=== PATIENT | male | born 1955 | race Caucasian/White ===

== ENCOUNTER → 2019-09-04 13:52 | Outpatient (BNVA) | payer MEDICAID, SELFPAY | PROVIDERS: Family Provider Family Medicine; PCP Family Medicine; Visit Provider Nurse Practitioner Family | DX: R52 Pain, unspecified (principal); N39.0 Urinary tract infection, site not specified | CPT/HCPCS: 81003; 87077; 87086; 87186 ==

== ENCOUNTER 2019-10-09 11:40 | Emergency (ER) | payer MEDICAID, SELFPAY ==
[2019-10-09 11:43] VITALS: BP 119/56; PULSE 67; RESP 16; TEMP 36.8; O2SAT 99; BMI 31.3
--- NOTE | 2019-10-09 11:58 | ED_ITS ---
Entered by Allison Brand, acting as scribe for Marcos Ruby DO HPI - General Adult General: Chief complaint: General Medical Stated complaint: Bleeding from rectum Time Seen by Provider: 10/09/19 11:57 Source: patient and RN notes reviewed Mode of arrival: ambulatory Limitations: no limitations History of Present Illness: HPI narrative: 64 yo male presents to ED with complaints of bleeding from his rectum and lower abdominal pain. He said this began last night. He said it was a small amount of blood. MD complaint: bleeding from rectum Onset (ago): day(s) (last night) Location: abdomen (lower) and buttocks (rectum) Radiation: non-radiation Severity: moderate Quality: aching Pain Consistency: intermittent Relieving factors: none Exacerbating factors: none Associated symptoms: Reports nausea and other (lower abdominal pain); Deny chest pain, dyspnea, malaise, rash or vomiting Treatments prior to arrival: none Review of Systems Const: Denies: fever, chills, body aches, change in appetite, fatigue or malaise ENMT: Denies: throat pain, ear pain, nasal discharge or nasal congestion Card: Denies: chest pain, edema, shortness of breath on exertion or shortness of breath when lying down Resp: Denies: shortness of breath, productive cough or non-productive cough GI: Reports: nausea, bloating and blood in stool; Denies: vomiting, vomiting blood, coffee grounds in vomit, diarrhea, constipation or black tarry stool : Denies: flank pain, painful urination, urinary frequency or urinary urgency Skin/Breast: Denies: rash or itching PFSH ED PFSH: Statuses (acute, chronic, etc) shown below reflect problem list status as previously entered and may not be historically accurate Social History (Updated 09/04/19 @ 14:26 by Veronica Mcneill LPN) Smoking and tobacco status: current every day smoker cigars and smokeless tobacco Alcohol intake: never Physical Exam Const: COMMON NORMALS: no apparent distress GENERAL APPEARANCE: cooperative and comfortable ORIENTATION/CONSCIOUSNESS: Yes awake, Yes oriented to person, Yes oriented to place and Yes oriented to time HENMT: COMMON NORMALS: normocephalic, head/scalp atraumatic, hearing grossly normal bilaterally, external ears normal, EAC's normal, TM's normal bilaterally, nasal mucous membranes and turbinates normal, moist oral mucous membranes and oropharynx normal HEAD & SCALP: normocephalic and atraumatic NOSE: nasal mucous membranes and turbinates normal EXTERNAL EAR: Yes external ears normal EXTERNAL AUDITORY CANAL: EAC's normal TYMPANIC MEMBRANE: TM's normal bilaterally Eye: COMMON NORMALS: PERRL, EOMs intact bilaterally, conjunctivae normal and n o scleral icterus CONJUNCTIVA: Yes conjunctivae normal PUPIL: Yes PERRL Neck/C-Spine: COMMON NORMALS: full ROM, no lymphadenopathy, supple and no JVD Lymph: LYMPHATIC: no lymphadenopathy noted and no lymphedema noted Resp: COMMON NORMALS: normal respiratory effort, no retractions, no use of accessory muscles and clear to auscultation bilaterally AUSCULTATION: clear to auscultation bilaterally Cardio: COMMON NORMALS: no JVD, regular rate, regular rhythm and no murmurs RATE: regular rate RHYTHM: regular rhythm GI: COMMON NORMALS: no hepatosplenomegaly AUSCULTATION: Yes normoactive bowel sounds PALPATION: Yes tender Details: LLQ, No guarding and Yes no hepatosplenomegaly RECTAL EXAM: Yes normal sphincter tone, Yes prostate normal and Yes heme positive stool Extremity: COMMON NORMALS: normal to inspection, normal capillary refill, no clubbing, cyanosis or edema, no calf tenderness and no pedal edema Neuro: SENSORIUM/ORIENTATION: Yes oriented to person, Yes oriented to place and Yes oriented to time Skin: COMMON NORMALS: no rashes or lesions noted GENERAL SKIN EXAM: no rashes or lesions noted Course Vital Signs: Vital signs: Vital Signs Temperature 98.3 F 10/09/19 11:43 Pulse Rate 81 10/09/19 13:12 Respiratory Rate 18 10/09/19 13:12 Blood Pressure 133/65 10/09/19 13:12 Pulse Oximetry 99 10/09/19 13:12 [facility] - General Adult Lab Data: Labs: Lab Results 10/09/19 10/09/19 10/09/19 Range/Units 12:16 12:16 12:16 WBC 9.1 (4.0-10.0) 10^3/ uL RBC 4.39 (4.1-5.3) 10^6/u L Hgb 13.0 (11.7-16.6) g/dL Hct 41.2 L (42.0-52.0) % MCV 93.8 (80-94) fL MCH 29.6 (28.0-34.0) pg MCHC 31.6 (30.0-36.0) g/dL RDW 13.6 (12.1-15.1) % Plt Count 190 (130-400) 10^3/c mm MPV 10.4 (7.4-10.4) fL Neut % (Auto) 64.7 % Lymph % (Auto) 26.7 % Vance % (Auto) 7.0 % Eos % (Auto) 1.0 % Baso % (Auto) 0.2 % Neut # (Auto) 5.9 (1.8-7.7) 10^3/u L Lymph # (Auto) 2.4 (0.8-4.8) 10^3/u L Vance # (Auto) 0.6 (0.2-0.9) 10^3/u L Eos # (Auto) 0.1 (0.0-0.8) 10^3/u L Baso # (Auto) 0.0 (0.0-0.1) 10^3/u L Nucleated RBC % (a uto) 0 % Nucleated RBCs # 0.0 /100WBC PT 14.70 H (10.5-13.3) SECO NDS INR 1.11 (0.8-1.2) APTT 30.1 (23.9-36.7) SECO NDS Sodium 136 (136-145) mmol/L Potassium 4.8 (3.5-5.1) mmol/L Chloride 103 (98-107) mmol/L Carbon Dioxide 22 (22-29) mmol/L Anion Gap 15.8 (5-19) BUN 25 H (8-23) mg/dL Creatinine 1.6 H (0.7-1.2) mg/dL GFR Calculation 43.9 L (90-130) mL/min Glucose 101 (65-115) mg/dL Calcium 9.5 (8.5-10.5) mg/dL Total Bilirubin 0.3 (0.15-1.2) mg/dL AST 18 (0-40) U/L ALT 17 (0-41) U/L Alkaline Phosphata se 94 (40-130) IU/L Total Protein 6.8 (6.6-8.7) g/dL Albumin 4.1 (3.5-5.2) g/dL Globulin 2.7 (1.3-4.6) g/dL Discharge Plan Discharge Patient Disposition: Home, Self-Care Clinical Impression: Diverticula, colon Condition: Stable Prescriptions: New Cipro 500 mg tablet 500 mg PO BID 7 Days Qty: 14 RF: 0 Flagyl 500 mg tablet 500 mg PO Q8H 7 Days Qty: 21 RF: 0 No Action amlodipine 5 mg tablet 5 mg PO ONCE RF: 0 clonidine HCl 0.1 mg tablet 0.1 mg PO .PRN RF: 0 aspirin [Aspir-Low] 81 mg tablet,delayed release (DR/EC) 81 mg PO ONCE RF: 0 ascorbic acid (vitamin C) [Vitamin C] 1,000 mg tablet 500 mg PO ONCE RF: 0 pantoprazole 40 mg tablet,delayed release (DR/EC) 40 mg PO BID RF: 0 docusate sodium [Stool Softener] 100 mg capsule 100 mg PO TID RF: 0 hydrocodone-acetaminophen 7.5-325 mg tablet 1 tab PO TID RF: 0 methenamine hippurate 1 gram tablet 1 gm PO BID RF: 0 rosuvastatin 5 mg tablet 5 mg PO ONCE Qty: 30 RF: 0 potassium citrate 10 mEq (1,080 mg) tablet extended release 10 meq PO ONCE Qty: 30 RF: 0 Discharge Orders: Discharge Order (Routine); Ordered 10/09/19 Ordered By: Marcos Ruby Referrals: Valencia Laureano DO [Primary Care Provider] - Discharge Diet: Full LIquid Discharge Activity: Increase activity as tolerated Activity Restrictions/Additional Instructions: Case management will call to arrange for referral for endoscopy Interventions: ED Discharge Assessment Last Done: 10/09/19 13:12 Coding Level of Care Code ED Resident Care Director for Chg Fwd Exam Problem Focused The documentation recorded by the Sunday perez Valerie R, accurately reflects the service I personally performed and the decisions made by Tung barry Curtis L, DO
[2019-10-09 12:15] VITALS: O2SAT 99
[2019-10-09 12:25] LABS: Basophils % 0.2 %; Eosinophils # 0.1 10^3/uL (0.0-0.8); Hematocrit 41.2 % (42.0-52.0); Lymphocytes # 2.4 10^3/uL (0.8-4.8); Lymphocytes % 26.7 %; Mean Corpuscular HGB Conc 31.6 g/dL (30.0-36.0); Mean Corpuscular Hemoglobin 29.6 pg (28.0-34.0); Mean Corpuscular Volume 93.8 fL (80-94); Mean Platelet Volume 10.4 fL (7.4-10.4); Monocytes # 0.6 10^3/uL (0.2-0.9); Neutrophils # 5.9 10^3/uL (1.8-7.7); Neutrophils % 64.7 %; Nucleated Red Blood Cells % 0 %; Platelet Count 190 10^3/cmm (130-400); Red Blood Count 4.39 10^6/uL (4.1-5.3); Red Cell Distribution Width 13.6 % (12.1-15.1); White Blood Count 9.1 10^3/uL (4.0-10.0)
[2019-10-09 12:41] LABS: Alanine Aminotransferase 17 U/L (0-41); Albumin Level 4.1 g/dL (3.5-5.2); Alkaline Phosphatase 94 IU/L (40-130); Anion Gap 15.8 (5-19); Aspartate Amino Transferase 18 U/L (0-40); Blood Urea Nitrogen 25 mg/dL (8-23); Calcium 9.5 mg/dL (8.5-10.5); Carbon Dioxide 22 mmol/L (22-29); Chloride 103 mmol/L (98-107); Globulin 2.7 g/dL (1.3-4.6); Glomerular Filtration Rate 43.9 mL/min (90-130); Glucose 101 mg/dL (65-115); Potassium 4.8 mmol/L (3.5-5.1); Sodium 136 mmol/L (136-145); Total Bilirubin 0.3 mg/dL (0.15-1.2); Total Protein 6.8 g/dL (6.6-8.7)
[2019-10-09 13:12] VITALS: BP 133/65; PULSE 81; RESP 18; O2SAT 99
[2019-10-09 13:19] LABS: INR 1.11 (0.8-1.2)
[2019-10-09 13:20] LABS: Partial Thromboplastin Time 30.1 SECONDS (23.9-36.7)
== END 2019-10-09 13:12 | disposition home or self-care (01) ==
LOC: ER 10-17 08:34
PROVIDERS: Emergency Medicine; Emergency Provider Family Medicine; Family Provider Family Medicine; PCP Family Medicine
DX: K57.30 Diverticulosis of large intestine without perforation or abscess without bleeding (principal); F17.290 Nicotine dependence, other tobacco product, uncomplicated
CPT/HCPCS: 36415; 80053; 85025; 85610; 85730; 99282

== ENCOUNTER → 2019-10-24 14:00 | Outpatient (BNVA) | payer MEDICAID, SELFPAY | PROVIDERS: Family Provider Family Medicine; PCP Family Medicine; Visit Provider Anesthesiology | DX: M51.36 Other intervertebral disc degeneration, lumbar region (principal); F17.219 Nicotine dependence, cigarettes, with unspecified nicotine-induced disorders; F17.220 Nicotine dependence, chewing tobacco, uncomplicated; Z79.891 Long term (current) use of opiate analgesic; Z71.6 Tobacco abuse counseling | CPT/HCPCS: 99214 ==

== ENCOUNTER → 2019-11-06 10:50 | Outpatient (BNVA) | payer MEDICAID, SELFPAY | PROVIDERS: Family Provider Family Medicine; PCP Family Medicine; Visit Provider Family Medicine | DX: E78.5 Hyperlipidemia, unspecified (principal); F17.219 Nicotine dependence, cigarettes, with unspecified nicotine-induced disorders | CPT/HCPCS: 80053; 80061; 85025 ==

== ENCOUNTER 2020-03-08 21:27 | Inpatient (IN) | payer MEDICAID, SELFPAY ==
[2020-03-08 21:28] VITALS: BP 133/83; PULSE 76; RESP 18; TEMP 36.8; O2SAT 98; BMI 31.3
--- NOTE | 2020-03-08 21:34 | CTR_ITS ---
PROCEDURE INFORMATION: Exam: CT Head Without Contrast Exam date and time: 03/08/2020 10:25 PM Age: 64 years old Clinical indication: Other: Gen weakness; Patient HX: C/O worsening weakness x 6 months TECHNIQUE: Imaging protocol: Computed tomography of the head without contrast. Radiation optimization: All CT scans at this facility use at least one of these dose optimization techniques: automated exposure control; mA and/or kV adjustment per patient size (includes targeted exams where dose is matched to clinical indication); or iterative reconstruction. COMPARISON: CT head wo con* [id number] 05/17/2018 6:08 AM FINDINGS: Examination is limited by artifacts from patient motion. There are prominent intracranial arterial calcifications. Evaluation of the brain demonstrates no other convincing areas of abnormal density when allowing for artifacts from patient motion. There is mild cerebral cortical atrophy. Ventricles do not appear significantly dilated. No definite depressed calvarial fracture is demonstrated. Visualized paranasal sinuses and mastoid air cells demonstrate no significant opacification. CT/CT head wo con* [id number] IMPRESSION: No definite acute intracranial process is demonstrated when allowing for artifacts from patient motion. Total DLP (mGy-cm): 790.79 Radiation Dose CTDIVOL = (mGy): DLP = 790.79 (mGy-cm)
--- NOTE | 2020-03-08 21:34 | XRR_ITS ---
PROCEDURE INFORMATION: Exam: XR Chest, 1 View Exam date and time: 03/08/2020 10:30 PM Age: 64 years old Clinical indication: Other: Weakness; Prior surgery; Surgery type: Heart TECHNIQUE: Imaging protocol: XR of the chest Views: 1 view. COMPARISON: CR Chest 1 [place] [id number] 05/21/2018 12:25 PM FINDINGS: Lungs: Pleural thickening left hemithorax laterally. Adjacent parenchymal scarring. No focal infiltrate. Findings are stable. Pleural space: Unremarkable. No pleural effusion. No pneumothorax. Heart/Mediastinum: Unremarkable. No cardiomegaly. Bones/joints: Prior sternotomy XR/XR chest 1V portable [id number] IMPRESSION: Pleural thickening left hemithorax laterally. Adjacent parenchymal scarring. No focal infiltrate. Findings are stable. Lungs are otherwise well aerated.
--- NOTE | 2020-03-08 21:37 | W.ED.WEAKNES ---
Documented by User: Ashly Henning MD 03/09/20 10:52 HPI - Weakness General: Chief complaint: Weakness Stated complaint: WEAKNESS Time Seen by Provider: 03/08/20 21:29 Source: patient and EMS Mode of arrival: EMS Limitations: no limitations History of Present Illness: HPI Narrative: 64-year-old male who states he has been feeling weak since September. He states that the weakness got worse today and he is having difficulty ambulating. He states he is able to stand and only walk a few steps before he is too weak to walk anymore. He denies any pain anywhere. He denies any worsening or improving factors. He denies any fevers. MD Complaint: generalized weakness Associated symptoms: Denies chest pain, chills, dysuria, easy bruising, fever(s), headache(s), nausea or vomiting Review of Systems Const: Denies: fever(s), chills, body aches or change in appetite Eyes: Denies: blurry vision or eye discomfort ENMT: Denies: throat pain or dental pain Card: Denies: chest pain Resp: Denies: dyspnea GI: Denies: abdominal pain, nausea, vomiting or diarrhea : Denies: dysuria Musc: Reports: muscle weakness Skin/Breast: Denies: rash Neuro: Denies: headache(s) Psych: Denies: depression Henry/Lymph: Denies: easy bruising All/Imm: Denies: urticaria PFSH ED PFSH: Medical History (Updated 03/09/20 @ 02:56 by Candace Michael MD) Aortic embolism or thrombosis Atherosclerosis of coronary artery of [place] heart with stable angina pectoris Chronic idiopathic constipation CKD (chronic kidney disease), stage III DDD (degenerative disc disease), lumbar Follows with neurosurgery Diastolic CHF Dyslipidemia GERD (gastroesophageal reflux disease) Hypertension Nocturnal enuresis Perforated gastric ulcer PVC (premature ventricular contraction) 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, on chronic amiodorone therapy Recurrent UTI Urinary retention Surgical History (Updated 03/09/20 @ 02:56 by Candace Michael MD) H/O esophagogastroduodenoscopy H/O exploratory laparotomy History of colonoscopy with polypectomy History of coronary artery stent placement X1 around 2018 in [place] History of heart bypass surgery 2 vessels at [facility] in [place] History of incisional hernia repair History of open heart surgery History of tonsillectomy S/P tonsillectomy and adenoidectomy Status post colonoscopy 2019 Family History Other CAD (coronary artery disease) Cancer Hypertension Social History Smoking and tobacco status: current every day smoker cigars Cigar details: 1 CIGAR EVERY 3 DAYS and smokeless tobacco Smokeless tobacco user: chewing tobacco Smokeless tobacco details: 1 CAN EVERY 2-3 DAYS Alcohol intake: never Caregiver/support person: No Lives independently: No Household members: family Marital status: Single Current occupational status: disabled History of recent travel: No Current gender identity: Male Physical Exam Const: COMMON NORMALS: no acute distress, patient oriented x3 and healthy appearing HENMT: COMMON NORMALS: normocephalic and atraumatic HEAD & SCALP: normocephalic and atraumatic Eye: COMMON NORMALS: Equal, round and reactive pupils present and EOMs intact bilaterally PUPIL: Yes Equal, round and reactive pupils present Neck/C-Spine: COMMON NORMALS: full ROM and supple Chest: COMMONS NORMALS: normal inspection of the chest and normal palpation of entire chest wall Resp: COMMON NORMALS: normal respiratory effort, No retractions, No use of accessory muscles and clear to auscultation bilaterally AUSCULTATION: clear to auscultation bilaterally Cardio: COMMON NORMALS: regular rate, regular rhythm and No murmurs present (Cardio) RATE: regular rate RHYTHM: regular rhythm GI: COMMON NORMALS: Normal to inspection, nondistended, normoactive bowel sounds present, Soft to palpation, non-tender and no masses PALPATION: Yes Soft to palpation Extremity: COMMON NORMALS: normal to inspection and full ROM Neuro: COMMON NORMALS: patient oriented x3, moves all extremities and no focal motor deficits Psych: COMMON NORMALS: mental status grossly normal, Normal thought process present and cooperative THOUGHT PROCESS: Normal thought process present Skin: COMMON NORMALS: no rashes or lesions noted and no wounds GENERAL SKIN EXAM: no rashes or lesions noted Course Vital Signs: Vital signs: Vital Signs Temperature 99.3 F 03/09/20 08:00 Pulse Rate 84 03/09/20 08:00 Respiratory Rate 20 H 03/09/20 08:00 Blood Pressure 162/98 03/09/20 08:00 Pulse Oximetry 100 03/09/20 08:00 MDM - Weakness MDM Narrative: Medical decision making narrative: 64-year-old the presents here with weakness does have a leukocytosis. Patient likely has urinary tract infection. Patient's care turned over to Dr. Otero to follow urinalysis. Lab Data: Labs: Lab Results 03/08/20 03/08/20 03/08/20 Range/Units 21:42 21:42 21:42 WBC 17.8 H (4.0-10.0) 10^3/ uL RBC 4.66 (4.1-5.3) 10^6/u L Hgb 14.3 (11.7-16.6) g/dL Hct 46.7 (42.0-52.0) % MCV 100.2 H (80-94) fL MCH 30.7 (28.0-34.0) pg MCHC 30.6 (30.0-36.0) g/dL RDW 13.3 (12.1-15.1) % Plt Count 174 (130-400) 10^3/c mm MPV 10.2 (7.4-10.4) fL Neut % (Auto) 81.4 % Lymph % (Auto) 11.5 % [place] % (Auto) 6.3 % Eos % (Auto) 0.1 % Baso % (Auto) 0.2 % Neut # (Auto) 14.5 H (1.8-7.7) 10^3/u L Lymph # (Auto) 2.1 (0.8-4.8) 10^3/u L [place] # (Auto) 1.1 H (0.2-0.9) 10^3/u L Eos # (Auto) 0.0 (0.0-0.8) 10^3/u L Baso # (Auto) 0.0 (0.0-0.1) 10^3/u L Nucleated RBC % (a uto) 0 % Nucleated RBCs # 0.0 /100WBC PT (10.5-13.3) SECO NDS INR (0.8-1.2) Sodium 132 L (136-145) mmol/L Potassium 4.2 (3.5-5.1) mmol/L Chloride 97 L (98-107) mmol/L Carbon Dioxide 20 L (22-29) mmol/L Anion Gap 19.2 H (5-19) BUN 18 (8-23) mg/dL Creatinine 1.6 H (0.7-1.2) mg/dL GFR Calculation 43.9 L (90-130) mL/min Glucose 123 H (65-115) mg/dL POC Glucose (70-110) mg/dL Calculated Osmolal ity 272 L (285-295) mOsm/k g Calcium 9.2 (8.5-10.5) mg/dL Magnesium 2.1 (1.7-2.3) mg/dL Total Bilirubin 0.7 (0.15-1.2) mg/dL AST 20 (0-40) U/L ALT 18 (0-41) U/L Alkaline Phosphata se 74 (40-130) IU/L Troponin T Baselin e 37 H (0-15) ng/L Troponin T 120 Min [place] (0-15) ng/L Delta Troponin T (0-10) ABS# Total Protein 6.7 (6.6-8.7) g/dL Albumin 4.2 (3.5-5.2) g/dL Globulin 2.5 (1.3-4.6) g/dL Lipase 15 (13-60) U/L TSH 0.53 (0.27-4.20) uIU/ mL Urine Color (Yellow) Urine Appearance (CLEAR) Urine pH (5-7) Ur Specific Gravit y (1.005-1.030) Urine Protein (Negative) Urine Glucose (UA) (Normal) Urine Ketones (Negative) Urine Blood (Negative) Urine Nitrate (Negative) Urine Bilirubin (NEGATIVE) Urine Urobilinogen (Negative) mg/dL Ur Leukocyte Lois ase (Negative) Urine RBC (0-2) /hpf Urine WBC (0-5) /hpf Ur Squamous Epith Cells (0-5) Amorphous Sediment Urine Bacteria (NONE) Ethyl Alcohol < 10 (0-10) mg/dL 03/08/20 03/08/20 03/08/20 Range/Units 22:17 22:20 22:55 WBC (4.0-10.0) 10^3/ uL RBC (4.1-5.3) 10^6/u L Hgb (11.7-16.6) g/dL Hct (42.0-52.0) % MCV (80-94) fL MCH (28.0-34.0) pg MCHC (30.0-36.0) g/dL RDW (12.1-15.1) % Plt Count (130-400) 10^3/c mm MPV (7.4-10.4) fL Neut % (Auto) % Lymph % (Auto) % [place] % (Auto) % Eos % (Auto) % Baso % (Auto) % Neut # (Auto) (1.8-7.7) 10^3/u L Lymph # (Auto) (0.8-4.8) 10^3/u L [place] # (Auto) (0.2-0.9) 10^3/u L Eos # (Auto) (0.0-0.8) 10^3/u L Baso # (Auto) (0.0-0.1) 10^3/u L Nucleated RBC % (a uto) % Nucleated RBCs # /100WBC PT 14.50 H (10.5-13.3) SECO NDS INR 1.09 (0.8-1.2) Sodium (136-145) mmol/L Potassium (3.5-5.1) mmol/L Chloride (98-107) mmol/L Carbon Dioxide (22-29) mmol/L Anion Gap (5-19) BUN (8-23) mg/dL Creatinine (0.7-1.2) mg/dL GFR Calculation (90-130) mL/min Glucose (65-115) mg/dL POC Glucose 123 (70-110) mg/dL Calculated Osmolal ity (285-295) mOsm/k g Calcium (8.5-10.5) mg/dL Magnesium (1.7-2.3) mg/dL Total Bilirubin (0.15-1.2) mg/dL AST (0-40) U/L ALT (0-41) U/L Alkaline Phosphata se (40-130) IU/L Troponin T Baselin e (0-15) ng/L Troponin T 120 Min [place] (0-15) ng/L Delta Troponin T (0-10) ABS# Total Protein (6.6-8.7) g/dL Albumin (3.5-5.2) g/dL Globulin (1.3-4.6) g/dL Lipase (13-60) U/L TSH (0.27-4.20) uIU/ mL Urine Color Yellow (Yellow) Urine Appearance Cloudy (CLEAR) Urine pH 6 (5-7) Ur Specific Gravit y 1.015 (1.005-1.030) Urine Protein Neg (Negative) Urine Glucose (UA) Norm (Normal) Urine Ketones Negative (Negative) Urine Blood 3+ H (Negative) Urine Nitrate Negative (Negative) Urine Bilirubin Neg (NEGATIVE) Urine Urobilinogen Norm (Negative) mg/dL Ur Leukocyte Lois ase 2+ H (Negative) Urine RBC 5-10 H (0-2) /hpf Urine WBC Too numerous to c nt H (0-5) /hpf Ur Squamous Epith Cells 0-4 H (0-5) Amorphous Sediment Not Reportable Urine Bacteria 4+ H (NONE) Ethyl Alcohol (0-10) mg/dL 03/09/20 Range/Units 00:13 WBC (4.0-10.0) 10^3/ uL RBC (4.1-5.3) 10^6/u L Hgb (11.7-16.6) g/dL Hct (42.0-52.0) % MCV (80-94) fL MCH (28.0-34.0) pg MCHC (30.0-36.0) g/dL RDW (12.1-15.1) % Plt Count (130-400) 10^3/c mm MPV (7.4-10.4) fL Neut % (Auto) % Lymph % (Auto) % [place] % (Auto) % Eos % (Auto) % Baso % (Auto) % Neut # (Auto) (1.8-7.7) 10^3/u L Lymph # (Auto) (0.8-4.8) 10^3/u L [place] # (Auto) (0.2-0.9) 10^3/u L Eos # (Auto) (0.0-0.8) 10^3/u L Baso # (Auto) (0.0-0.1) 10^3/u L Nucleated RBC % (a uto) % Nucleated RBCs # /100WBC PT (10.5-13.3) SECO NDS INR (0.8-1.2) Sodium (136-145) mmol/L Potassium (3.5-5.1) mmol/L Chloride (98-107) mmol/L Carbon Dioxide (22-29) mmol/L Anion Gap (5-19) BUN (8-23) mg/dL Creatinine (0.7-1.2) mg/dL GFR Calculation (90-130) mL/min Glucose (65-115) mg/dL POC Glucose (70-110) mg/dL Calculated Osmolal ity (285-295) mOsm/k g Calcium (8.5-10.5) mg/dL Magnesium (1.7-2.3) mg/dL Total Bilirubin (0.15-1.2) mg/dL AST (0-40) U/L ALT (0-41) U/L Alkaline Phosphata se (40-130) IU/L Troponin T Baselin e (0-15) ng/L Troponin T 120 Min [place] 25.66 H (0-15) ng/L Delta Troponin T -11.34 L (0-10) ABS# Total Protein (6.6-8.7) g/dL Albumin (3.5-5.2) g/dL Globulin (1.3-4.6) g/dL Lipase (13-60) U/L TSH (0.27-4.20) uIU/ mL Urine Color (Yellow) Urine Appearance (CLEAR) Urine pH (5-7) Ur Specific Gravit y (1.005-1.030) Urine Protein (Negative) Urine Glucose (UA) (Normal) Urine Ketones (Negative) Urine Blood (Negative) Urine Nitrate (Negative) Urine Bilirubin (NEGATIVE) Urine Urobilinogen (Negative) mg/dL Ur Leukocyte Lois ase (Negative) Urine RBC (0-2) /hpf Urine WBC (0-5) /hpf Ur Squamous Epith Cells (0-5) Amorphous Sediment Urine Bacteria (NONE) Ethyl Alcohol (0-10) mg/dL Imaging Data^: CXR: Attestation: I personally reviewed and interpreted this imaging study as follows: My impression: no acute abnormality Discharge Plan Discharge Patient Disposition: Admitted As Inpatient Admit Provider: Candace Michael Clinical Impression: Recurrent UTI Sepsis Qualifiers: Sepsis type: sepsis due to unspecified organism Sepsis acute organ dysfunction status: without acute organ dysfunction Qualified Code(s): A41.9 - Sepsis, unspecified organism Condition: Stable Referrals: Valencia Laureano DO [Primary Care Provider] - Discharge Date/Time: 03/09/20 02:41 Coding Level of Care Code ED Solidworks Drafter for Chg Fwd Exam Comprehensive Documented by User: Lester Otero DO 03/09/20 02:01 HPI - Weakness General: Chief complaint: Weakness Stated complaint: WEAKNESS Time Seen by Provider: 03/08/20 21:29 PFSH ED PFSH: Medical History (Updated 03/09/20 @ 02:56 by Candace Michael MD) Aortic embolism or thrombosis Atherosclerosis of coronary artery of [place] heart with stable angina pectoris Chronic idiopathic constipation CKD (chronic kidney disease), stage III DDD (degenerative disc disease), lumbar Follows with neurosurgery Diastolic CHF Dyslipidemia GERD (gastroesophageal reflux disease) Hypertension Nocturnal enuresis Perforated gastric ulcer PVC (premature ventricular contraction) 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, on chronic amiodorone therapy Recurrent UTI Urinary retention Surgical History (Updated 03/09/20 @ 02:56 by Candace Michael MD) H/O esophagogastroduodenoscopy H/O exploratory laparotomy History of colonoscopy with polypectomy History of coronary artery stent placement X1 around 2018 in [place] History of heart bypass surgery 2 vessels at [facility] in [place] History of incisional hernia repair History of open heart surgery History of tonsillectomy S/P tonsillectomy and adenoidectomy Status post colonoscopy 2019 Family History Other CAD (coronary artery disease) Cancer Hypertension Social History Smoking and tobacco status: current every day smoker cigars Cigar details: 1 CIGAR EVERY 3 DAYS and smokeless tobacco Smokeless tobacco user: chewing tobacco Smokeless tobacco details: 1 CAN EVERY 2-3 DAYS Alcohol intake: never Caregiver/support person: No Lives independently: No Household members: family Marital status: Single Current occupational status: disabled History of recent travel: No Current gender identity: Male Course Vital Signs: Vital signs: Vital Signs Temperature 99.3 F 03/09/20 08:00 Pulse Rate 84 03/09/20 08:00 Respiratory Rate 20 H 03/09/20 08:00 Blood Pressure 162/98 03/09/20 08:00 Pulse Oximetry 100 03/09/20 08:00 MDM - Weakness MDM Narrative: Medical decision making narrative: 64-year-old male checked out to me at shift change by Dr. Henning. This patient is experienced increasing generalized weakness over the past few days. He self caths for urine. He has a white blood cell count of 17.8, with a significant urinary tract infection, and a bicarbonate level of 20. Blood cultures were drawn. During his stay in the ER, he popped a fever of 103. He was given Tylenol. Started on Rocephin. He will be admitted. Lab Data: Labs: Lab Results 03/08/20 03/08/20 03/08/20 Range/Units 21:42 21:42 21:42 WBC 17.8 H (4.0-10.0) 10^3/ uL RBC 4.66 (4.1-5.3) 10^6/u L Hgb 14.3 (11.7-16.6) g/dL Hct 46.7 (42.0-52.0) % MCV 100.2 H (80-94) fL MCH 30.7 (28.0-34.0) pg MCHC 30.6 (30.0-36.0) g/dL RDW 13.3 (12.1-15.1) % Plt Count 174 (130-400) 10^3/c mm MPV 10.2 (7.4-10.4) fL Neut % (Auto) 81.4 % Lymph % (Auto) 11.5 % [place] % (Auto) 6.3 % Eos % (Auto) 0.1 % Baso % (Auto) 0.2 % Neut # (Auto) 14.5 H (1.8-7.7) 10^3/u L Lymph # (Auto) 2.1 (0.8-4.8) 10^3/u L [place] # (Auto) 1.1 H (0.2-0.9) 10^3/u L Eos # (Auto) 0.0 (0.0-0.8) 10^3/u L Baso # (Auto) 0.0 (0.0-0.1) 10^3/u L Nucleated RBC % (a uto) 0 % Nucleated RBCs # 0.0 /100WBC PT (10.5-13.3) SECO NDS INR (0.8-1.2) Sodium 132 L (136-145) mmol/L Potassium 4.2 (3.5-5.1) mmol/L Chloride 97 L (98-107) mmol/L Carbon Dioxide 20 L (22-29) mmol/L Anion Gap 19.2 H (5-19) BUN 18 (8-23) mg/dL Creatinine 1.6 H (0.7-1.2) mg/dL GFR Calculation 43.9 L (90-130) mL/min Glucose 123 H (65-115) mg/dL POC Glucose (70-110) mg/dL Calculated Osmolal ity 272 L (285-295) mOsm/k g Calcium 9.2 (8.5-10.5) mg/dL Magnesium 2.1 (1.7-2.3) mg/dL Total Bilirubin 0.7 (0.15-1.2) mg/dL AST 20 (0-40) U/L ALT 18 (0-41) U/L Alkaline Phosphata se 74 (40-130) IU/L Troponin T Baselin e 37 H (0-15) ng/L Troponin T 120 Min [place] (0-15) ng/L Delta Troponin T (0-10) ABS# Total Protein 6.7 (6.6-8.7) g/dL Albumin 4.2 (3.5-5.2) g/dL Globulin 2.5 (1.3-4.6) g/dL Lipase 15 (13-60) U/L TSH 0.53 (0.27-4.20) uIU/ mL Urine Color (Yellow) Urine Appearance (CLEAR) Urine pH (5-7) Ur Specific Gravit y (1.005-1.030) Urine Protein (Negative) Urine Glucose (UA) (Normal) Urine Ketones (Negative) Urine Blood (Negative) Urine Nitrate (Negative) Urine Bilirubin (NEGATIVE) Urine Urobilinogen (Negative) mg/dL Ur Leukocyte Lois ase (Negative) Urine RBC (0-2) /hpf Urine WBC (0-5) /hpf Ur Squamous Epith Cells (0-5) Amorphous Sediment Urine Bacteria (NONE) Ethyl Alcohol < 10 (0-10) mg/dL 03/08/20 03/08/20 03/08/20 Range/Units 22:17 22:20 22:55 WBC (4.0-10.0) 10^3/ uL RBC (4.1-5.3) 10^6/u L Hgb (11.7-16.6) g/dL Hct (42.0-52.0) % MCV (80-94) fL MCH (28.0-34.0) pg MCHC (30.0-36.0) g/dL RDW (12.1-15.1) % Plt Count (130-400) 10^3/c mm MPV (7.4-10.4) fL Neut % (Auto) % Lymph % (Auto) % [place] % (Auto) % Eos % (Auto) % Baso % (Auto) % Neut # (Auto) (1.8-7.7) 10^3/u L Lymph # (Auto) (0.8-4.8) 10^3/u L [place] # (Auto) (0.2-0.9) 10^3/u L Eos # (Auto) (0.0-0.8) 10^3/u L Baso # (Auto) (0.0-0.1) 10^3/u L Nucleated RBC % (a uto) % Nucleated RBCs # /100WBC PT 14.50 H (10.5-13.3) SECO NDS INR 1.09 (0.8-1.2) Sodium (136-145) mmol/L Potassium (3.5-5.1) mmol/L Chloride (98-107) mmol/L Carbon Dioxide (22-29) mmol/L Anion Gap (5-19) BUN (8-23) mg/dL Creatinine (0.7-1.2) mg/dL GFR Calculation (90-130) mL/min Glucose (65-115) mg/dL POC Glucose 123 (70-110) mg/dL Calculated Osmolal ity (285-295) mOsm/k g Calcium (8.5-10.5) mg/dL Magnesium (1.7-2.3) mg/dL Total Bilirubin (0.15-1.2) mg/dL AST (0-40) U/L ALT (0-41) U/L Alkaline Phosphata se (40-130) IU/L Troponin T Baselin e (0-15) ng/L Troponin T 120 Min [place] (0-15) ng/L Delta Troponin T (0-10) ABS# Total Protein (6.6-8.7) g/dL Albumin (3.5-5.2) g/dL Globulin (1.3-4.6) g/dL Lipase (13-60) U/L TSH (0.27-4.20) uIU/ mL Urine Color Yellow (Yellow) Urine Appearance Cloudy (CLEAR) Urine pH 6 (5-7) Ur Specific Gravit y 1.015 (1.005-1.030) Urine Protein Neg (Negative) Urine Glucose (UA) Norm (Normal) Urine Ketones Negative (Negative) Urine Blood 3+ H (Negative) Urine Nitrate Negative (Negative) Urine Bilirubin Neg (NEGATIVE) Urine Urobilinogen Norm (Negative) mg/dL Ur Leukocyte Lois ase 2+ H (Negative) Urine RBC 5-10 H (0-2) /hpf Urine WBC Too numerous to c nt H (0-5) /hpf Ur Squamous Epith Cells 0-4 H (0-5) Amorphous Sediment Not Reportable Urine Bacteria 4+ H (NONE) Ethyl Alcohol (0-10) mg/dL 03/09/20 Range/Units 00:13 WBC (4.0-10.0) 10^3/ uL RBC (4.1-5.3) 10^6/u L Hgb (11.7-16.6) g/dL Hct (42.0-52.0) % MCV (80-94) fL MCH (28.0-34.0) pg MCHC (30.0-36.0) g/dL RDW (12.1-15.1) % Plt Count (130-400) 10^3/c mm MPV (7.4-10.4) fL Neut % (Auto) % Lymph % (Auto) % [place] % (Auto) % Eos % (Auto) % Baso % (Auto) % Neut # (Auto) (1.8-7.7) 10^3/u L Lymph # (Auto) (0.8-4.8) 10^3/u L [place] # (Auto) (0.2-0.9) 10^3/u L Eos # (Auto) (0.0-0.8) 10^3/u L Baso # (Auto) (0.0-0.1) 10^3/u L Nucleated RBC % (a uto) % Nucleated RBCs # /100WBC PT (10.5-13.3) SECO NDS INR (0.8-1.2) Sodium (136-145) mmol/L Potassium (3.5-5.1) mmol/L Chloride (98-107) mmol/L Carbon Dioxide (22-29) mmol/L Anion Gap (5-19) BUN (8-23) mg/dL Creatinine (0.7-1.2) mg/dL GFR Calculation (90-130) mL/min Glucose (65-115) mg/dL POC Glucose (70-110) mg/dL Calculated Osmolal ity (285-295) mOsm/k g Calcium (8.5-10.5) mg/dL Magnesium (1.7-2.3) mg/dL Total Bilirubin (0.15-1.2) mg/dL AST (0-40) U/L ALT (0-41) U/L Alkaline Phosphata se (40-130) IU/L Troponin T Baselin e (0-15) ng/L Troponin T 120 Min [place] 25.66 H (0-15) ng/L Delta Troponin T -11.34 L (0-10) ABS# Total Protein (6.6-8.7) g/dL Albumin (3.5-5.2) g/dL Globulin (1.3-4.6) g/dL Lipase (13-60) U/L TSH (0.27-4.20) uIU/ mL Urine Color (Yellow) Urine Appearance (CLEAR) Urine pH (5-7) Ur Specific Gravit y (1.005-1.030) Urine Protein (Negative) Urine Glucose (UA) (Normal) Urine Ketones (Negative) Urine Blood (Negative) Urine Nitrate (Negative) Urine Bilirubin (NEGATIVE) Urine Urobilinogen (Negative) mg/dL Ur Leukocyte Lois ase (Negative) Urine RBC (0-2) /hpf Urine WBC (0-5) /hpf Ur Squamous Epith Cells (0-5) Amorphous Sediment Urine Bacteria (NONE) Ethyl Alcohol (0-10) mg/dL Discharge Plan Discharge Patient Disposition: Admitted As Inpatient Admit Provider: Candace Michael Clinical Impression: Recurrent UTI Sepsis Qualifiers: Sepsis type: sepsis due to unspecified organism Sepsis acute organ dysfunction status: without acute organ dysfunction Qualified Code(s): A41.9 - Sepsis, unspecified organism Condition: Stable Referrals: Valencia Laureano DO [Primary Care Provider] - Discharge Date/Time: 03/09/20 02:41 Coding Level of Care Code ED Solidworks Drafter for Chg Fwd Exam Comprehensive
--- NOTE | 2020-03-08 21:49 | ECG_ITS ---
[facility] Test Date: 2020-03-08 Pat Name: Cali Turner Department: Room: Gender: Male Child Nutrition Assistant: : 1955 Requested By: Ashly Henning Order Number: [id number] Lam MD: Raphael Harper M.D. Measurements Intervals [place] Rate: 76 P: 26 MT: 187 QRS: 33 QRSD: 102 T: 31 QT: 399 QTc: 451 Interpretive Statements SINUS RHYTHM POSSIBLE LEFT ATRIAL ENLARGEMENT [-0.1mV P WAVE IN V1/V2] SEPTAL MYOCARDIAL INFARCTION , OF INDETERMINATE AGE [40+ ms Q WAVE IN V1/V2] MODERATE T-WAVE ABNORMALITY, CONSIDER LATERAL ISCHEMIA [-0.1+ mV T WAVE IN I/aVL/V5/V6] Compared to ECG 06/25/2019 18:39:59 Possible ischemia now present Incomplete right bundle-branch block no longer present Myocardial infarct finding still present T-wave abnormality still present Electronically Signed On 03-09-2020 16:53:57 CDT by Raphael Harper M.D. [id number] [email or web address]
[2020-03-08 21:54] LABS: Basophils % 0.2 %; Eosinophils % 0.1 %; Hematocrit 46.7 % (42.0-52.0); Hemoglobin 14.3 g/dL (11.7-16.6); Lymphocytes # 2.1 10^3/uL (0.8-4.8); Lymphocytes % 11.5 %; Mean Corpuscular HGB Conc 30.6 g/dL (30.0-36.0); Mean Corpuscular Hemoglobin 30.7 pg (28.0-34.0); Mean Corpuscular Volume 100.2 fL (80-94); Mean Platelet Volume 10.2 fL (7.4-10.4); Monocytes # 1.1 10^3/uL (0.2-0.9); Monocytes % 6.3 %; Neutrophils # 14.5 10^3/uL (1.8-7.7); Neutrophils % 81.4 %; Nucleated Red Blood Cells % 0 %; Platelet Count 174 10^3/cmm (130-400); Red Blood Count 4.66 10^6/uL (4.1-5.3); Red Cell Distribution Width 13.3 % (12.1-15.1); White Blood Count 17.8 10^3/uL (4.0-10.0)
[2020-03-08 22:00] VITALS: BP 101/65; PULSE 77; RESP 33; O2SAT 97
[2020-03-08] MEDS: sodium chloride 0.9% 1,000 ML 999 ML IV (22:19)
[2020-03-08 22:21] LABS: Troponin(5th) Baseline 37 ng/L (0-15)
[2020-03-08 22:21] LABS: Glucose Point of Care 123 mg/dL (70-110)
[2020-03-08 22:30] LABS: Alanine Aminotransferase 18 U/L (0-41); Albumin Level 4.2 g/dL (3.5-5.2); Alkaline Phosphatase 74 IU/L (40-130); Anion Gap 19.2 (5-19); Blood Urea Nitrogen 18 mg/dL (8-23); Calcium 9.2 mg/dL (8.5-10.5); Carbon Dioxide 20 mmol/L (22-29); Chloride 97 mmol/L (98-107); Globulin 2.5 g/dL (1.3-4.6); Glomerular Filtration Rate 43.9 mL/min (90-130); Glucose 123 mg/dL (65-115); Lipase 15 U/L (13-60); Magnesium 2.1 mg/dL (1.7-2.3); Osmolality Calculated 272 mOsm/kg (285-295); Potassium 4.2 mmol/L (3.5-5.1); Sodium 132 mmol/L (136-145); Thyroid Stimulating Hormone 0.53 uIU/mL (0.27-4.20); Total Bilirubin 0.7 mg/dL (0.15-1.2); Total Protein 6.7 g/dL (6.6-8.7)
[2020-03-08 22:35] LABS: Alcohol Level < 10 mg/dL (0-10)
[2020-03-08 22:36] LABS: Aspartate Amino Transferase 20 U/L (0-40)
[2020-03-08 23:13] VITALS: PULSE 82; RESP 14; O2SAT 98
[2020-03-08] MEDS: ipratropium-albuterol 3 mL Neb INHALATION (23:13)
[2020-03-08 23:16] VITALS: PULSE 83; RESP 16; O2SAT 99
[2020-03-08 23:21] LABS: Add Urine Microscopic? YES; Bilirubin Urine Neg (NEGATIVE); Blood Urine 3+ (Negative); Glucose Urine UA Norm (Normal); Ketones Urine Negative (Negative); Leukocyte Esterase Urine 2+ (Negative); Nitrate Urine Negative (Negative); Protein Urine Neg (Negative); Specific Gravity, Urine 1.015 (1.005-1.030); Urine Appearance Cloudy (CLEAR); Urine Color Yellow (Yellow); Urobilinogen Urine Norm (Negative); pH Urine 6 (5-7)
[2020-03-08 23:22] LABS: Add Urine Culture? Yes; Bacteria Urine 4+; Squamous Epithelial Cell Urine 0-4 (0-5); WBC Urine TOO NUMEROUS TO CNT /hpf (0-5)
[2020-03-08 23:24] LABS: INR 1.09 (0.8-1.2)
[2020-03-09] VITALS (10 sets, daily range): BP systolic 98–196; BP diastolic 62–98; PULSE 53–99; RESP 16–31; TEMP 36.3–37.4; O2SAT 93–100
[2020-03-09] MEDS: acetaminophen 500 mg Tablet 1000 MG PO (00:09)
[2020-03-09] MEDS: cefTRIAXone 1,000 MG in sodium chloride 0.9% (plus) 50 ML 100 MG IV ×2 (00:10→19:34)
[2020-03-09 00:40] LABS: Troponin 5 2HR 25.66 ng/L (0-15)
[2020-03-09 00:42] LABS: Troponin 5 2HR Delta -11.34 ABS# (0-10)
--- NOTE | 2020-03-09 01:38 | PM.HP ---
Providers/Chief Complaint Primary Care Provider: Valencia Laureano DO Chief Complaint: WEAKNESS History of Present Illness Cali Turner is a 64 year old male who presented to the emergency room with a complaint of not been able to get up off the floor. In talking with him, he has not felt well for about a month. Complains of being weak and tired a lot. Some days are better than others. Nothing really specific otherwise. He fell down today because his legs seem to give out from him being weak and he was not able to get up prompting the visit to the emergency room. He denied any history of any known fevers. No nausea or vomiting. He has chronic constipation but denies any diarrhea. He does regular self catheterizations. On arrival here he was afebrile and vital signs were otherwise stable. Later on he was feeling quite cold and temperature was rechecked and he was noted to be febrile. Urinalysis ended up revealing evidence of probable infection. Laboratory abnormalities revealed an elevated white count but he has not been hypotensive or particularly tachycardic. He does have some increase in BUN and creatinine from previous values. Cardiac enzymes are normal. He is being admitted for further evaluation and treatment. He has a history of pansensitive E. coli in his urine and September of this year. No known sick contacts. Review of Systems Const: Reports: fever(s), chills, fatigue and malaise; Denies: change in appetite Eyes: Denies: change in vision ENMT: Denies: throat pain, dry mouth or nasal congestion Card: Denies: chest pain, palpitations or edema Resp: Denies: dyspnea, productive cough or non-productive cough GI: Reports: constipation; Denies: abdominal pain, nausea, vomiting or diarrhea : Reports: other (Chronic self-catheterization) Musc: Reports: back pain; Denies: joint redness Skin/Breast: Denies: rash or pruritus Neuro: Reports: weakness in extremities; Denies: headache(s), numbness in extremities or dizziness Psych: Denies: anxiety or depression Henry/Lymph: Denies: easy bruising or easy bleeding Medications/Allergies Home Medications Medication Instructions Recorded Confirmed Last Taken Type aspirin 81 mg tablet,delayed 81 mg PO ONCE 09/04/19 12/24/19 Unknown History release clonidine HCl 0.1 mg tablet 0.1 mg PO BID PRN tab 10/24/19 12/24/19 Unknown History amlodipine 5 mg tablet 5 mg PO ONCE PRN tab 11/06/19 12/24/19 Unknown History fludrocortisone 0.1 mg tablet 0.1 mg PO DAILY PRN 11/06/19 12/24/19 Unknown History amiodarone 200 mg tablet 200 mg PO DAILY #90 tab 11/28/19 12/24/19 Unknown Rx tizanidine 2 mg tablet 2 mg PO TID PRN #90 tab 12/10/19 12/24/19 Unknown Rx docusate sodium 100 mg capsule 100 mg PO TID #90 cap 01/07/20 Unknown Rx potassium citrate 10 mEq (1,080 10 meq PO DAILY #30 tab 01/07/20 Unknown Rx mg) tablet,extended release pantoprazole 40 mg tablet,delayed 40 mg PO BID #60 tab 01/27/20 Unknown Rx release ascorbic acid (vitamin C) 1,000 mg 1 gm PO BID #60 tab 02/09/20 Unknown Rx tablet methenamine hippurate 1 gram tablet 1 gm PO BID #60 tab 02/09/20 Unknown Rx hydrocodone 7.5 mg-acetaminophen 1 tab PO TID PRN 7 Days #21 tab 02/24/20 Unknown Rx 325 mg tablet rosuvastatin 10 mg tablet 10 mg PO DAILY #6 tab 02/24/20 Unknown Rx Allergies Allergy/AdvReac Type Severity Reaction Status Date / Time No Known Allergies Allergy Verified 12/10/19 13:13 PFSH Acute PFSH: Medical History (Updated 03/09/20 @ 02:56 by Candace Michael MD) Aortic embolism or thrombosis Atherosclerosis of coronary artery of [place] heart with stable angina pectoris Chronic idiopathic constipation CKD (chronic kidney disease), stage III DDD (degenerative disc disease), lumbar Follows with neurosurgery Diastolic CHF Dyslipidemia GERD (gastroesophageal reflux disease) Hypertension Nocturnal enuresis Perforated gastric ulcer PVC (premature ventricular contraction) 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, on chronic amiodorone therapy Recurrent UTI Urinary retention Surgical History (Updated 03/09/20 @ 02:56 by Candace Michael MD) H/O esophagogastroduodenoscopy H/O exploratory laparotomy History of colonoscopy with polypectomy History of coronary artery stent placement X1 around 2018 in [place] History of heart bypass surgery 2 vessels at [facility] in [place] History of incisional hernia repair History of open heart surgery History of tonsillectomy S/P tonsillectomy and adenoidectomy Status post colonoscopy 2019 Family History Other CAD (coronary artery disease) Cancer Hypertension Social History Smoking and tobacco status: current every day smoker cigars Cigar details: 1 CIGAR EVERY 3 DAYS and smokeless tobacco Smokeless tobacco user: chewing tobacco Smokeless tobacco details: 1 CAN EVERY 2-3 DAYS Alcohol intake: never Caregiver/support person: No Lives independently: No Household members: family Marital status: Single Current occupational status: disabled History of recent travel: No Current gender identity: Male Vitals/I&O/Wt Last Vital Signs Temp 98.3 F 03/08/20 21:28 Pulse 99 03/09/20 00:00 Resp 31 H 03/09/20 00:00 BP 179/98 03/09/20 00:00 Pulse Ox 98 03/09/20 00:00 03/08/20 03/08/20 03/09/20 14:59 22:59 06:59 Intake Total 1000 / 1000 Balance 1000 / 1000 Weight last 48 hrs Weight 90.718 kg Physical Exam Const: OTHER: Alert, oriented x3, cooperative HENMT: OTHER: Normocephalic atraumatic, moist mucus membranes, no oral pharyngeal erythema noted Eye: OTHER: Pupils equally round and reactive to light Neck/C-Spine: OTHER: Supple Resp: OTHER: Clear to auscultation bilaterally, no rales, rhonchi or wheezes noted, no accessory muscle use noted Cardio: OTHER: Regular rate and rhythm GI: OTHER: Abdomen soft, nontender, ventral hernia noted predominantly on the left of old midline scar, positive bowel sounds : OTHER: Dey catheter in place Extremity: NARRATIVE EXTREMITY EXAM: Trace edema in the lower extremities Neuro: OTHER: Face symmetric, speech clear, moves all extremities Psych: OTHER: Normal affect Skin: OTHER: Skin dry, no acute rashes noted Urinary Catheter Management^: Dey: Cath Placed During This Visit: yes Reason for Continuing Indwelling Catheter: Acute Urinary Retention or Obstruction Urinary Catheter Date of Insertion: 03/08/20 Urinary Catheter Time of Insertion: 23:04 Data : 03/08/20 21:42 03/08/20 21:42 Other Labs: Laboratory Tests 03/08/20 21:42 Magnesium 2.1 Lipase 15 TSH 0.53 Liver Function 03/08/20 Range/Units 21:42 Total Bilirubin 0.7 (0.15-1.2) mg/dL AST 20 (0-40) U/L ALT 18 (0-41) U/L Alkaline Phosphatase 74 (40-130) IU/L Albumin 4.2 (3.5-5.2) g/dL Urine 03/08/20 Range/Units 22:55 Urine Color Yellow (Yellow) Urine Appearance Cloudy (CLEAR) Urine pH 6 (5-7) Ur Specific [place] 1.015 (1.005-1.030) Urine Protein Neg (Negative) Urine Glucose (UA) Norm (Normal) Micro: Microbiology 03/08/20 00:14 Blood Culture - Preliminary Blood SPECIMEN COLLECTED 03/08/20 00:13 Blood Culture - Preliminary Blood SPECIMEN COLLECTED A&P Assessment and plan (1) Sepsis: As evidenced by fever, leukocytosis, generalized weakness and acute kidney injury in the setting of urine infection Status: Acute Qualifiers: Sepsis type: sepsis due to unspecified organism Sepsis acute organ dysfunction status: without acute organ dysfunction Qualified Code(s): A41.9 - Sepsis, unspecified organism (2) UTI (urinary tract infection): Inpatient with chronic self-catheterization Status: Acute Qualifiers: Urinary tract infection type: acute cystitis Hematuria presence: without hematuria Qualified Code(s): N30.00 - Acute cystitis without hematuria (3) Acute kidney injury: in chronic kidney disease stage III Status: Acute (4) Weakness: Status: Acute (5) Intermittent self-catheterization of bladder: Status: Deleted (6) Self-catheterizes urinary bladder: Due to chronic urinary retention Status: Chronic Additional A&P Information History of hypertension as well as hypotension with several as needed medications at home (several notes indicate labile blood pressures), hyperlipidemia, chronic diastolic CHF and coronary artery disease Nicotine dependence Chronic pain on chronic narcotics in the form of hydrocodone Inpatient admission Continue Rocephin Dey catheter placed in the emergency room, will continue for now given self-catheterization needs/infection Follow-up pending urine culture Blood cultures were collected in the emergency room IV fluids Continue serial cardiac enzymes that were ordered in the ER Telemetry monitoring I have continued home amiodarone but held or not yet addressed several other medications presently until we get clarified. He has specific guidelines for when he takes amlodpine (>160-180) and clonidine (>180-200). Fluorinef he takes if needed for low blood pressure. Recheck laboratory studies in the morning PT evaluation Anticipate discharge back home when medically stable Supportive care otherwise Full code Plans discussed with patient and he was given an opportunity to ask questions Attestations Medical Necessity Statement*: Anticipated stay greater than 2 midnights in a patient with recurrent urinary tract infection currently associated with findings of sepsis as indicated. Given his inability to stand and care for himself today, combined with history of labile pressures and comorbid medical conditions, not currently safe for outpatient management attempts. Plans are as noted. Coding Level of Care Code Acute Worker'S Compensation Claims Examiner for Nena Fwd Diagnoses Sepsis A41.9 Sepsis type: sepsis due to unspecified organism Sepsis acute organ dysfunction status: without acute organ dysfunction UTI (urinary tract infection) N30.00 Urinary tract infection type: acute cystitis Hematuria presence: without hematuria Acute kidney injury N17.9 Weakness R53.1 Intermittent self-catheterization of bladder Z78.9 Self-catheterizes urinary bladder Z78.9
[2020-03-09] MEDS: enoxaparin 40 mg/0.4 mL Syringe SUBCUT (03:38)
--- NOTE | 2020-03-09 03:41 | PC.NURSE ---
During patient admissions there are a few discrepancies between what patient voices as to what patient has on his problem care list for past medical history.
[2020-03-09 05:02] LABS: Basophils % 0.2 %; Hematocrit 40.6 % (42.0-52.0); Hemoglobin 12.8 g/dL (11.7-16.6); Lymphocytes # 1.8 10^3/uL (0.8-4.8); Lymphocytes % 10.5 %; Mean Corpuscular HGB Conc 31.5 g/dL (30.0-36.0); Mean Corpuscular Hemoglobin 30.7 pg (28.0-34.0); Mean Corpuscular Volume 97.4 fL (80-94); Mean Platelet Volume 10.6 fL (7.4-10.4); Monocytes # 1.5 10^3/uL (0.2-0.9); Monocytes % 8.7 %; Nucleated Red Blood Cells % 0 %; Platelet Count 158 10^3/cmm (130-400); Red Blood Count 4.17 10^6/uL (4.1-5.3); Red Cell Distribution Width 13.3 % (12.1-15.1); White Blood Count 17.5 10^3/uL (4.0-10.0)
[2020-03-09 05:21] LABS: Anion Gap 14.9 (5-19); Blood Urea Nitrogen 18 mg/dL (8-23); Calcium 8.4 mg/dL (8.5-10.5); Carbon Dioxide 21 mmol/L (22-29); Chloride 101 mmol/L (98-107); Glomerular Filtration Rate 55.8 mL/min (90-130); Glucose 131 mg/dL (65-115); Osmolality Calculated 274 mOsm/kg (285-295); Potassium 3.9 mmol/L (3.5-5.1); Sodium 133 mmol/L (136-145)
[2020-03-09] MEDS: docusate sodium 100 mg Capsule PO ×2 (08:26→17:34)
[2020-03-09] MEDS: amiodarone 200 mg Tablet PO (08:26)
[2020-03-09] MEDS: pantoprazole DR 40 mg Tablet PO ×2 (08:26→17:34)
[2020-03-09] MEDS: aspirin 81 mg EC Tablet PO (08:27)
--- NOTE | 2020-03-09 11:25 | PC.CHAP ---
Pastoral Care Encounter/Spiritual Assessment Type of Contact [] Declined wide piece goods inspector visit [] Patient/Family/Request visit [] Outpatient visit [] Follow-up visit [] Physician referral [] Code/Alert [x] Routine visit [] Staff referral [] Actively dying [] Patient sleeping [] Family support [] [] Out of room [] Palliative care [] [x] Receiving care in room [] Pre-surgical visit [] Trauma [] Long length of stay [] ICU visit [x] Other: not able to communicate Relational/Emotional Strength [] Patient feels connected with others/family/visitors/staff [x] Distress [] Loneliness/isolation [] Abandonment Spirituality of Patient [] Person of Kaitlyn [] Attends Congregational of their Kaitlyn [] Believes in Prayer [] Reads Bible or Voodoo materials [] There are Spiritual issues to be addressed It Instructor Interventions [] Prayer [] Active listening [] Non-anxious presence [] Spiritual/emotional support [] Crisis/trauma care [] Spiritual counseling [] Bereavement support [] Provided bereavement packet [] Provided Bible/devotional materials [] Provided toy/stuffed animal, coloring book to patient or family member [] Provided Communion [] Anointing/[place] [] Salvation [] Completed spiritual assessment [] Other: Impact on Illness or Injury [] Angry [] Fearful [] Anxious [] Often cries [] Exhaustion [] Unable to work [] Unable to attend muslim [] Unable to walk/stand [] Unable to read [] Unable to drive [] Unable to eat/drink [] Unable to sleep [] Unable to be with family [] Patient intubated [] Other: Summary not able to communicate Time spent with patient 10 mins
--- NOTE | 2020-03-09 12:11 | PM.PN ---
Subjective Subjective: Interval history: And overnight. H&P and labs noted. On examination today lying comfortably in bed. Today morning with physical therapy patient had a drop in orthostatic on try to stand up. On talking with patient he states he is been having low blood pressures at home as well with blood pressures going down to as low as 60 mmHg. He knows he can take fludrocortisone at home but has not been taking it because with that his blood pressures go very high. Labs and vitals noted. Vitals/I&O/Wt Last Vital Signs Temp 98.4 F 03/09/20 11:40 Pulse 77 03/09/20 11:40 Resp 18 03/09/20 11:40 BP 115/72 03/09/20 11:40 Pulse Ox 94 03/09/20 11:40 03/08/20 03/09/20 03/09/20 22:59 06:59 14:59 Intake Total 1290 / 1290 240 / 240 Output Total 650 / 650 Balance 640 / 640 240 / 240 Weight last 48 hrs Weight 90.718 kg Physical Exam Narrative: EXAM NARRATIVE: General: No acute distress, AO x3, dehydrated HEENT: PERRLA, pupils bilaterally equal and reactive Chest: Normal vesicular breath sounds, no added sounds, equal good air entry bilaterally CVS: S1-S2 regular, no murmurs, no tachycardia, no gallops, no rubs Abdomen: Soft, nontender, no organomegaly, bowel sounds present, old midline scar, ventral hernia noted onto the left of the scar Neuro: No focal deficits, no facial deformity, AO x3, power 5/5 in all limbs Urinary Catheter Management^: Dey: Cath Placed During This Visit: yes Reason for Continuing Indwelling Catheter: Acute Urinary Retention or Obstruction Urinary Catheter Date of Insertion: 03/08/20 Urinary Catheter Time of Insertion: 23:04 Data : 03/09/20 04:15 03/09/20 04:15 Micro: Microbiology 03/08/20 00:14 Blood Culture - Preliminary Blood SPECIMEN COLLECTED 03/08/20 00:13 Blood Culture - Preliminary Blood SPECIMEN COLLECTED A&P Assessment and plan (1) Falls: Status: Acute (2) Sepsis: As evidenced by fever, leukocytosis, generalized weakness and acute kidney injury in the setting of urine infection Status: Acute Qualifiers: Sepsis acute organ dysfunction status: without acute organ dysfunction Sepsis type: sepsis due to unspecified organism Qualified Code(s): A41.9 - Sepsis, unspecified organism (3) UTI (urinary tract infection): Inpatient with chronic self-catheterization Status: Acute Qualifiers: Hematuria presence: without hematuria Urinary tract infection type: acute cystitis Qualified Code(s): N30.00 - Acute cystitis without hematuria (4) Acute kidney injury: in chronic kidney disease stage III Status: Acute (5) Weakness: Status: Acute (6) Self-catheterizes urinary bladder: Due to chronic urinary retention Status: Chronic (7) Labile blood pressure: Status: Acute (8) CKD (chronic kidney disease), stage III: Status: Chronic (9) Diastolic CHF: Status: Chronic (10) Aortic embolism or thrombosis: Status: Chronic (11) Nicotine dependence, cigarettes, with unspecified nicotine-induced disorders: Status: Chronic (12) Orthostatic hypotension: Status: Acute Additional A&P Information 64-year-old gentleman past medical history of orthostatic hypotension, hyperlipidemia, hypertension, labile blood pressures, diastolic heart failure, CAD, history of self-catheterization presented because of recurrent falls. Recurrent falls: Most likely because of labile blood pressures and positive orthostatic blood pressures. Could related to chronic disease but cannot rule out due to sepsis. Start patient on normal saline 50 cc/h. Monitor for fluid overload. For now we will start patient on home dose of fludrocortisone 0. 1 mg every day in the afternoon. We will try to keep systolic blood pressure between 140 to 160 mmHg on lying down. Sepsis: Due to UTI. Present on admission. In past patient's urine cultures have been positive for E. coli and Enterobacter which has been pansensitive. Continue with ceftriaxone for now. Will de-escalate antibiotics as per the result of blood cultures and urine cultures. Labile blood pressures with hypotension and orthostatic hypotension: He has specific guidelines as per his stack supervisor as an outpatient. He supposed to take amlodipine whenever his blood pressure goes more than 160. Clonidine male with a blood pressure goes over 180. He supposed to take Florinef 0.1 mg once daily as needed for for low blood pressures. But he is not aware how low the blood pressure should be. He has not been taking Florinef at home. For now we will start patient on amlodipine 2.5 mg twice daily morning and evening along with Florinef 0.1 mg in the afternoon. We will continue clonidine 0.1 mg 3 times daily as needed for systolic blood pressure more than 200. Compression stockings. Regular diet. Nicotine patch for nicotine dependence. Diastolic heart failure: Echocardiogram done in 2018 shows a normal EF with grade 3 diastolic dysfunction. Patient is euvolemic right now. We will continue to monitor for fluid overload. PT/OT evaluation. Regular diet. Full code. Lovenox for DVT prophylaxis Attestations Medical Necessity Statement*: Labile blood pressures, sepsis, orthostatic hypotension Time Spent in Patient Care: Greater than 35 minutes (>than 50% of time spent in counselling and/or direct pt care on unit). Coding Level of Care Code Acute Criminal Intelligence Specialist for Chg Fwd Diagnoses Falls [id number] Sepsis A41.9 Sepsis acute organ dysfunction status: without acute organ dysfunction Sepsis type: sepsis due to unspecified organism UTI (urinary tract infection) N30.00 Hematuria presence: without hematuria Urinary tract infection type: acute cystitis Acute kidney injury N17.9 Weakness R53.1 Self-catheterizes urinary bladder Z78.9 Labile blood pressure R09.89 CKD (chronic kidney disease), stage III N18.3 Diastolic CHF I50.30 Aortic embolism or thrombosis I74.10 Nicotine dependence, cigarettes, with unspecified nicotine-induced disorders F17.219 Orthostatic hypotension I95.1
[2020-03-09] MEDS: sodium chloride 0.9% 1,000 ML 100 ML IV (13:29)
[2020-03-09] MEDS: fludrocortisone 0.1 mg Tablet PO (13:36)
[2020-03-09 14:18] LABS: NT Pro B Type Natriuretic Pept 2740 pg/mL (0-125)
[2020-03-09] MEDS: amlodipine 5 mg Tablet 2.5 MG PO (17:34)
[2020-03-09] MEDS: ascorbic acid 500 mg Tablet 1000 MG PO (17:34)
--- NOTE | 2020-03-09 18:18 | PC.NURSE ---
Patient resting in bed in semi fowlers position. Patient is complaint with cares and cooperative with staff.
--- NOTE | 2020-03-09 20:57 | PC.NURSE ---
Introduced self to patient. Explained to patient that this RN would be assuming care after midnight. Patient verbalized understanding. Denies needs or discomforts at this time. No distress observed.
--- NOTE | 2020-03-09 21:09 | PC.NURSE ---
Patient does not have any complaints at this time. Will monitor.
--- NOTE | 2020-03-09 23:18 | PC.NURSE ---
Patient is currently watching TV and has no complaints. Will monitor.
--- NOTE | 2020-03-09 23:27 | PC.NURSE ---
Patient awake and watching tv. Offered patient snack. Patient agreeable to ice cream which was provided. Patient expressed great thanks. No distress observed.
[2020-03-10] VITALS (7 sets, daily range): BP systolic 78–167; BP diastolic 45–103; PULSE 63–71; RESP 18–30; TEMP 36.5–37.1; O2SAT 94–97
[2020-03-10 00:36] LABS: Troponin 5 6HR 29.01 ng/L (0-15)
[2020-03-10 00:37] LABS: Troponin 5 6HR Delta -7.99 ng/L (0-12)
[2020-03-10] MEDS: enoxaparin 40 mg/0.4 mL Syringe SUBCUT (03:17)
[2020-03-10 04:41] LABS: Basophils % 0.2 %; Eosinophils # 0.1 10^3/uL (0.0-0.8); Eosinophils % 0.6 %; Hematocrit 38.5 % (42.0-52.0); Hemoglobin 12.3 g/dL (11.7-16.6); Lymphocytes # 2.3 10^3/uL (0.8-4.8); Lymphocytes % 19.9 %; Mean Corpuscular HGB Conc 31.9 g/dL (30.0-36.0); Mean Corpuscular Hemoglobin 31.1 pg (28.0-34.0); Mean Corpuscular Volume 97.2 fL (80-94); Mean Platelet Volume 10.7 fL (7.4-10.4); Monocytes % 8.1 %; Neutrophils # 8.3 10^3/uL (1.8-7.7); Neutrophils % 70.6 %; Nucleated Red Blood Cells % 0 %; Platelet Count 144 10^3/cmm (130-400); Red Blood Count 3.96 10^6/uL (4.1-5.3); Red Cell Distribution Width 13.2 % (12.1-15.1); White Blood Count 11.7 10^3/uL (4.0-10.0)
[2020-03-10 05:08] LABS: Alanine Aminotransferase 12 U/L (0-41); Albumin Level 3.4 g/dL (3.5-5.2); Alkaline Phosphatase 83 IU/L (40-130); Anion Gap 14.8 (5-19); Aspartate Amino Transferase 11 U/L (0-40); Blood Urea Nitrogen 15 mg/dL (8-23); Calcium 8.6 mg/dL (8.5-10.5); Carbon Dioxide 22 mmol/L (22-29); Chloride 102 mmol/L (98-107); Globulin 2.8 g/dL (1.3-4.6); Glomerular Filtration Rate 85.2 mL/min (90-130); Glucose 112 mg/dL (65-115); Osmolality Calculated 277 mOsm/kg (285-295); Potassium 3.8 mmol/L (3.5-5.1); Sodium 135 mmol/L (136-145); Total Bilirubin 0.3 mg/dL (0.15-1.2); Total Protein 6.2 g/dL (6.6-8.7)
--- NOTE | 2020-03-10 08:56 | PM.PN ---
Subjective Subjective: Interval history: No acute events overnight. Patient denies of any nausea, vomiting, headache. Patient has remained afebrile. He denies of having any dizziness now. Today morning he walked from his room all the way down the liu without having any dizziness but did have some mild lightheadedness. He was very steady on his feet. Patient did need PT verbal cues to help in walking. Vitals/I&O/Wt Last Vital Signs Temp 97.9 F 03/10/20 08:00 Pulse 67 03/10/20 08:00 Resp 30 H 03/10/20 08:00 BP 100/62 03/10/20 08:00 Pulse Ox 96 03/10/20 08:00 03/09/20 03/10/20 03/10/20 22:59 06:59 14:59 Intake Total 1360 / 1840 1500 / 3340 Output Total 1350 / 2450 2100 / 4550 Balance 10 / -610 -600 / -1210 Weight last 48 hrs Weight 90.718 kg Physical Exam Narrative: EXAM NARRATIVE: General: No acute distress, AO x3, dehydrated HEENT: PERRLA, pupils bilaterally equal and reactive Chest: Normal vesicular breath sounds, no added sounds, equal good air entry bilaterally CVS: S1-S2 regular, no murmurs, no tachycardia, no gallops, no rubs Abdomen: Soft, nontender, no organomegaly, bowel sounds present, old midline scar, ventral hernia noted onto the left of the scar Neuro: No focal deficits, no facial deformity, AO x3, power 5/5 in all limbs Urinary Catheter Management^: Dey: Cath Placed During This Visit: yes Reason for Continuing Indwelling Catheter: Acute Urinary Retention or Obstruction Urinary Catheter Date of Insertion: 03/08/20 Urinary Catheter Time of Insertion: 23:04 Data : 03/10/20 03:39 03/10/20 03:39 Micro: Microbiology 03/08/20 00:14 Blood Culture - Preliminary Blood NEGATIVE TO DATE 03/08/20 00:13 Blood Culture - Preliminary Blood NEGATIVE TO DATE A&P Assessment and plan (1) Falls: Status: Acute (2) Sepsis: As evidenced by fever, leukocytosis, generalized weakness and acute kidney injury in the setting of urine infection Status: Acute Qualifiers: Sepsis acute organ dysfunction status: without acute organ dysfunction Sepsis type: sepsis due to unspecified organism Qualified Code(s): A41.9 - Sepsis, unspecified organism (3) UTI (urinary tract infection): Inpatient with chronic self-catheterization Status: Acute Qualifiers: Hematuria presence: without hematuria Urinary tract infection type: acute cystitis Qualified Code(s): N30.00 - Acute cystitis without hematuria (4) Acute kidney injury: in chronic kidney disease stage III Status: Acute (5) Weakness: Status: Acute (6) Self-catheterizes urinary bladder: Due to chronic urinary retention Status: Chronic (7) Labile blood pressure: Status: Acute (8) CKD (chronic kidney disease), stage III: Status: Chronic (9) Diastolic CHF: Status: Chronic (10) Aortic embolism or thrombosis: Status: Chronic (11) Nicotine dependence, cigarettes, with unspecified nicotine-induced disorders: Status: Chronic (12) Orthostatic hypotension: Status: Acute Additional A&P Information 64-year-old gentleman past medical history of orthostatic hypotension, hyperlipidemia, hypertension, labile blood pressures, diastolic heart failure, CAD, history of self-catheterization presented because of recurrent falls. Labile blood pressures with hypotension and orthostatic hypotension: He has specific guidelines as per his sped teacher as an outpatient. He supposed to take amlodipine whenever his blood pressure goes more than 160. Clonidine male with a blood pressure goes over 180. He supposed to take Florinef 0.1 mg once daily as needed for for low blood pressures. But he is not aware how low the blood pressure should be. He has not been taking Florinef at home. Continue with fluids at 75 cc/h. No signs of fluid overload. Continue with fludrocortisone 0.1 mg every day along with amlodipine 2.5 mg twice daily. Orthostatic blood pressure every shift. We will try to keep systolic blood pressure between 140 to 160 mmHg on lying down. We will continue clonidine 0.1 mg 3 times daily as needed for systolic blood pressure more than 200 mmHg. Compression stockings. Regular diet. Patient is overall 1500 cc negative yesterday. DC Dey catheter. Continue IV fluids we will try to give him a at least equal input and output today. Recurrent falls: Most likely because of labile blood pressures and positive orthostatic blood pressures. Could related to chronic disease but cannot rule out due to sepsis. PT/OT evaluation. Asked patient for possible SNF placement given his severe deconditioning and worsening orthostatic pressures. He states over adamantly that he does not want to go to SNF but would consider home health. Sepsis: Due to UTI. Present on admission. In past patient's urine cultures have been positive for E. coli and Enterobacter which has been pansensitive. Continue with ceftriaxone for now. Will de-escalate antibiotics as per the result of blood cultures and urine cultures. Nicotine patch for nicotine dependence. Diastolic heart failure: Echocardiogram done in 2018 shows a normal EF with grade 3 diastolic dysfunction. Patient is euvolemic right now. We will continue to monitor for fluid overload. PT/OT evaluation. Regular diet. Full code. Lovenox for DVT prophylaxis Attestations Medical Necessity Statement*: Orthostatic blood pressures, labile blood pressures, recurrent falls, sepsis Time Spent in Patient Care: Greater than 35 minutes (>than 50% of time spent in counselling and/or direct pt care on unit). Coding Level of Care Code Acute Insurance Claims Processor for [facility] Fwd Diagnoses Falls [id number].XXXA Sepsis A41.9 Sepsis acute organ dysfunction status: without acute organ dysfunction Sepsis type: sepsis due to unspecified organism UTI (urinary tract infection) N30.00 Hematuria presence: without hematuria Urinary tract infection type: acute cystitis Acute kidney injury N17.9 Weakness R53.1 Self-catheterizes urinary bladder Z78.9 Labile blood pressure R09.89 CKD (chronic kidney disease), stage III N18.3 Diastolic CHF I50.30 Aortic embolism or thrombosis I74.10 Nicotine dependence, cigarettes, with unspecified nicotine-induced disorders F17.219 Orthostatic hypotension I95.1
--- NOTE | 2020-03-10 08:57 | CT_ITS ---
WS: [id number] CT ABDOMEN AND PELVIS NONCONTRAST HISTORY: r/o obstructive uropathy TECHNIQUE: Imaging performed through the abdomen and pelvis. Coronal and sagittal reformats are submi tted. All CT scans at [facility] use at least one of these dose optimization techniques: automated exposure control; mA and/or kV adjustment per patient size (includes targeted exams where d ose is matched to clinical indication); or iterative reconstruction. DLP: 1293.46 mGy.cm COMPARISON: 01/29/2019 Lower thorax: Linear atelectasis LEFT lower lung. Cardiac chambers are slightly enlarged. No hiatal h ernia. Liver: Mild hepatic steatosis. No bile duct dilatation or mass. Gallbladder: Gallbladder is not identified. No history of cholecystectomy has been provided. Pancreas: Normal. Spleen: Normal. Adrenal glands: Normal. Right kidney: Perinephric stranding is moderate. 2.7 mm cyst upper pole. No obstruction. Left kidney: Moderate perinephric stranding with no obstruction or solid mass. No ureteral calcificat ion. Aorta: Ectatic aorta with very mild ectasia and dilatation. No free fluid, intraperitoneal air or significant lymphadenopathy. GI tract: Diffuse constipation. Normal appendix. Abdominal wall: Abdominal wall hernia with closely associated small bowel loops. No obstruction. Smal l amount of air in the RIGHT abdominal wall is probably an injection site. Pelvis: Mild thickening of the urinary bladder wall and a small amount of air in the bladder. No free fluid or adenopathy. Osseous structures: Unremarkable. CT/CT abdomen pelvis wo con [id number] IMPRESSION: 1. No renal calcifications or obstruction. 2. Moderate perinephric stranding can be seen with urinary tract infection or chronic renal disease. 3. Negative appendix. 4. Diffuse mild bladder wall thickening and a small amount of air. Air can be related to recent catheterization or cystitis.
--- NOTE | 2020-03-10 09:41 | PC.CHAP ---
Pastoral Care Encounter/Spiritual Assessment Type of Contact [] Declined printer operator visit [] Patient/Family/Request visit [] Outpatient visit [] Follow-up visit [] Physician referral [] Code/Alert [x] Routine visit [] Staff referral [] Actively dying [] Patient sleeping [] Family support [] [] Out of room [] Palliative care [] [] Receiving care in room [] Pre-surgical visit [] Trauma [] Long length of stay [] ICU visit [] Other: Relational/Emotional Strength [] Patient feels connected with others/family/visitors/staff [] Distress [] Loneliness/isolation [] Abandonment Spirituality of Patient [] Person of Kaitlyn [] Attends Oriental Orthodox of their Kaitlyn [] Believes in Prayer [] Reads Bible or Episcopal materials [] There are Spiritual issues to be addressed Director Educational Radio Interventions [x] Prayer [x] Active listening [x] Non-anxious presence [x] Spiritual/emotional support [] Crisis/trauma care [] Spiritual counseling [] Bereavement support [] Provided bereavement packet [] Provided Bible/devotional materials [] Provided toy/stuffed animal, coloring book to patient or family member [] Provided Communion [] Anointing/[place] [] Salvation [x] Completed spiritual assessment [] Other: Impact on Illness or Injury [] Angry [] Fearful [] Anxious [] Often cries [] Exhaustion [] Unable to work [] Unable to attend shinto [] Unable to walk/stand [] Unable to read [] Unable to drive [] Unable to eat/drink [] Unable to sleep [] Unable to be with family [] Patient intubated [] Other: Summary Patient feeling stronger Time spent with patient 10 min
[2020-03-10] MEDS: pantoprazole DR 40 mg Tablet PO ×2 (09:51→17:16)
[2020-03-10] MEDS: aspirin 81 mg EC Tablet PO (09:51)
[2020-03-10] MEDS: docusate sodium 100 mg Capsule PO ×2 (09:51→17:15)
[2020-03-10] MEDS: ascorbic acid 500 mg Tablet 1000 MG PO ×2 (09:51→17:16)
[2020-03-10] MEDS: atorvastatin 40 mg Tablet PO (09:51)
[2020-03-10] MEDS: nicotine 14 mg Patch 1 PATCH TRANSDERMA (09:52)
[2020-03-10] MEDS: amiodarone 200 mg Tablet PO (09:53)
[2020-03-10] MEDS: amlodipine 5 mg Tablet 2.5 MG PO ×2 (09:56→17:16)
[2020-03-10] MEDS: fludrocortisone 0.1 mg Tablet PO (09:56)
--- NOTE | 2020-03-10 15:21 | PC.RESP ---
Smoking Cessation information and a schedule of classes sent to patient.
--- NOTE | 2020-03-10 16:52 | PC.NURSE ---
pt performed in and out cath independently.500 cc clear yellow urine obtained
[2020-03-10] MEDS: sodium chloride 0.9% 1,000 ML 75 ML IV (17:14)
--- NOTE | 2020-03-10 19:45 | PC.NURSE ---
Asked patient if he wanted a bath. The patient stated No, I don't stink .
--- NOTE | 2020-03-10 19:52 | PC.NURSE ---
Received report from AMA Sainz. Patient resting in bed watching television. Patient performs self catheterization. No distress observed. Patient reports feeling constipated and has chronic constipation. Patient stated, the stool softeners just are not working. Offered and provided 120ml of prune juice. Patient did not it warmed.
[2020-03-10] MEDS: cefTRIAXone 1,000 MG in sodium chloride 0.9% (plus) 50 ML 100 MG IV (20:17)
[2020-03-11] VITALS (8 sets, daily range): BP systolic 122–184; BP diastolic 70–96; PULSE 65–69; RESP 13–20; TEMP 36.4–36.8; O2SAT 93–96
[2020-03-11] MEDS: enoxaparin 40 mg/0.4 mL Syringe SUBCUT (03:14)
[2020-03-11 03:59] LABS: Basophils % 0.3 %; Eosinophils # 0.1 10^3/uL (0.0-0.8); Eosinophils % 1.2 %; Hematocrit 39.1 % (42.0-52.0); Hemoglobin 12.2 g/dL (11.7-16.6); Lymphocytes # 2.1 10^3/uL (0.8-4.8); Lymphocytes % 27.1 %; Mean Corpuscular HGB Conc 31.2 g/dL (30.0-36.0); Mean Corpuscular Volume 99.2 fL (80-94); Mean Platelet Volume 10.8 fL (7.4-10.4); Monocytes # 0.7 10^3/uL (0.2-0.9); Monocytes % 8.8 %; Neutrophils # 4.76 10^3/uL (1.8-7.7); Neutrophils % 62.3 %; Nucleated Red Blood Cells % 0 %; Platelet Count 163 10^3/cmm (130-400); Red Blood Count 3.94 10^6/uL (4.1-5.3); Red Cell Distribution Width 13.2 % (12.1-15.1); White Blood Count 7.6 10^3/uL (4.0-10.0)
[2020-03-11 04:43] LABS: Alanine Aminotransferase 13 U/L (0-41); Albumin Level 3.4 g/dL (3.5-5.2); Alkaline Phosphatase 72 IU/L (40-130); Anion Gap 14.9 (5-19); Aspartate Amino Transferase 13 U/L (0-40); Blood Urea Nitrogen 13 mg/dL (8-23); Calcium 8.8 mg/dL (8.5-10.5); Carbon Dioxide 21 mmol/L (22-29); Chloride 106 mmol/L (98-107); Globulin 2.6 g/dL (1.3-4.6); Glomerular Filtration Rate 85.2 mL/min (90-130); Glucose 99 mg/dL (65-115); Osmolality Calculated 282 mOsm/kg (285-295); Potassium 3.9 mmol/L (3.5-5.1); Sodium 138 mmol/L (136-145); Total Bilirubin 0.2 mg/dL (0.15-1.2)
[2020-03-11] MEDS: sodium chloride 0.9% 1,000 ML 75 ML IV (05:30)
[2020-03-11] MEDS: amlodipine 5 mg Tablet 2.5 MG PO (08:49)
[2020-03-11] MEDS: docusate sodium 100 mg Capsule PO (08:50)
[2020-03-11] MEDS: pantoprazole DR 40 mg Tablet PO (08:50)
[2020-03-11] MEDS: ascorbic acid 500 mg Tablet 1000 MG PO (08:50)
[2020-03-11] MEDS: amiodarone 200 mg Tablet PO (08:50)
[2020-03-11] MEDS: atorvastatin 40 mg Tablet PO (08:50)
[2020-03-11] MEDS: aspirin 81 mg EC Tablet PO (08:50)
[2020-03-11] MEDS: nicotine 14 mg Patch 1 PATCH TRANSDERMA (08:51)
[2020-03-11] MEDS: fludrocortisone 0.1 mg Tablet PO (09:22)
--- NOTE | 2020-03-11 17:20 | P.DS_ITS ---
Discharge Providers Date of Admission: 03/09/20 01:38 Date of Discharge: March 11, 2020 Attending Provider at Admission: Candace Michael MD Attending Provider at Discharge: Silvana Butts MD Primary Care Provider: Valencia Laureano DO Diagnoses at Discharge Discharge Diagnosis (1) Falls: Status: Acute (2) Sepsis: Status: Acute Qualifiers: Sepsis acute organ dysfunction status: without acute organ dysfunction Sepsis type: sepsis due to unspecified organism Qualified Code(s): A41.9 - Sepsis, unspecified organism (3) UTI (urinary tract infection): Status: Acute Qualifiers: Urinary tract infection type: acute cystitis Hematuria presence: without hematuria Qualified Code(s): N30.00 - Acute cystitis without hematuria (4) Acute kidney injury: Status: Acute (5) Weakness: Status: Acute (6) Self-catheterizes urinary bladder: Status: Chronic (7) Labile blood pressure: Status: Acute (8) CKD (chronic kidney disease), stage III: Status: Chronic (9) Diastolic CHF: Status: Chronic (10) Aortic embolism or thrombosis: Status: Chronic (11) Nicotine dependence, cigarettes, with unspecified nicotine-induced disorders: Status: Chronic (12) Orthostatic hypotension: Status: Acute Reason for Visit Reason for Visit: WEAKNESS Physical Exam Urinary Catheter Management^: Dey: Cath Placed During This Visit: yes, but has since been removed by the nurse Reason for Continuing Indwelling Catheter: Acute Urinary Retention or Obstruction Urinary Catheter Date of Insertion: 03/08/20 Urinary Catheter Time of Insertion: 23:04 Date Urinary Catheter Removed: 03/10/20 Time Urinary Catheter Discontinued: 15:00 Discharge Data Data Completed and Pending: Completed Studies During Hospitalization Category Date Time Status CT abdomen pelvis wo con [id number] Rout ine Cat Scan 03/10/20 08:[address] head wo con* 7 0450 Urgent Cat Scan 03/08/20 21:34 Completed XR chest 1V miley ble [id number] Urgent Exams 03/08/20 21:34 Completed Pending at discharge Category Date Time Status Blood Culture Sta t Lab 03/08/20 00:14 Results Labs from last 24 hours 03/11/20 03/11/20 03:19 03:19 WBC 7.6 RBC 3.94 L Hgb 12.2 Hct 39.1 L MCV 99.2 H MCH 31.0 MCHC 31.2 RDW 13.2 Plt Count 163 MPV 10.8 H Neut % (Auto) 62.3 Lymph % (Auto) 27.1 [place] % (Auto) 8.8 Eos % (Auto) 1.2 Baso % (Auto) 0.3 Neut # (Auto) 4.76 Lymph # (Auto) 2.1 [place] # (Auto) 0.7 Eos # (Auto) 0.1 Baso # (Auto) 0.0 Nucleated RBC % (a uto) 0 Nucleated RBCs # 0.0 Sodium 138 Potassium 3.9 Chloride 106 Carbon Dioxide 21 L Anion Gap 14.9 BUN 13 Creatinine 0.9 GFR Calculation 85.2 L Glucose 99 Calculated Osmolal ity 282 L Calcium 8.8 Total Bilirubin 0.2 AST 13 ALT 13 Alkaline Phosphata se 72 Total Protein 6.0 L Albumin 3.4 L Globulin 2.6 Vitals: Last Vital Signs Temp 98.0 F 03/11/20 14:51 Pulse 66 03/11/20 14:51 Resp 18 03/11/20 14:51 BP 180/80 03/11/20 14:51 Pulse Ox 93 03/11/20 14:51 Discharge Plan Discharge Patient Disposition: Home Health Service Condition: Stable Prescriptions: New cefadroxil 500 mg capsule 500 mg PO BID 5 Days Qty: 10 RF: 0 amlodipine 5 mg Tablet 2.5 mg PO BID Qty: 60 RF: 0 Continued aspirin [Aspir-Low] 81 mg tablet,delayed release (DR/EC) 81 mg PO ONCE RF: 0 tizanidine 2 mg tablet 2 mg PO TID PRN (Reason: muscle spasticity) Qty: 90 RF: 1 hydrocodone-acetaminophen 7.5-325 mg tablet 1 tab PO TID PRN (Reason: pain) 7 Days Qty: 21 RF: 0 amiodarone 200 mg tablet 200 mg PO DAILY Qty: 90 RF: 1 docusate sodium [Stool Softener] 100 mg capsule 100 mg PO TID Qty: 90 RF: 1 potassium citrate 10 mEq (1,080 mg) tablet extended release 10 meq PO DAILY Qty: 30 RF: 0 pantoprazole 40 mg tablet,delayed release (DR/EC) 40 mg PO BID Qty: 60 RF: 1 methenamine hippurate 1 gram tablet 1 gm PO BID Qty: 60 RF: 6 ascorbic acid (vitamin C) [Vitamin C] 1,000 mg tablet 1 gm PO BID Qty: 60 RF: 6 rosuvastatin [Crestor] 10 mg tablet 10 mg PO DAILY Qty: 6 RF: 0 Changed fludrocortisone 0.1 mg tablet 0.1 mg PO DAILY Qty: 30 RF: 0 clonidine HCl 0.1 mg tablet 0.1 mg PO BID PRN (Reason: Systolic BP > 180 mmhg) Qty: 0 RF: 0 Discontinued amlodipine 5 mg tablet 5 mg PO ONCE RF: 0 Discharge Orders: Discharge Order (Routine); Ordered 03/11/20 Ordered By: Silvana Butts Referrals: [facility] ([facility]) [Outside] Valencia Laureano DO [Primary Care Provider] - Discharge Diet: Regular Discharge Activity: Resume usual activity Activity Restrictions/Additional Instructions: Continue with fludrocortisone 0.1 mg every day along with amlodipine 2.5 mg twice daily. Check blood pressure twice daily. Keep blood pressure between 140 to 160. Take clonidine 0.1 mg for systolic blood pressure more than 200 mmHg. 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 Screen Worker for [facility] Fwd Diagnoses Falls [id number].[id number] Sepsis A41.9 Sepsis acute organ dysfunction status: without acute organ dysfunction Sepsis type: sepsis due to unspecified organism UTI (urinary tract infection) N30.00 Urinary tract infection type: acute cystitis Hematuria presence: without hematuria Acute kidney injury N17.9 Weakness R53.1 Self-catheterizes urinary bladder Z78.9 Labile blood pressure R09.89 CKD (chronic kidney disease), stage III N18.3 Diastolic CHF I50.30 Aortic embolism or thrombosis I74.10 Nicotine dependence, cigarettes, with unspecified nicotine-induced disorders F17.219 Orthostatic hypotension I95.1
== END 2020-03-11 18:30 | disposition home health service (06) | DRG 872 ==
LOC: ER 03-09 02:00 → MEDSURG 03-09 02:02 → CSU 03-09 14:42
PROVIDERS: Emergency Medicine; Student in an Organized Health Care Education/Training Program; Admitting Provider Hospitalist; PCP Family Medicine; Visit Provider Student in an Organized Health Care Education/Training Program
DX: A41.9 Sepsis, unspecified organism (principal); I13.0 Hypertensive heart and chronic kidney disease with heart failure and stage 1 through stage 4 chronic kidney disease, or unspecified chronic kidney disease; N39.0 Urinary tract infection, site not specified; N17.9 Acute kidney failure, unspecified; I74.10 Embolism and thrombosis of unspecified parts of aorta; I50.32 Chronic diastolic (congestive) heart failure; Z91.81 History of falling; N18.3 Chronic kidney disease, stage 3 (moderate); Z79.82 Long term (current) use of aspirin; K59.09 Other constipation; K21.9 Gastro-esophageal reflux disease without esophagitis; E78.5 Hyperlipidemia, unspecified; K59.04 Chronic idiopathic constipation; F17.290 Nicotine dependence, other tobacco product, uncomplicated
CPT/HCPCS: 12345; 36415; 36416; 51702; 70450; 71045; 74176; 80048; 80053; 80307; 81001; 81003; 82962; 83690; 83735; 83880; 84443; 84484; 85025; 85610; 87040; 87077; 87086; 87186; 90935; 93005; 94640; 96372; 97116; 97161; 97530; 99283; J0696; J1650; J7030

== ENCOUNTER 2020-03-08 21:27 | Emergency (ER) | payer MEDICAID, SELFPAY | END 2020-03-09 02:41 | disposition admitted as inpatient to this hospital (09) | LOC: ER 03-12 02:16 | PROVIDERS: Emergency Provider Emergency Medicine; PCP Family Medicine | DX: A41.9 Sepsis, unspecified organism (principal); N39.0 Urinary tract infection, site not specified; F17.220 Nicotine dependence, chewing tobacco, uncomplicated; N18.3 Chronic kidney disease, stage 3 (moderate); I13.0 Hypertensive heart and chronic kidney disease with heart failure and stage 1 through stage 4 chronic kidney disease, or unspecified chronic kidney disease; I50.30 Unspecified diastolic (congestive) heart failure; E78.5 Hyperlipidemia, unspecified; Z87.440 Personal history of urinary (tract) infections | CPT/HCPCS: 12345; 36415; 36416; 51702; 70450; 71045; 80053; 80307; 81001; 81003; 82962; 83690; 83735; 84443; 84484; 85025; 85610; 87086; 93005; 94640; 96365; 99283; 99285; J0696; J7030 ==

== ENCOUNTER → 2020-03-16 08:53 | Outpatient (BNVA) | payer MEDICAID, SELFPAY | PROVIDERS: PCP Family Medicine; Visit Provider Nurse Practitioner | DX: M54.9 Dorsalgia, unspecified (principal); M54.42 Lumbago with sciatica, left side; F17.220 Nicotine dependence, chewing tobacco, uncomplicated; F17.219 Nicotine dependence, cigarettes, with unspecified nicotine-induced disorders; Z79.891 Long term (current) use of opiate analgesic; Z71.6 Tobacco abuse counseling | CPT/HCPCS: 99214 ==

== ENCOUNTER → 2020-04-08 13:18 | Outpatient (BNVA) | payer MEDICAID, SELFPAY | PROVIDERS: PCP Family Medicine; Visit Provider Anesthesiology | DX: M51.36 Other intervertebral disc degeneration, lumbar region (principal); M54.9 Dorsalgia, unspecified; F17.290 Nicotine dependence, other tobacco product, uncomplicated | CPT/HCPCS: 62323; J1040; J3490 ==

== ENCOUNTER → 2020-04-22 17:28 | Outpatient (BNVA) | payer MEDICAID, SELFPAY | PROVIDERS: PCP Family Medicine; Visit Provider Nurse Practitioner Family | DX: N30.00 Acute cystitis without hematuria (principal) | CPT/HCPCS: 80053; 85025; 87077; 87086; 87186 ==

== ENCOUNTER → 2020-05-11 13:11 | Outpatient (BNVA) | payer MEDICAID, SELFPAY | PROVIDERS: PCP Family Medicine; Visit Provider Anesthesiology | DX: M51.36 Other intervertebral disc degeneration, lumbar region (principal); F17.220 Nicotine dependence, chewing tobacco, uncomplicated; Z79.891 Long term (current) use of opiate analgesic; Z71.6 Tobacco abuse counseling | CPT/HCPCS: 99214 ==

== ENCOUNTER → 2020-05-17 14:13 | Outpatient (BNVA) | payer MEDICAID, SELFPAY | PROVIDERS: PCP Family Medicine; Visit Provider Family Medicine | DX: E78.5 Hyperlipidemia, unspecified (principal) | CPT/HCPCS: 80053; 80061 ==

== ENCOUNTER → 2020-06-24 10:18 | Outpatient (BNVA) | payer MEDICAID, SELFPAY | PROVIDERS: PCP Family Medicine; Visit Provider Nurse Practitioner Family | DX: N30.00 Acute cystitis without hematuria (principal); I95.9 Hypotension, unspecified | CPT/HCPCS: 81003 ==

== ENCOUNTER → 2020-07-13 12:51 | Outpatient (BNVA) | payer MEDICAID, SELFPAY | PROVIDERS: PCP Family Medicine; Visit Provider Anesthesiology | DX: M51.36 Other intervertebral disc degeneration, lumbar region (principal); M54.9 Dorsalgia, unspecified; F17.220 Nicotine dependence, chewing tobacco, uncomplicated; Z79.891 Long term (current) use of opiate analgesic; Z71.6 Tobacco abuse counseling | CPT/HCPCS: 99214 ==

== ENCOUNTER → 2020-09-15 10:29 | Outpatient (BNVA) | payer MEDICAID, SELFPAY | PROVIDERS: PCP Family Medicine; Visit Provider Anesthesiology | DX: M25.551 Pain in right hip (principal); M51.36 Other intervertebral disc degeneration, lumbar region; M54.9 Dorsalgia, unspecified; F17.220 Nicotine dependence, chewing tobacco, uncomplicated; Z71.6 Tobacco abuse counseling; Z79.891 Long term (current) use of opiate analgesic | CPT/HCPCS: 99213 ==

== ENCOUNTER → 2020-09-28 13:16 | Outpatient (BNVA) | payer MEDICAID, SELFPAY | PROVIDERS: PCP Family Medicine; Visit Provider Urology | DX: N30.00 Acute cystitis without hematuria (principal); N31.9 Neuromuscular dysfunction of bladder, unspecified; R33.9 Retention of urine, unspecified | CPT/HCPCS: 81003 ==

== ENCOUNTER 2020-10-04 14:53 | Emergency (ER) | payer MEDICAID, SELFPAY ==
[2020-10-04 16:04] VITALS: BP 87/56; PULSE 61; RESP 14; TEMP 36.6; O2SAT 98; BMI 35.5
[2020-10-04 17:39] VITALS: BP 132/79; PULSE 59; RESP 16; O2SAT 98
--- NOTE | 2020-10-04 17:45 | ED_ITS ---
HPI - GI Bleed General: Chief complaint: GI Bleed Stated complaint: BLEEDING FROM RECTUM Time Seen by Provider: 10/04/20 17:39 History of Present Illness: HPI Narrative: Patient with rectal bleeding today. Has history of constipation and hard stools. He is on hydrocodone and has had problems since then. Gives personal names his hemorrhoids he has. He did start after he took Ex-Lax yesterday to help with bowel movements. MD complaint: blood on toilet paper Onset (ago): day(s) Severity: mild Relieving factors: none Exacerbating factors: bowel movement Context: other (Hemorrhoids) Associated symptoms: Reports abdominal pain (Mild); Denies chills, easy bruising, fever(s), headache(s) or rash Review of Systems Const: Denies: fever(s), chills or body aches Eyes: Denies: change in vision or blurry vision ENMT: Denies: throat pain or nasal congestion Card: Denies: chest pain or dyspnea on exertion Resp: Denies: dyspnea, productive cough or non-productive cough GI: Reports: abdominal pain (Mild), pain on defecation, rectal itching and other (Bleeding hemorrhoids) : Denies: difficulty urinating Musc: Denies: extremity pain Skin/Breast: Denies: rash Neuro: Denies: headache(s) Psych: Denies: anxiety or depression Henry/Lymph: Denies: easy bruising PFSH ED PFSH: Medical History (Updated 10/04/20 @ 19:27 by JAMIE Jerome) Aortic embolism or thrombosis Atherosclerosis of coronary artery of [place] heart with stable angina pectoris Chews tobacco regularly Chronic idiopathic constipation CKD (chronic kidney disease), stage III DDD (degenerative disc disease), lumbar Follows with neurosurgery Diastolic CHF Dyslipidemia GERD (gastroesophageal reflux disease) Hypertension Labile blood pressure Neurogenic bladder Nocturnal enuresis Orthostatic hypotension Perforated gastric ulcer PVC (premature ventricular contraction) 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, on chronic amiodorone therapy Recurrent UTI Urinary retention Surgical History H/O esophagogastroduodenoscopy H/O exploratory laparotomy History of colonoscopy with polypectomy History of coronary artery stent placement X1 around 2018 in [place] History of heart bypass surgery 2 vessels at [facility] in [place] History of incisional hernia repair History of open heart surgery History of tonsillectomy S/P tonsillectomy and adenoidectomy Status post colonoscopy 2019 Family History Other CAD (coronary artery disease) Cancer Hypertension Social History Smoking and tobacco status: current every day smoker smokeless tobacco Smokeless tobacco user: chewing tobacco Smokeless tobacco details: 1 CAN EVERY 2-3 DAYS Alcohol intake: never Caregiver/support person: No Lives independently: No Household members: family Marital status: Single Current occupational status: disabled History of recent travel: No Current gender identity: Male Physical Exam Const: COMMON NORMALS: no acute distress, average body habitus and patient oriented x3 HENMT: COMMON NORMALS: normocephalic HEAD & SCALP: normal to inspection and normocephalic FACE & SINUS: normal facial exam Eye: COMMON NORMALS: conjunctivae normal GENERAL EYE: appearance normal, both eyes and all related structures CONJUNCTIVA: Yes conjunctivae normal Neck/C-Spine: COMMON NORMALS: no JVD Chest: COMMONS NORMALS: normal inspection of the chest Resp: COMMON NORMALS: normal respiratory effort and clear to auscultation bilaterally AUSCULTATION: clear to auscultation bilaterally Cardio: COMMON NORMALS: no JVD, regular rate and regular rhythm RATE: regular rate RHYTHM: regular rhythm GI: COMMON NORMALS: Normal to inspection, nondistended, normoactive bowel sounds present RECTAL EXAM: Yes normal sphincter tone and Yes hemorrhoids (Bleeding mild) Extremity: COMMON NORMALS: normal to inspection and full ROM Neuro: COMMON NORMALS: patient oriented x3 Course Vital Signs: Vital signs: Vital Signs Temperature 97.8 F 10/04/20 16:04 Pulse Rate 65 10/04/20 19:13 Respiratory Rate 17 10/04/20 19:13 Blood Pressure 140/89 10/04/20 19:13 Pulse Oximetry 98 10/04/20 19:13 MDM - GI Bleed MDM Narrative: Medical decision making narrative: Patient had no bleeding while here. His hemorrhoids were bleeding on examination. But very little. Patient states that he is having hard brown stools ever since being put on hydrocodone no medicine seems to be working. Has had to strain a lot. Patient will follow-up primary care doc will try some MiraLAX if that helps with the stools continue on present medication try to limit taking hydrocodone for all possible. Differential Diagnosis: GI bleed differential diagnosis: Likely hemorrhoids, gastritis, Lower gastrointestinal hemorrhage, hematochezia and melena Lab Data: Labs: Lab Results 10/04/20 10/04/20 10/04/20 Range/Units 18:45 18:45 18:45 WBC 9.9 (4.0-10.0) 10^3/ uL RBC 4.91 (4.1-5.3) 10^6/u L Hgb 14.8 (11.7-16.6) g/dL Hct 47.1 (42.0-52.0) % MCV 95.9 H (80-94) fL MCH 30.1 (28.0-34.0) pg MCHC 31.4 (30.0-36.0) g/dL RDW 12.7 (12.1-15.1) % Plt Count 199 (130-400) 10^3/c mm MPV 10.0 (7.4-10.4) fL Neut % (Auto) 66.6 % Lymph % (Auto) 24.2 % [place] % (Auto) 8.2 % Eos % (Auto) 0.4 % Baso % (Auto) 0.3 % Neut # (Auto) 6.59 (1.8-7.7) 10^3/u L Lymph # (Auto) 2.4 (0.8-4.8) 10^3/u L [place] # (Auto) 0.8 (0.2-0.9) 10^3/u L Eos # (Auto) 0.0 (0.0-0.8) 10^3/u L Baso # (Auto) 0.0 (0.0-0.1) 10^3/u L Nucleated RBC % (a uto) 0 % Nucleated RBCs # 0.0 /100WBC Sodium 139 (136-145) mmol/L Potassium 4.9 (3.5-5.1) mmol/L Chloride 104 (98-107) mmol/L Carbon Dioxide 26 (22-29) mmol/L Anion Gap 13.9 (5-19) BUN 22 (8-23) mg/dL Glucose 91 (65-115) mg/dL Calculated Osmolal ity 291 (285-295) mOsm/k g Lactic Acid 1.1 (0.5-2.2) mmol/L Calcium 8.9 (8.5-10.5) mg/dL Total Bilirubin 0.4 (0.15-1.2) mg/dL AST 17 (0-40) U/L ALT 17 (0-41) U/L Alkaline Phosphata se 81 (40-130) IU/L Albumin 3.9 (3.5-5.2) g/dL Globulin 2.5 (1.3-4.6) g/dL Lipase 17 (13-60) U/L Discharge Plan Discharge Patient Disposition: Home Clinical Impression: Bleeding external hemorrhoids Condition: Stable Prescriptions: New Miralax 17 gram/dose powder 8.5 g PO BID PRN (Reason: laxative effect) 28 Days Qty: 510 RF: 0 No Action amlodipine 5 mg tablet 5 mg PO BID@1000,2200 PRN (Reason: unknown) RF: 0 fludrocortisone 0.1 mg tablet 0.1 mg PO DAILY@1000 PRN (Reason: unknown) RF: 0 [id number] [Bahugz-Qfeuk-OAU (with antiox)] 500-500-66.7 mg tablet 1 tab PO DAILY@1000 RF: 0 methenamine hippurate 1 gram tablet 1 g PO Q12H RF: 0 ascorbic acid (vitamin C) 1,000 mg tablet extended release 1,000 mg PO Q12H RF: 0 hydrocodone-acetaminophen 7.5-325 mg tablet 1 tab PO Q8H PRN (Reason: pain) 30 Days Qty: 90 RF: 0 clonidine HCl 0.1 mg tablet 0.1 mg PO BID PRN (Reason: Systolic BP > 180 mmhg) Qty: 0 RF: 0 Aspir-81 81 mg Tablet,Delayed Release (Dr/Ec) 81 mg PO DAILY@1000 RF: 0 Neem 1 tab PO DAILY@1000 RF: 0 Peppermint/Coconut Extract See Rx Instructions .ROUTE .COMPLEX RF: 0 amiodarone 200 mg tablet 200 mg PO DAILY@1000 RF: 0 potassium citrate 10 mEq (1,080 mg) tablet extended release 10 meq PO DAILY@1000 RF: 0 pantoprazole 40 mg tablet,delayed release (DR/EC) 40 mg PO BID@1000,2200 RF: 0 Stool Softener 100 mg capsule 100 mg PO TID@1000,1200,2200 RF: 0 Crestor 10 mg tablet 10 mg PO DAILY@1000 RF: 0 Discharge Orders: Discharge ED (Routine); Ordered 10/04/20 Ordered By: Carlos A Saenz Referrals: Valencia Laureano DO [Primary Care Provider] - Discharge Diet: Usual diet Discharge Activity: Resume usual activity Patient Instructions: Hemorrhoids (ED) Activity Restrictions/Additional Instructions: Follow-up with medical provider as directed. Take medications as prescribed. Return to the ER or your medical provider if condition worsens. Please read and understand discharge instructions. If any questions ask please. Coding Level of Care Code ED Jig Boring Machine Operator For Metal for [facility] Fwd Exam Comprehensive
--- NOTE | 2020-10-04 17:47 | XRR_ITS ---
PROCEDURE INFORMATION: Exam: XR Abdomen, 1 View Exam date and time: 10/04/2020 5:49 PM Age: 65 years old Clinical indication: Constipation; Prior surgery TECHNIQUE: Imaging protocol: XR of the abdomen. Views: Frontal supine view of the abdomen. 1 View. COMPARISON: CR XR KUB [id number] 05/14/2018 6:47 PM FINDINGS: Gastrointestinal tract: Nonobstructive bowel gas pattern. A moderate amount of stool is seen throughout the colon. Bones/joints: No acute osseous injury visualized. XR/XR KUB portable [id number] IMPRESSION: Nonobstructive bowel gas pattern. Moderate amount of stool throughout the colon, suggestive of constipation.
[2020-10-04 18:23] VITALS: BP 149/100; PULSE 63; RESP 16; O2SAT 97
[2020-10-04 19:00] LABS: Basophils % 0.3 %; Eosinophils % 0.4 %; Hematocrit 47.1 % (42.0-52.0); Hemoglobin 14.8 g/dL (11.7-16.6); Lymphocytes # 2.4 10^3/uL (0.8-4.8); Lymphocytes % 24.2 %; Mean Corpuscular HGB Conc 31.4 g/dL (30.0-36.0); Mean Corpuscular Hemoglobin 30.1 pg (28.0-34.0); Mean Corpuscular Volume 95.9 fL (80-94); Monocytes # 0.8 10^3/uL (0.2-0.9); Monocytes % 8.2 %; Neutrophils # 6.59 10^3/uL (1.8-7.7); Neutrophils % 66.6 %; Nucleated Red Blood Cells % 0 %; Platelet Count 199 10^3/cmm (130-400); Red Blood Count 4.91 10^6/uL (4.1-5.3); Red Cell Distribution Width 12.7 % (12.1-15.1); White Blood Count 9.9 10^3/uL (4.0-10.0)
[2020-10-04 19:13] VITALS: BP 140/89; PULSE 65; RESP 17; O2SAT 98
[2020-10-04 19:17] LABS: Alanine Aminotransferase 17 U/L (0-41); Albumin Level 3.9 g/dL (3.5-5.2); Alkaline Phosphatase 81 IU/L (40-130); Anion Gap 13.9 (5-19); Aspartate Amino Transferase 17 U/L (0-40); Blood Urea Nitrogen 22 mg/dL (8-23); Calcium 8.9 mg/dL (8.5-10.5); Carbon Dioxide 26 mmol/L (22-29); Chloride 104 mmol/L (98-107); Globulin 2.5 g/dL (1.3-4.6); Glomerular Filtration Rate 47.1 mL/min (90-130); Glucose 91 mg/dL (65-115); Lipase 17 U/L (13-60); Osmolality Calculated 291 mOsm/kg (285-295); Potassium 4.9 mmol/L (3.5-5.1); Sodium 139 mmol/L (136-145); Total Bilirubin 0.4 mg/dL (0.15-1.2); Total Protein 6.4 g/dL (6.6-8.7)
[2020-10-04 19:22] LABS: Lactic Sepsis W/Reflex 1.1 mmol/L (0.5-2.2)
== END 2020-10-04 19:31 | disposition home or self-care (01) ==
PROVIDERS: Physician Assistant; Emergency Provider Nurse Practitioner Family; PCP Family Medicine
DX: K64.4 Residual hemorrhoidal skin tags (principal); Z79.82 Long term (current) use of aspirin; I25.118 Atherosclerotic heart disease of native coronary artery with other forms of angina pectoris; I13.0 Hypertensive heart and chronic kidney disease with heart failure and stage 1 through stage 4 chronic kidney disease, or unspecified chronic kidney disease; N18.30 Chronic kidney disease, stage 3 unspecified; I50.30 Unspecified diastolic (congestive) heart failure; E78.5 Hyperlipidemia, unspecified; F17.220 Nicotine dependence, chewing tobacco, uncomplicated
CPT/HCPCS: 12345; 36415; 74018; 80053; 83605; 83690; 85025; 99282; 99283

== ENCOUNTER 2020-11-18 14:35 | Outpatient (RCR) | payer MEDICAID, SELFPAY | END 2020-12-01 23:59 | disposition home or self-care (01) | LOC: SPT 14:35 | PROVIDERS: PCP Family Medicine; Referring Provider Family Medicine; Visit Provider Family Medicine | DX: M54.5 Low back pain (principal); G89.29 Other chronic pain | CPT/HCPCS: 97110; 97161 ==

== ENCOUNTER → 2020-11-24 09:18 | Outpatient (BNVA) | payer MEDICAID, SELFPAY | PROVIDERS: PCP Family Medicine; Visit Provider Nurse Practitioner | DX: M51.36 Other intervertebral disc degeneration, lumbar region (principal); M54.9 Dorsalgia, unspecified; W19.XXXA Unspecified fall, initial encounter; X58.XXXA Exposure to other specified factors, initial encounter; F17.229 Nicotine dependence, chewing tobacco, with unspecified nicotine-induced disorders; Z79.891 Long term (current) use of opiate analgesic; Z71.6 Tobacco abuse counseling | CPT/HCPCS: 99213; 99214 ==

== ENCOUNTER 2020-12-02 06:00 | Outpatient (RCR) | payer MEDICAID, SELFPAY | END 2020-12-16 23:00 | disposition home or self-care (01) | LOC: SPT 06:00 | PROVIDERS: PCP Family Medicine; Referring Provider Family Medicine; Visit Provider Family Medicine | DX: G89.29 Other chronic pain (principal); M54.5 Low back pain | CPT/HCPCS: 97110 ==

== ENCOUNTER 2020-12-06 08:44 | Outpatient (CLI) | payer MEDICAID, SELFPAY ==
--- NOTE | 2020-12-06 08:00 | MR_ITS ---
WS: [id number] MRI LUMBAR SPINE NONCONTRAST TECHNIQUE: Sagittal T1, T2 and STIR imaging. Axial T1 and T2 imaging. CLINICAL INFORMATION: chronic low back pain with radiculopathy COMPARISON: MRI and myelogram September 2018 FINDINGS: Mild lumbar curve. No acute compression. Disc bulging worse L4-L5 and L5-S1. No high-grade central ca nal stenosis. L1-L2: Normal L2-L3: Mild disc osteophytic ridging. Mild right greater than left foraminal narrowing. Mild facet ar thropathy. L3-L4: Mild annular bulging with slight effacement of ventral thecal sac. Slight narrowing of the rig ht subarticular recess. Spinal canal is patent. Mild bilateral foraminal narrowing. L4-L5: Mild annular bulging with slight narrowing of the subarticular recess bilaterally. Mild right greater than left foraminal narrowing. Moderate facet arthropathy. L5-S1: Disc bulging eccentric to the left with impingement traversing left S1 nerve root and subartic ular recess. Moderate facet arthropathy. Left eccentric disc osteophyte complex with moderate left fo raminal narrowing. Mild right foraminal narrowing. Findings not significantly changed since the recent examinations. Tortuous calcified infrarenal abdominal aorta with mural thrombus. Aneurysmal infrarenal abdominal ao rta measures 4.2 x 3.5 cm only partially visualized MR/MR lumbar spine wo con* [id number] IMPRESSION: 1. Aneurysmal tortuous infrarenal abdominal aorta appears slightly progressed from previous but only partially visualized. This can be further evaluated with CTA abdomen pelvis. Today this measures 4.2 x 3.5 cm AP by transverse. Periphe ral mural thrombus. 2. Left pericentral disc osteophyte complex impinges the traversing left S1 ne rve root unchanged. Moderate left L5-S1 foraminal narrowing. 3. Annular bulging L4-5 with slight impingement on the subarticular recess trae aterally and mild right greater than left foraminal narrowing. Moderate facet a rthropathy at this level. 4. Mild annular bulging L3-4 with mild bilateral foraminal narrowing. Slight n arrowing of the right subarticular recess.
== END 2020-12-06 08:45 | disposition home or self-care (01) ==
LOC: RADSHAW 08:45
PROVIDERS: PCP Family Medicine; Visit Provider Family Medicine
DX: G89.29 Other chronic pain (principal); M54.16 Radiculopathy, lumbar region; M25.78 Osteophyte, vertebrae; M51.26 Other intervertebral disc displacement, lumbar region; I71.4 Abdominal aortic aneurysm, without rupture
CPT/HCPCS: 72148

== ENCOUNTER → 2020-12-16 10:47 | Outpatient (BNVA) | payer MEDICAID, SELFPAY | PROVIDERS: PCP Family Medicine; Referring Provider Family Medicine; Visit Provider Orthopaedic Surgery | DX: M48.062 Spinal stenosis, lumbar region with neurogenic claudication; I71.4 Abdominal aortic aneurysm, without rupture | CPT/HCPCS: 72110 ==

== ENCOUNTER → 2020-12-23 11:37 | Outpatient (BNVA) | payer MEDICAID, SELFPAY | PROVIDERS: PCP Family Medicine; Visit Provider Nurse Practitioner | DX: M54.9 Dorsalgia, unspecified (principal); M48.062 Spinal stenosis, lumbar region with neurogenic claudication; W19.XXXA Unspecified fall, initial encounter; X58.XXXA Exposure to other specified factors, initial encounter; F17.229 Nicotine dependence, chewing tobacco, with unspecified nicotine-induced disorders; Z79.891 Long term (current) use of opiate analgesic; M51.36 Other intervertebral disc degeneration, lumbar region; Z71.6 Tobacco abuse counseling | CPT/HCPCS: 99214 ==

== ENCOUNTER 2020-12-27 12:20 | Observation (INO) | payer MEDICAID, SELFPAY ==
[2020-12-27] VITALS (7 sets, daily range): BP systolic 87–232; BP diastolic 49–137; PULSE 66–84; RESP 16–18; TEMP 36.6; O2SAT 95–99; BMI 32.3
--- NOTE | 2020-12-27 12:34 | CT_ITS ---
WS: [id number] CT HEAD NONCONTRAST HISTORY: fall, loc TECHNIQUE: Contiguous axial imaging performed through the brain in 2.5 mm imaging. Bone and soft tiss ue windows. Sagittal and coronal reformats reviewed. All CT scans at [facility] use at ast one of these dose optimization techniques: automated exposure control; mA and/or kV adjustment pe r patient size (includes targeted exams where dose is matched to clinical indication); or iterative r econstruction. DLP: 872.7 mGy.cm COMPARISON: 03/08/2020 No acute intracranial hemorrhage, midline shift or mass effect. Mild atrophy and small calcifications in the basal ganglia. No hemorrhage identified. Ventricles: Normal size with no hydrocephalus. Mild calcifications noted within the intracranial carotid arteries. Paranasal sinuses: As visualized are clear. Mastoid air cells: Well pneumatized. Calvarium and scalp: Skull is intact with no soft tissue edema or swelling. CT/CT head wo con* [id number] IMPRESSION: 1. No acute intracranial hemorrhage or edema. 2. No skull fracture. 3. Mild atrophy.
--- NOTE | 2020-12-27 12:35 | ECG_ITS ---
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
[2020-12-27 13:06] LABS: Basophils % 0.4 %; Eosinophils % 0.5 %; Hematocrit 42.2 % (42.0-52.0); Hemoglobin 13.5 g/dL (11.7-16.6); Lymphocytes # 1.9 10^3/uL (0.8-4.8); Lymphocytes % 24.5 %; Mean Corpuscular Hemoglobin 30.8 pg (28.0-34.0); Mean Corpuscular Volume 96.3 fL (80-94); Mean Platelet Volume 10.1 fL (7.4-10.4); Monocytes # 0.6 10^3/uL (0.2-0.9); Monocytes % 7.9 %; Neutrophils % 66.4 %; Nucleated Red Blood Cells % 0 %; Platelet Count 248 10^3/cmm (130-400); Red Blood Count 4.38 10^6/uL (4.1-5.3); Red Cell Distribution Width 12.4 % (12.1-15.1); White Blood Count 7.7 10^3/uL (4.0-10.0)
[2020-12-27 13:33] LABS: Lactate (Lactic Acid level) 4.5 mmol/L (0.5-2.2)
[2020-12-27 13:34] LABS: Alanine Aminotransferase 22 U/L (0-41); Albumin Level 4.1 g/dL (3.5-5.2); Alkaline Phosphatase 70 IU/L (40-130); Anion Gap 19.9 (5-19); Aspartate Amino Transferase 26 U/L (0-40); Blood Urea Nitrogen 16 mg/dL (8-23); Calcium 8.8 mg/dL (8.5-10.5); Carbon Dioxide 22 mmol/L (22-29); Chloride 105 mmol/L (98-107); Creatine Phosphokinase 114 U/L (39-308); Globulin 1.7 g/dL (1.3-4.6); Glomerular Filtration Rate 55.6 mL/min (90-130); Glucose 91 mg/dL (65-115); Osmolality Calculated 295 mOsm/kg (285-295); Potassium 4.9 mmol/L (3.5-5.1); Sodium 142 mmol/L (136-145); Total Bilirubin 0.5 mg/dL (0.15-1.2); Total Protein 5.8 g/dL (6.6-8.7)
[2020-12-27 13:36] LABS: Troponin(5th) Baseline 58 ng/L (0-15)
[2020-12-27] MEDS: sodium chloride 0.9% 1,000 ML 999 ML IV (14:22)
--- NOTE | 2020-12-27 14:33 | ED_ITS ---
HPI - Fall General: Chief Complaint: Fall Stated Complaint: FALL Time Seen by Provider: 12/27/20 12:26 Source: patient Mode of arrival: EMS Limitations: no limitations History of Present Illness: HPI Narrative: Patient is a 65-year-old male who was brought into the emergency department for evaluation after a syncopal episode. The patient states he has had several episodes of falls or syncope recently. Today he got up and on his way to use the restroom he had the events. He was unconscious for about 5 minutes. Patient states that his blood pressure has been low and runs anywhere from 50s systolic to 80s systolic. He has clonidine and amlodipine but he is only supposed to use them if he is systolic blood pressure goes above 180. According to his mother whom the patient lives with the patient has difficult to control blood pressures and the swelling from being very low to being very high. As far as I can tell he has not been worked up for pheochromocytoma. He is on fludrocortisone. Patient denies any headache at this time, denies any chest pain, denies any dizziness at this time. He states that he feels well. He did complain that he has been constipated from using opiates and has not had a bowel movement in several days. Shortly after arrival to the emergency department he had a large bowel movement. complaint: fall Fall from: standing Fall witnessed: yes, by family Place fall occurred: home Loss of consciousness: Yes Length of LOC: minutes(s) (5) Prolonged down time: no Symptoms prior to fall: lightheadedness Context: history of frequent falls Associated symptoms-after fall: Denies abdominal pain, chest pain, confusion, difficulty walking, headache(s), hematuria, lightheadedness, neck pain, numbness, short of breath, vertigo or weakness Review of Systems General: Reports: 10 or more systems reviewed and unremarkable except in HPI and below Card: Denies: chest pain or lightheadedness GI: Denies: abdominal pain : Denies: hematuria Musc: Denies: neck pain Neuro: Denies: headache(s), difficulty walking, vertigo or confusion PFS ED PFSH: Medical History Aortic embolism or thrombosis Atherosclerosis of coronary artery of [place] heart with stable angina pectoris Chronic idiopathic constipation CKD (chronic kidney disease), stage III DDD (degenerative disc disease), lumbar Diastolic CHF Dyslipidemia GERD (gastroesophageal reflux disease) Hypertension Labile blood pressure Neurogenic bladder Nocturnal enuresis Orthostatic hypotension Perforated gastric ulcer PVC (premature ventricular contraction) 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[place], on chronic amiodorone therapy Recurrent UTI Urinary retention Surgical History H/O esophagogastroduodenoscopy H/O exploratory laparotomy History of colonoscopy with polypectomy History of coronary artery stent placement X1 around 2018 in [place] History of heart bypass surgery 2 vessels at [facility] in [place] History of incisional hernia repair History of open heart surgery S/P tonsillectomy and adenoidectomy Status post colonoscopy 2019 Family History Other CAD (coronary artery disease) Cancer Hypertension Social History Smoking and tobacco status: current every day smoker smokeless tobacco Smokeless tobacco user: chewing tobacco Smokeless tobacco details: 1 CAN EVERY 2-3 DAYS Alcohol intake: never Caregiver/support person: No Lives independently: No Household members: family Marital status: Single Current occupational status: disabled History of recent travel: No Current gender identity: Male Physical Exam Const: COMMON NORMALS: no acute distress, average body habitus, patient oriented x3, no limitations, healthy appearing, alert and well nourished HENMT: COMMON NORMALS: normocephalic, atraumatic and moist oral mucous membranes HEAD & SCALP: normocephalic and atraumatic Neck/C-Spine: COMMON NORMALS: no meningeal signs and no JVD Resp: COMMON NORMALS: normal respiratory effort, No retractions, No use of accessory muscles, clear to auscultation bilaterally and percussion normal AUSCULTATION: clear to auscultation bilaterally PERCUSSION: percussion normal Cardio: COMMON NORMALS: no JVD, regular rate, regular rhythm, S1 normal heart sound present, S2 normal heart sound present, No gallops present (Cardio), No clicks present (Cardio), No murmurs present (Cardio), No rub (Cardio) and Peripheral pulses 2+ throughout RATE: regular rate RHYTHM: regular rhythm HEART SOUNDS: S1 normal heart sound present and S2 normal heart sound present PERIPHERAL PULSES: Peripheral pulses 2+ throughout GI: COMMON NORMALS: Normal to inspection, nondistended, normoactive bowel sounds present, Soft to palpation, non-tender, No hepatosplenomegaly present, no masses and no bruits PALPATION: Yes Soft to palpation and Yes No hepatosplenomegaly present Extremity: COMMON NORMALS: normal to inspection, full ROM, capillary refill normal, no calf tenderness and no pedal edema Neuro: COMMON NORMALS: patient oriented x3 SENSORIUM/ORIENTATION: Yes alert MENINGEAL SIGNS: Yes no meningeal signs Skin: COMMON NORMALS: no rashes or lesions noted, no wounds, turgor normal, no jaundice, no petechiae and no mottling GENERAL SKIN EXAM: no rashes or lesions noted and turgor normal Course Consultations: Consultation #1: Discussed the patient with Dr. Trejo, hospitalist. He kindly accepted the patient to his service Time: 17:47 Vital Signs: Vital signs: Vital Signs Temperature 98 F 12/28/20 00:00 Pulse Rate 73 12/28/20 00:20 Respiratory Rate 26 H 12/28/20 00:00 Blood Pressure 131/85 12/28/20 00:20 Pulse Oximetry 94 12/28/20 00:00 MDM - Fall MDM Narrative: Medical decision making narrative: 65-year-old male with a history of labile blood pressure presents to the emergency department after a syncopal episode today. In the emergency department he was noted to be significantly hypotensive with systolic as low as 50s, however shortly thereafter his blood pressure swung wildly and the systolic is in the 200s. Blood pressure was taken on the same arm. In the emergency department he had significantly elevated lactic acid that resolved following hydration, had elevated troponin and a delta of -15 at 2 hours. My concern for the significant swings in his blood pressure makes me hesitant to discharge him home. He lives at home with his elderly mother who is unable to provide him much help if he needs it. Patient is therefore discharged overnight to monitor his blood pressure and to make any changes that are required. Medical Records: Attestation: I reviewed the patient's medical records. Lab Data: Attestation: I reviewed the patient's lab results. Labs: Lab Results 12/27/20 12/27/20 12/27/20 Range/Units 12:58 12:58 12:58 WBC 7.7 (4.0-10.0) 10^3/ uL RBC 4.38 (4.1-5.3) 10^6/u L Hgb 13.5 (11.7-16.6) g/dL Hct 42.2 (42.0-52.0) % MCV 96.3 H (80-94) fL MCH 30.8 (28.0-34.0) pg MCHC 32.0 (30.0-36.0) g/dL RDW 12.4 (12.1-15.1) % Plt Count 248 (130-400) 10^3/c mm MPV 10.1 (7.4-10.4) fL Neut % (Auto) 66.4 % Lymph % (Auto) 24.5 % Hughes % (Auto) 7.9 % Eos % (Auto) 0.5 % Baso % (Auto) 0.4 % Neut # (Auto) 5.10 (1.8-7.7) 10^3/u L Lymph # (Auto) 1.9 (0.8-4.8) 10^3/u L Hughes # (Auto) 0.6 (0.2-0.9) 10^3/u L Eos # (Auto) 0.0 (0.0-0.8) 10^3/u L Baso # (Auto) 0.0 (0.0-0.1) 10^3/u L Nucleated RBC % (a uto) 0 % Nucleated RBCs # 0.0 /100WBC Sodium 142 (136-145) mmol/L Potassium 4.9 (3.5-5.1) mmol/L Chloride 105 (98-107) mmol/L Carbon Dioxide 22 (22-29) mmol/L Anion Gap 19.9 H (5-19) BUN 16 (8-23) mg/dL Creatinine 1.3 H (0.7-1.2) mg/dL GFR Calculation 55.6 L (90-130) mL/min Glucose 91 (65-115) mg/dL Calculated Osmolal ity 295 (285-295) mOsm/k g Lactate 4.5 H* (0.5-2.2) mmol/L Calcium 8.8 (8.5-10.5) mg/dL Total Bilirubin 0.5 (0.15-1.2) mg/dL AST 26 (0-40) U/L ALT 22 (0-41) U/L Alkaline Phosphata se 70 (40-130) IU/L Creatine Kinase 114 (39-308) U/L Troponin T Baselin e (0-15) ng/L Troponin T 120 Min [place] (0-15) ng/L Delta Troponin T (0-10) ABS# Total Protein 5.8 L (6.6-8.7) g/dL Albumin 4.1 (3.5-5.2) g/dL Globulin 1.7 (1.3-4.6) g/dL 12/27/20 12/27/20 12/27/20 Range/Units 12:58 15:15 16:30 WBC (4.0-10.0) 10^3/ uL RBC (4.1-5.3) 10^6/u L Hgb (11.7-16.6) g/dL Hct (42.0-52.0) % MCV (80-94) fL MCH (28.0-34.0) pg MCHC (30.0-36.0) g/dL RDW (12.1-15.1) % Plt Count (130-400) 10^3/c mm MPV (7.4-10.4) fL Neut % (Auto) % Lymph % (Auto) % Hughes % (Auto) % Eos % (Auto) % Baso % (Auto) % Neut # (Auto) (1.8-7.7) 10^3/u L Lymph # (Auto) (0.8-4.8) 10^3/u L Hughes # (Auto) (0.2-0.9) 10^3/u L Eos # (Auto) (0.0-0.8) 10^3/u L Baso # (Auto) (0.0-0.1) 10^3/u L Nucleated RBC % (a uto) % Nucleated RBCs # /100WBC Sodium (136-145) mmol/L Potassium (3.5-5.1) mmol/L Chloride (98-107) mmol/L Carbon Dioxide (22-29) mmol/L Anion Gap (5-19) BUN (8-23) mg/dL Creatinine (0.7-1.2) mg/dL GFR Calculation (90-130) mL/min Glucose (65-115) mg/dL Calculated Osmolal ity (285-295) mOsm/k g Lactate 1.8 (0.5-2.2) mmol/L Calcium (8.5-10.5) mg/dL Total Bilirubin (0.15-1.2) mg/dL AST (0-40) U/L ALT (0-41) U/L Alkaline Phosphata se (40-130) IU/L Creatine Kinase (39-308) U/L Troponin T Baselin e 58 H (0-15) ng/L Troponin T 120 Min [place] 42.82 H (0-15) ng/L Delta Troponin T -15.18 L (0-10) ABS# Total Protein (6.6-8.7) g/dL Albumin (3.5-5.2) g/dL Globulin (1.3-4.6) g/dL Imaging Data^: CT Abd/Pel: Attestation: I personally reviewed and interpreted this imaging study as follows: Radiologist's impression: [address] [id number] Scan ReportSigned Patient: Cali Turner #: [id number]: 6Acct#:[id number]/Sex: 65 / MADM Date: 12/27/20Loc: ERRoom/Bed:Attending Dr: Ordering Provider/Ordering MD: America Tobar MD, [facility] [place] Date of Service: 12/27/20 Procedure(s): CT abdomen pelvis w con* [id number] Accession Number(s): [id number] Report Number: [id number] PROCEDURE INFORMATION: Exam: CT Abdomen And Pelvis With Contrast Exam date and time: 12/27/2020 4:24 PM Age: 65 years old Clinical indication: Constipation; Prior surgery; Surgery type: Colon, HX of skin cancer; Additional info: Constipation, lactic acidosis, hypotension TECHNIQUE: Imaging protocol: Computed tomography of the abdomen and pelvis with contrast. Total images: 254 Radiation optimization: All CT scans at this facility use at least one of these dose optimization techniques: automated exposure control; mA and/or kV adjustment per patient size (includes targeted exams where dose is matched to clinical indication); or iterative reconstruction. Contrast material: VISIPAQUE; Contrast volume: 95 ml; Contrast route: INTRAVENOUS (IV); COMPARISON: CT abdomen pelvis carie [id number] 03/10/2020 11:02 AM RADIATION DOSE METRICS: Total DLP (mGy-cm): 1783.88 FINDINGS: Lungs: Limited assessment of the lung bases fails to reveal evidence for active cardiopulmonary process. Minimal parenchymal scar atelectasis lingula stable. Liver: No visible hepatic mass or cystic structure. Gallbladder and bile ducts: Gallbladder not visualized presumed surgically absent. No visible intra or extrahepatic biliary ectasia. Pancreas: Mild fatty replacement of the pancreas. No visible pancreatic ductal ectasia. Spleen: Normal. No splenomegaly. Adrenal glands: Adrenal glands unremarkable. Kidneys and ureters: No hydronephrosis or perinephric fluid. No visible nephrolithiasis or ureterolithiasis. Stable simple renal cortical cysts. No follow-up recommended. Stomach and bowel: Assessment of the hollow viscus fails to reveal evidence of active or acute pathology. Nonobstructed bowel pattern. No visible acute diverticulitis. No visible adynamic or reactive ileus. No evidence for constipation. No findings of significant diverticulosis coli or diverticulitis. Appendix: The appendix is visualized and appears noninflamed. Intraperitoneal space: No visible evidence of mesenteric lymphadenitis or active mesenteritis/panniculitis. No visible pneumoperitoneum or intraperitoneal ascites. Vasculature: Coronary artery disease. No visible pericardial effusion. Portal vein patent. Stable fusiform aneurysmal dilatation of the distal thoracic aorta and the abdominal aorta. No visible intimal flap or dissection. Maximum AP diameter of the distal thoracic aorta just above the by a [place] 44 mm. Maximum AP diameter of the proximal abdominal aorta just below the superior mesenteric artery 37 mm. Maximum diameter of the distal abdominal aorta before the bifurcation 30 mm. Moderate arteriosclerosis. Small volume intramural thrombus. Lymph nodes: No current visible evidence of active mesenteric or retroperitoneal lymphadenopathy. Urinary bladder: Mild diffuse bladder wall thickening. This could be secondary to partial bladder outlet obstruction or from chronic cystitis. Reproductive: Mild prostate hypertrophy. Bones/joints: No visible active or acute osseous pathology. Degenerative disc disease L5/S1 with vacuum disc phenomenon. Facet arthrosis L5/S1. Status post sternotomy chest. Soft tissues: Unremarkable. CT/CT abdomen pelvis w con* [id number] IMPRESSION: 1. Currently no visible evidence for acute abdominal or pelvic pathologic process. 2. Stable fusiform aneurysmal dilatation of the distal thoracic aorta and the abdominal aorta as detailed in text above. No visible intimal flap or dissection. Moderate arteriosclerosis. Small volume intramural thrombus. 3. Mild diffuse bladder wall thickening which could be secondary to partial bladder outlet obstruction or from chronic cystitis. 4. The appendix is visualized and appears noninflamed. 5. No visible evidence of constipation. Radiation Dose CTDIVOL = (mGy): DLP = 1783.88 (mGy-cm) Dictated By:Jocelyn Linder By:Jocelyn Linder Date/Time:12/27/20D/ 09 CT Head: Attestation: I personally reviewed and interpreted this imaging study as fo llows: Radiologist's impression: [address] [id number] Scan ReportSigned Patient: Cali Turner #: [id number]: 08/296Acct#:[id number]/Sex: 65 / MADM Date: 12/27/20Loc: ERRoom/Bed:Attending Dr: Ordering Provider/Ordering MD: America Tobar MD, [facility] [place] Date of Service: 12/27/20 Procedure(s): CT head wo con* [id number] Accession Number(s): [id number] Report Number: [id number] WS: [id number] CT HEAD NONCONTRAST HISTORY: fall, loc TECHNIQUE: Contiguous axial imaging performed through the brain in 2.5 mm imaging. Bone and soft tissue windows. Sagittal and coronal reformats reviewed. All CT scans at [facility] use at least one of these dose optimization techniques: automated exposure control; mA and/or kV adjustment per patient size (includes targeted exams where dose is matched to clinical indication); or iterative reconstruction. DLP: 872.7 mGy.cm COMPARISON: 03/08/2020 No acute intracranial hemorrhage, midline shift or mass effect. Mild atrophy and small calcifications in the basal ganglia. No hemorrhage identified. Ventricles: Normal size with no hydrocephalus. Mild calcifications noted within the intracranial carotid arteries. Paranasal sinuses: As visualized are clear. Mastoid air cells: Well pneumatized. Calvarium and scalp: Skull is intact with no soft tissue edema or swelling. CT/CT head wo con* [id number] IMPRESSION: 1. No acute intracranial hemorrhage or edema. 2. No skull fracture. 3. Mild atrophy. Dictated By:Minnie Estes DOSigned By:Minnie Estes DOSigned Date/Time:12/27/20 1324DD/ 1320 EKG Data^: EKG 1: Attestation: I personally reviewed and interpreted this EKG as follows: EKG interpretation date: 12/27/20 EKG interpretation time: 12:56 Prior EKG tracings: not available for review Interpretation: Sinus rhythm. Heart rate 64 bpm. Normal axis. No ST changes. EKG 2: Attestation: I personally reviewed and interpreted this EKG as follows: EKG interpretation date: 12/27/20 Computer generated interpretation: [email or web address] [address] [id number] ReportSigned Patient: Cali Turner #: [id number]: 1955cct#:[id number]/Sex: 65 / MADM Date: 12/27/20Loc: CSURoom/Bed: [facility]Att[facility] Dr: Javier Trejo MD Ordering Provider/Ordering MD: America Tobar MD, [facility] [place] Date of Service: 12/27/20 Procedure(s): ECG 12 lead EKG Accession Number(s): [id number] Report Number: [id number] [facility] Test Date: 2020-12-27 Pat Name: Cali Turner Department: Room: 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1955 Requested By: America Tobar I Order Number: [id number] Reading MD: SHUN DEJESUS Measurements Intervals [place] Rate: 67 P: 12 UT: 177 QRS: 5 QRSD: 105 T: 72 QT: 424 QTc: 449 Interpretive Statements SINUS RHYTHM POSSIBLE LEFT ATRIAL ENLARGEMENT [-0.1mV P WAVE IN V1/V2] POSSIBLE INFERIOR MYOCARDIAL INFARCTION [30 ms Q WAVE IN II/aVF], PROBABLY OLD Compared to ECG 12/27/2020 12:56:18 Myocardial infarct finding now present T-wave abnormality no longer present Electronically Signed On 12-27-2020 21:29:41 CDT by SHUN DEJESUS [id number] Dictated By:Shun Dejesus MDSigned By:Shun Dejesus MDSigned Date/Time:12/27/20 2131DD/ 1433 EKG 3: Attestation: I personally reviewed and interpreted this EKG as follows: EKG interpretation date: 12/27/20 EKG interpretation time: 18:30 Prior EKG tracings: available for review Interpretation: Sinus rhythm. Heart rate [address] changes. No significant change from earlier Discharge Plan Discharge Patient Disposition: Placed in Observation Admit Provider: Javier Trejo Clinical Impression: Labile blood pressure Condition: Stable Coding Level of Care Code ED Certified Prosthetist for Joshg Tamy
--- NOTE | 2020-12-27 14:35 | ECG_ITS ---
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1955 Requested By: America Tobar I Order Number: [id number] Reading MD: SHUN LONGORIA Measurements Intervals [place] Rate: 67 P: 12 MS: 177 QRS: 5 QRSD: 105 T: 72 QT: 424 QTc: 449 Interpretive Statements SINUS RHYTHM POSSIBLE LEFT ATRIAL ENLARGEMENT [-0.1mV P WAVE IN V1/V2] POSSIBLE INFERIOR MYOCARDIAL INFARCTION [30 ms Q WAVE IN II/aVF], PROBABLY OLD Compared to ECG 12/27/2020 12:56:18 Myocardial infarct finding now present T-wave abnormality no longer present Electronically Signed On 12-27-2020 21:29:41 CDT by SHUN LONGORIA [id number]
[2020-12-27 16:00] LABS: Troponin 5 2HR 42.82 ng/L (0-15); Troponin 5 2HR Delta -15.18 ABS# (0-10)
--- NOTE | 2020-12-27 16:18 | CTR_ITS ---
PROCEDURE INFORMATION: Exam: CT Abdomen And Pelvis With Contrast Exam date and time: 12/27/2020 4:24 PM Age: 65 years old Clinical indication: Constipation; Prior surgery; Surgery type: Colon, HX of skin cancer; Additional info: Constipation, lactic acidosis, hypotension TECHNIQUE: Imaging protocol: Computed tomography of the abdomen and pelvis with contrast. Total images: 254 Radiation optimization: All CT scans at this facility use at least one of these dose optimization techniques: automated exposure control; mA and/or kV adjustment per patient size (includes targeted exams where dose is matched to clinical indication); or iterative reconstruction. Contrast material: VISIPAQUE; Contrast volume: 95 ml; Contrast route: INTRAVENOUS (IV); COMPARISON: CT abdomen pelvis wo con [id number] 03/10/2020 11:02 AM RADIATION DOSE METRICS: Total DLP (mGy-cm): 1783.88 FINDINGS: Lungs: Limited assessment of the lung bases fails to reveal evidence for active cardiopulmonary process. Minimal parenchymal scar atelectasis lingula stable. Liver: No visible hepatic mass or cystic structure. Gallbladder and bile ducts: Gallbladder not visualized presumed surgically absent. No visible intra or extrahepatic biliary ectasia. Pancreas: Mild fatty replacement of the pancreas. No visible pancreatic ductal ectasia. Spleen: Normal. No splenomegaly. Adrenal glands: Adrenal glands unremarkable. Kidneys and ureters: No hydronephrosis or perinephric fluid. No visible nephrolithiasis or ureterolithiasis. Stable simple renal cortical cysts. No follow-up recommended. Stomach and bowel: Assessment of the hollow viscus fails to reveal evidence of active or acute pathology. Nonobstructed bowel pattern. No visible acute diverticulitis. No visible adynamic or reactive ileus. No evidence for constipation. No findings of significant diverticulosis coli or diverticulitis. Appendix: The appendix is visualized and appears noninflamed. Intraperitoneal space: No visible evidence of mesenteric lymphadenitis or active mesenteritis/panniculitis. No visible pneumoperitoneum or intraperitoneal ascites. Vasculature: Coronary artery disease. No visible pericardial effusion. Portal vein patent. Stable fusiform aneurysmal dilatation of the distal thoracic aorta and the abdominal aorta. No visible intimal flap or dissection. Maximum AP diameter of the distal thoracic aorta just above the by a [place] 44 mm. Maximum AP diameter of the proximal abdominal aorta just below the superior mesenteric artery 37 mm. Maximum diameter of the distal abdominal aorta before the bifurcation 30 mm. Moderate arteriosclerosis. Small volume intramural thrombus. Lymph nodes: No current visible evidence of active mesenteric or retroperitoneal lymphadenopathy. Urinary bladder: Mild diffuse bladder wall thickening. This could be secondary to partial bladder outlet obstruction or from chronic cystitis. Reproductive: Mild prostate hypertrophy. Bones/joints: No visible active or acute osseous pathology. Degenerative disc disease L5/S1 with vacuum disc phenomenon. Facet arthrosis L5/S1. Status post sternotomy chest. Soft tissues: Unremarkable. CT/CT abdomen pelvis w con* [id number] IMPRESSION: 1. Currently no visible evidence for acute abdominal or pelvic pathologic process. 2. Stable fusiform aneurysmal dilatation of the distal thoracic aorta and the abdominal aorta as detailed in text above. No visible intimal flap or dissection. Moderate arteriosclerosis. Small volume intramural thrombus. 3. Mild diffuse bladder wall thickening which could be secondary to partial bladder outlet obstruction or from chronic cystitis. 4. The appendix is visualized and appears noninflamed. 5. No visible evidence of constipation. Radiation Dose CTDIVOL = (mGy): DLP = 1783.88 (mGy-cm)
[2020-12-27] MEDS: iodixanol 320 mg/mL 100mL Btl IV (16:50)
[2020-12-27 17:33] LABS: Lactate (Lactic Acid level) 1.8 mmol/L (0.5-2.2)
--- NOTE | 2020-12-27 18:35 | ECG_ITS ---
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[id number] Requested By: America Tobar I Order Number: [id number] Reading MD: SHUN LONGORIA Measurements Intervals [place] Rate: 74 P: 37 DC: 178 QRS: 7 QRSD: 108 T: 71 QT: 426 QTc: 474 Interpretive Statements SINUS RHYTHM POSSIBLE LEFT ATRIAL ENLARGEMENT [-0.1mV P WAVE IN V1/V2] NONSPECIFIC ST & T-WAVE ABNORMALITY Compared to ECG 12/27/2020 14:33:51 T-wave abnormality now present Myocardial infarct finding no longer present Electronically Signed On 12-27-2020 21:24:40 CDT by SHUN LONGORIA [id number]
--- NOTE | 2020-12-27 19:55 | P.HP_ITS ---
Providers/Chief Complaint Admitting Physician: Javier Trejo Primary Care Provider: Valencia Laureano DO Chief Complaint: FALL History of Present Illness Very pleasant 65-year-old woman with history of CAD, CABG 8-9 years ago at [facility], status post coronary angioplasty and stenting in [facility], recurrent constipation, neurogenic bladder requiring self catheterizations, chronic back pain with degenerative disc disease, severe orthostatic, symptomatic hypotension, on fludrocortisone, also with episodic hypertension for which she takes amlodipine and clonidine as needed, with multiple falls, more so recently, presented due to the same currently. States he had recently had assessment imaging of his back, and is working with orthospine surgeon with regards to po ssible surgical repair. Says that he has not had to take amlodipine or clonidine anytime recently as blood pressures had not been significantly elevated, although at the same time states that his blood pressures in the morning are low, in the 80s, and sometimes into the 60s. Reportedly while valeria vogt in ER was noted to have a value of systolic blood pressure as low as 50s. Received 1000 mL bolus, subsequently blood pressures noted to very high in the 200s systolic. He does report that he has not been taking his fludrocortisone recently as he felt that the blood pressures in the 80s, and sometimes even 60s are normal for him , and also is concerned that when he takes his blood pressure shoot up really high sometimes. He denies any chest pain or pressure. Has no shortness of breath. Has had no stroke symptoms noted in ER, although does report has been having more frequent falls, his legs getting weaker and him slumping down to the floor. Denies losing consciousness over these episodes. He does feel that today's episode of hypotension in ER was related to him having a very large bowel movement after being constipated for a while. Currently his blood pressure is 179/113. He takes amiodarone at home at nighttime. He is afebrile, without leukocytosis. Sodium 142. Potassium 4.9. BUN 16. Creatinine 1.3. T bili 0.5. AST 26. ALT 22. Alk phos 70. Creatine kinase 114. Baseline troponin 58. 120-minute troponin 42.8 2. 6-hour troponin 46.4. Albumin 4.1. Lactic acid initially 4.5, after 1 L fluid 1.[address]. Head [address] without acute hemorrhage or edema, no fracture. Mild atrophy. CT abdomen pelvis with contrast with no visible evidence of acute abdominal or pelvic pathologic process. Stable fusiform aneurysmal dilation of distal thoracic aorta and abdominal aorta 44 mm and 37 mm of thoracic and proximal abdominal aorta respectively, 30 mm distal abdominal aorta, moderate atherosclerosis, no visible flap or dissection. Small volume intramural thrombus (chronic). Mild diffuse bladder wall thickening, possibly secondary to partial bladder outlet obstruction or from chronic cystitis (chronic). Appendix noninflamed. No visible evidence of constipation. Review of Systems Const: Reports: other (Falls); Denies: fever(s), chills, body aches or malaise Eyes: Denies: change in vision or eye redness ENMT: Denies: throat pain, oral sores or ear or mastoid pain Card: Reports: pre-syncope (Intermittently, falls not necessarily accompanied by presyncope); Denies: chest pain, edema or dyspnea on exertion Resp: Denies: dyspnea, productive cough, change in phlegm color or hemoptysis GI: Reports: constipation; Denies: abdominal pain, nausea, vomiting, diarrhea, hematochezia or melena : Reports: difficulty urinating (Performs self catheterizations at least 3-4 times a day); Denies: flank pain, urinary frequency or hematuria Musc: Reports: back pain (Chronic); Denies: joint swelling or joint redness Skin/Breast: Denies: rash, sores or new lesions Neuro: Denies: headache(s), numbness in extremities, weakness in extremities, dizziness, confusion or seizure-like activity Endo: Denies: polyuria or polydipsia Henry/Lymph: Denies: easy bleeding or purpura All/Imm: Denies: urticaria, throat swelling or tongue swelling Medications/Allergies Home Medications Medication Instructions Recorded Confirmed Last Taken Type clonidine HCl 0.1 mg PO BID PRN #0 tab 03/11/20 12/27/20 10/03/20 Rx amlodipine 5 mg tablet 5 mg PO BID@1000,2200 PRN tab 04/23/20 12/27/20 Unknown History fludrocortisone 0.1 mg tablet 0.1 mg PO DAILY@1000 PRN tab 04/23/20 12/27/20 12/26/20 History gdvngvnvlcr-kgw-wgczmhwrj-hrb 1 tab PO DAILY@1000 05/11/20 12/27/20 12/26/20 History 149-hyalur 500 mg-500 mg-66.7 mg tablet ascorbic acid (vitamin C) 1,000 mg 1,000 mg PO Q12H 07/13/20 12/27/20 12/26/20 History tablet,extended release Neem 1 tab PO DAILY@1000 10/04/20 12/27/20 12/26/20 History aspirin [Aspir-81] 81 mg PO DAILY@1000 10/04/20 12/27/20 12/26/20 History docusate sodium [Stool Softener] 100 mg PO TID@1000,1200,2200 10/04/20 12/27/20 12/26/20 History rosuvastatin [Crestor] 10 mg PO DAILY@1000 10/04/20 12/27/20 12/26/20 History methenamine hippurate 1 gram tablet 1 g PO BID #60 tab 11/11/20 12/27/20 12/26/20 Rx pantoprazole 40 mg tablet,delayed 40 mg PO BID@1000,2200 #60 tab 12/07/20 12/27/20 12/26/20 Rx release amiodarone 200 mg tablet 200 mg PO DAILY@1000 #30 tab 12/14/20 12/27/20 12/26/20 Rx hydrocodone 7.5 mg-acetaminophen 1 tab PO TID PRN 30 Days #90 tab 12/23/20 12/27/20 12/26/20 Rx 325 mg tablet potassium chloride 10 meq PO DAILY@1000 12/27/20 12/27/20 12/26/20 History Allergies Allergy/AdvReac Type Severity Reaction Status Date / Time No Known Allergies Allergy Verified 12/23/20 11:48 PFSH Acute PFSH: Medical History Aortic embolism or thrombosis Atherosclerosis of coronary artery of [place] heart with stable angina pectoris Chronic idiopathic constipation CKD (chronic kidney disease), stage III DDD (degenerative disc disease), lumbar Diastolic CHF Dyslipidemia GERD (gastroesophageal reflux disease) Hypertension Labile blood pressure Neurogenic bladder Nocturnal enuresis Orthostatic hypotension Perforated gastric ulcer PVC (premature ventricular contraction) 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, on chronic amiod orone therapy Recurrent UTI Urinary retention Surgical History H/O esophagogastroduodenoscopy H/O exploratory laparotomy History of colonoscopy with polypectomy History of coronary artery stent placement X1 around 2018 in [place] History of heart bypass surgery 2 vessels at [facility] in [place] History of incisional hernia repair History of open heart surgery S/P tonsillectomy and adenoidectomy Status post colonoscopy 2019 Family History Other CAD (coronary artery disease) Cancer Hypertension Social History Smoking and tobacco status: current every day smoker smokeless tobacco Smokeless tobacco user: chewing tobacco Smokeless tobacco details: 1 CAN EVERY 2-3 DAYS Alcohol intake: never Caregiver/support person: No Lives independently: No Household members: family Marital status: Single Current occupational status: disabled History of recent travel: No Current gender identity: Male Vitals/I&O/Wt Last Vital Signs Temp 97.8 F 12/27/20 12:20 Pulse 84 12/27/20 17:26 Resp 16 12/27/20 17:26 BP 131/89 12/27/20 17:54 Pulse Ox 99 12/27/20 17:26 Weight last 48 hrs Weight 90.718 kg Physical Exam Const: COMMON NORMALS: no acute distress and patient oriented x3 HENMT: COMMON NORMALS: oropharynx normal Neck/C-Spine: COMMON NORMALS: no JVD Chest: OTHER: Healed sternotomy scar Resp: COMMON NORMALS: normal respiratory effort and clear to auscultation bilaterally AUSCULTATION: clear to auscultation bilaterally Cardio: COMMON NORMALS: no JVD, regular rhythm, S1 normal heart sound present, S2 normal heart sound present and No murmurs present (Cardio) RHYTHM: regular rhythm HEART SOUNDS: S1 normal heart sound present and S2 normal heart sound present GI: COMMON NORMALS: Normal to inspection, nondistended, normoactive bowel sounds present, Soft to palpation and non-tender PALPATION: Yes Soft to palpation Extremity: COMMON NORMALS: no joint enlargement GENERAL: Yes edema (Trace) Neuro: COMMON NORMALS: patient oriented x3 and moves all extremities Skin: COMMON NORMALS: no rashes or lesions noted GENERAL SKIN EXAM: no rashes or lesions noted Data : 12/27/20 12:58 12/27/20 12:58 A&P Assessment and plan (1) Labile blood pressure: Quite significantly labile blood pressure noted in ER. Due to this requested observation for additional adjustment of medications, monitoring for to stabilize. Initially blood pressures noted soft, as low as 50 systolic. Patient attributes this to having a large bowel movement after an episode of constipation. Subsequently also received received 1 L bolus of normal saline in ER. With blood pressure then noted to be going into 200s systolic. Appears at home he has not been taking fludrocortisone recently, and on the other hand has not been needing to take antihypertensives. Seems he is concerned about episodes of high blood pressure. He takes 0.1 mg for the cortisone daily as per prescription. Discussed with him a number of options. 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 Asking him he is not sure. We discussed possibility of either attempting a decreased dose of fludrocortisone, perhaps 0.1 mg once in the morning to prevent very high blood pressure spikes and help avoid blood pressures dropping down into the 60s systolic. He states that this is normal , discussed with him that although he may see these values, they are not normal, and he should be wary of them as they may lead to various organ injury. Of course discussed with him the other side risk of very high blood pressures. Discussed with him consideration of consistent treatment, perhaps with 0.05 mg for a cortisone once daily (perhaps could be extended to once every several days if needed). He does state that sometimes in the morning wakes up with low blood pressure. Says that he takes his amiodarone at night. Discussed with him consideration of transitioning amiodarone to morning time to prevent morning hypotension. Consideration may be given to whether amiodarone dose can also be decreased. Then if morning blood pressure still soft, consideration may be given to fludrocortisone at lower dose 0.05 in the morning and in the evening, although as discussed with him I believe if he takes it consistently, perhaps even if it is once every several days, he hopefully should not require additional evening doses. Discussed with him risks of supine hypertension, with both fludrocortisone, and if considering switch to midodrine. Discussed consideration of head of bed elevation with consistent therapy to reduce blood pressure spikes. At this time we will monitor blood pressures in the hospital. Will reassess again tomorrow, reassess again also orthostatic blood pressures. Discussed with him continued use of compression stockings, which he states he wears. Discussed with him also consideration of additional work-up by MRI brain. With constellation of symptoms of autonomic dysfunction, falls, neurogenic bladder, constipation, chronic fatigue, although always symptoms may be caused by conditions that are already known, something like multiple sclerosis may need to be considered as well given the constellation. Outpatient referral for MRI brain to assist with additional assessment of this was discussed with him, and he is agreeable to proceed. Status: Acute Additional A&P Information Chronic kidney disease: Appears to have chronic kidney disease, creatinine 1.3. Discussed with him. Will need additional follow-up. Troponin abnormality: Appears to be stable elevation in troponin. No chest pain. Nonspecific findings on EKG. Requesting additional assessment by TTE. Continue aspirin. Not a candidate for beta-hermann. Continue statin. Chronic/recurrent constipation: Appears to have had a large bowel movement today. No constipation visible on CT. Nurse reported this is a recurrent issue for him. Has bowel regimen already. In case of recurrent problems, given chronic opiate use, consideration may be given to peripheral opioid antagonist like naloxegol or methylnaltrexone. Neurogenic bladder: Continue self-catheterization. Follow-up with urology.Incidentally noted findings of mild urinary bladder thickening, possibly related to this. Otherwise does not have symptoms of UTI at this time. DDD/chronic back pain: Continue follow-up with orthospine, pain clinic CAD Diastolic CHF History of PVCs Chewing tobacco use Thoracic and abdominal aortic aneurysm: Please see CT findings. Stable fusiform aneurysmal dilation of distal thoracic aorta and abdominal aorta 44 mm and 37 mm of thoracic and proximal abdominal aorta respectively, 30 mm distal abdominal aorta, moderate atherosclerosis, no visible flap or dissection. Small volume intramural thrombus (chronic). Attestations Medical Necessity Statement*: Place in observation for additional assessment, optimization of medical treatment of very labile blood pressures, ranging from hypotension to severe hypertension within a short amount of time. Coding Level of Care Code Acute Iron Setter for Nena Morelos Diagnoses Labile blood pressure R09.89
--- NOTE | 2020-12-27 21:01 | PC.NURSE ---
Patient's current blood pressure is 232/128. Patient's home medications for blood pressure: Amlodipine 5 mg BID and Clonidine 0.1 mg BID. Patient states he only takes them when he needs them and does not take them twice a day. Patient states that he has been doing self-catheterization at home to urinate for 2 years. Patient states he did not bring his supplies with him. Dr. Delgado notified. Ordered to give home dose of Amlodipine and Clonidine now. Ordered to straight cath PRN.
[2020-12-27] MEDS: pantoprazole DR 40 mg Tablet PO (21:10)
[2020-12-27] MEDS: cloNIDine 0.1 mg Tablet PO (21:10)
[2020-12-27] MEDS: docusate sodium 100 mg Capsule PO (21:10)
[2020-12-27] MEDS: amlodipine 5 mg Tablet PO (22:27)
--- NOTE | 2020-12-27 22:47 | PC.NURSE ---
Patient assisted to bedside commode with one assist. Patient did well. Patient states that he gets dizzy every time he gets up. Patient is alert and oriented x4. Patient educated not to get up without assistance and verbalized understanding. Call light within reach. Patient oriented to room and call light. Will monitor.
[2020-12-28] VITALS (11 sets, daily range): BP systolic 77–179; BP diastolic 49–96; PULSE 59–78; RESP 20–33; TEMP 36.6–36.9; O2SAT 94–96
--- NOTE | 2020-12-28 00:46 | PC.NURSE ---
Patient states that he has not been able to take care of herself at home as he used to be able too. He states he lives with his 80 year old mother whom he helps take care of.
[2020-12-28 06:04] LABS: Anion Gap 14.2 (5-19); Blood Urea Nitrogen 17 mg/dL (8-23); Calcium 8.3 mg/dL (8.5-10.5); Carbon Dioxide 24 mmol/L (22-29); Chloride 106 mmol/L (98-107); Glomerular Filtration Rate 75.2 mL/min (90-130); Glucose 88 mg/dL (65-115); Osmolality Calculated 291 mOsm/kg (285-295); Potassium 4.2 mmol/L (3.5-5.1); Sodium 140 mmol/L (136-145)
[2020-12-28 06:07] LABS: Thyroid Stimulating Hormone 0.01 uIU/mL (0.27-4.20)
--- NOTE | 2020-12-28 08:50 | PC.CHAP ---
Pastoral Care Encounter/Spiritual Assessment Type of Contact [] Declined senior vice president and chief information officer visit [] Patient/Family/Request visit [] Outpatient visit [] Follow-up visit [] Physician referral [] Code/Alert [x] Routine visit [] Staff referral [] Actively dying [] Patient sleeping [] Family support [] [] Out of room [] Palliative care [] [] Receiving care in room [] Pre-surgical visit [] Trauma [] Long length of stay [] ICU visit [] Other: Relational/Emotional Strength [x] Patient feels connected with others/family/visitors/staff [] Distress [] Loneliness/isolation [] Abandonment Spirituality of Patient [x] Person of Kaitlyn [] Attends Sikhism of their Kaitlyn [x] Believes in Prayer [] Reads Bible or Buddhism materials [] There are Spiritual issues to be addressed [employer] [x] Prayer [x] Active listening [x] Non-anxious presence [x] Spiritual/emotional support [] Crisis/trauma care [] Spiritual counseling [] Bereavement support [] Provided bereavement packet [] Provided Bible/devotional materials [] Provided toy/stuffed animal, coloring book to patient or family member [] Provided Communion [] Anointing/[place] [] Salvation [x] Completed spiritual assessment [] Other: Impact on Illness or Injury [] Angry [] Fearful [x] Anxious [] Often cries [] Exhaustion [] Unable to work [] Unable to attend mormonism [] Unable to walk/stand [] Unable to read [] Unable to drive [] Unable to eat/drink [] Unable to sleep [] Unable to be with family [] Patient intubated [] Other: Summary Pt lives with elderly mother so he is worried his illness will become a burden upon her. He has family which can step in if he is unable. Pt has limited outside support. He does have his mother and a local brother but he has no contact with two adult daughters. His main concern is to become healthy enough to care for his mother until her passing. He describes his family as spiritual but not attending services at this time, although his mother was a missionary for a number of years. His father at an early age and Pt was only 18 years old. He helped support his mother for a time after his father's . He requested prayer. Time spent with patient 15m
[2020-12-28] MEDS: aspirin 81 mg EC Tablet PO (11:18)
[2020-12-28] MEDS: pantoprazole DR 40 mg Tablet PO (11:18)
[2020-12-28] MEDS: atorvastatin 40 mg Tablet PO (11:18)
[2020-12-28] MEDS: amiodarone 200 mg Tablet PO (11:19)
[2020-12-28 16:34] LABS: Free T4 Free Thyroxine 3.31 ng/dL (0.82-1.77); T3 Free 3.9 PG/ML (2.0-4.4)
--- NOTE | 2020-12-28 19:37 | PM.DCS ---
Discharge Providers Date of Admission: 12/27/20 17:50 Date of Discharge: December 28, 2020 Attending Provider at Admission: Javier Trejo Attending Provider at Discharge: Javier Trejo Primary Care Provider: Valencia Laureano DO Diagnoses at Discharge Discharge Diagnosis (1) Labile blood pressure: Status: Acute Reason for Visit Reason for Visit: FALL Hospital Course Hospital Course Very pleasant 65 old gentleman with history of CAD, CABG [address] [facility], status post coronary angioplasty and stenting in [facility], recurrent constipation, neurogenic bladder requiring self catheterizations, chronic back pain with degenerative disc disease, severe orthostatic, symptomatic hypotension, on fludrocortisone, also with episodic hypertension for which she takes amlodipine and clonidine as needed, with multiple falls, more so recently, presented due to the same. His falls are mostly slumping down to the floor with his legs getting weaker. He denies that the falls usually are preceded by presyncopal or syncopal symptoms. His blood pressures do fluctuate significantly, sometimes low in the morning. He states that they may be as low as the sixties systolic sometimes. Not uncommonly in the eighties. Other times if he takes fludrocortisone blood pressures will rise very high. This appears to been somewhat observed in the ER where initially blood pressures were noted low, as low as reportedly fifties, although I do not see this recorded. He received 1 L bolus there. Subsequently blood pressures went up into two hundreds systolic. He did attribute to lower blood pressures at that time to copious bowel movements he has been having after stopping hydrocodone entirely. He subsequently had an episode of loose stool, but thereafter it is forming up. He was monitored in the hospital due to fluctuating blood pressures. His troponin was mildly-moderately elevated, but stable, and he had no chest pain, or suggestions of acute NE. No arrhythmia was noted. CT abdomen pelvis on presentation was assessed with noted incidentally stable fusiform aneurysmal dilation of distal thoracic aorta and abdominal aorta, 44 mm thoracic, and 37 mm proximal abdominal and 30 mm distal abdominal aorta. Incidentally noted mild diffuse bladder wall thickening could be secondary to partial bladder outlet obstruction. He does have to self catheterize himself, and also at least 3-4 times a day, sometimes up to 6. Chronic cystitis is a possibility, although he did not have urinary symptoms or suggestion of UTI otherwise. TSH was checked, and is low at 0.01. Free T4 3.31. Free T3 3.9. We discussed with him concerns regarding low blood pressures. He had stated that blood pressures in the eighties, and sometimes into the sixties systolic is normal for him . Discussed with him that even though he may be seen his evaluation this should not be normal for him, and he appears to be at risk of organ injury. In fact he came in with creatinine 1.3. Is not clear whether this is chronic kidney disease as his creatinines appear to be in the 1.3-1.5 range. It did improve, however, today down to 1. May have component of acute kidney injury. It appears he has been reluctant to take his fludrocortisone in the mornings due to blood pressures randomly increasing in the afternoons, and sometimes more so with fludrocortisone. We discussed different strategies to try to optimize his medication regimen and reduce blood pressure variation. He reports that he takes his amiodarone 200 mg in the evening. He has not really had to use his as needed blood pressure medications since not using the fludrocortisone. But this appears to be at the expense of blood pressures dropping down to low at the lower end. As discussed with him to avoid very low blood pressures he is encouraged to continue fludrocortisone, if needed for now we will cut the dose in half to 0.05, and he is encouraged to monitor blood pressure strictly. If blood pressures are low in the evening or the following morning to take additional 0.05 fludrocortisone at that point. Otherwise if blood pressures are high we discussed he does not have to take fludrocortisone every day, and if blood pressures are maintaining he may take it every other day to prevent very high peaks. We discussed also maintaining his bed at some slight elevation, possibly about 30 degrees to prevent overly high supine blood pressures. We discussed other alternatives, consideration of possibly switching to midodrine, as it appears he has never tried that, although we discussed it likely may have very similar adverse effects as well. At the same time he will take his amiodarone in the morning instead of the evening to prevent morning hypotension. As well he will decrease amiodarone dose to 100 mg. We discussed the strategy with his pharmacy operations specialist as well, she agrees. He also appears to have developed thyroid dysfunction, with TSH lower at 0.01, free T4 mildly elevated at 3.31. Free T3 3.9. Possibly related to amiodarone. With amiodarone decreased, please reassess thyroid function. During hospitalization he was also assessed by head CT, which showed no intracranial hemorrhage or edema, no skull fracture, mild atrophy. He was also assessed by TTE. Please follow-up final results as these are not yet available. Per discussion with cardiology preliminary results showed diastolic dysfunction, mild to moderate aortic stenosis. Discussed with him as well as his pharmacy operations specialist. Please continue chronic follow-up regarding aortic stenosis. Please follow-up his renal function. He is asked to continue self-catheterization frequently. Follow-up with urology. He is asked to resume follow-up with orthopedic surgery regarding degenerative disease of the spine. Due to a somewhat concerning constellation of symptoms, with chronic fatigue, recurrent falls, lower extremity weakness, neurogenic bladder, recurrent constipation, autonomic dysregulation, tremors as per discussion with him additional consideration may be given to a condition like multiple sclerosis, although these findings appear to possibly have good explanations otherwise. He is agreeable for additional assessment with MRI of the brain for which he is referred. Please follow-up with him regarding the test on the results. Consider referral to neurology. Consider additional work-up depending on symptoms and findings. Physical Exam Const: COMMON NORMALS: no acute distress, patient oriented x3 and alert GENERAL APPEARANCE: cooperative and comfortable ORIENTATION/CONSCIOUSNESS: Yes awake OTHER: Denies any complaints. No pain or discomfort. No dizziness or lightheadedness. No presyncope. No falls. Has gotten up several times a day. Wants to return home with outpatient follow-up. HENMT: COMMON NORMALS: oropharynx normal Neck/C-Spine: COMMON NORMALS: no JVD Chest: OTHER: Healed sternotomy scar Resp: COMMON NORMALS: normal respiratory effort and clear to auscultation bilaterally AUSCULTATION: clear to auscultation bilaterally Cardio: COMMON NORMALS: no JVD, regular rhythm, S1 normal heart sound present, S2 normal heart sound present and No murmurs present (Cardio) RHYTHM: regular rhythm HEART SOUNDS: S1 normal heart sound present and S2 normal heart sound present GI: COMMON NORMALS: Normal to inspection, nondistended, normoactive bowel sounds present, Soft to palpation and non-tender PALPATION: Yes Soft to palpation Extremity: COMMON NORMALS: no joint enlargement GENERAL: Yes edema (Trace) Neuro: COMMON NORMALS: patient oriented x3 and moves all extremities SENSORIUM/ORIENTATION: Yes alert Skin: COMMON NORMALS: no rashes or lesions noted GENERAL SKIN EXAM: no rashes or lesions noted Discharge Data Data Completed and Pending: Completed Studies During Hospitalization Category Date Time Status CT abdomen pelvis w con* [id number] Stat Cat Scan 12/27/20 16:[address] head wo con* [id number] Urgent Cat Scan 12/27/20 12:34 Completed Pending at discharge Category Date Time Status Basic Metabolic P saleem AM LABS Lab 12/29/20 04:00 Ordered Basic Metabolic P saleem AM LABS Lab 12/30/20 04:00 Ordered CV echo complete* [id number] Routine Ultrasound 12/28/20 20:03 Taken Labs from last 24 hours 12/28/20 12/28/20 12/28/20 04:15 04:15 04:15 Sodium 140 Potassium 4.2 Chloride 106 Carbon Dioxide 24 Anion Gap 14.2 BUN 17 Creatinine 1.0 GFR Calculation 75.2 L Glucose 88 Calculated Osmolal ity 291 Calcium 8.3 L TSH 0.01 L Free T4 3.31 H Free T3 3.9 Vitals: Last Vital Signs Temp 98.5 F 12/28/20 15:41 Pulse 78 12/28/20 19:06 Resp 24 H 12/28/20 19:06 BP 80/53 12/28/20 19:06 Pulse Ox 96 12/28/20 17:43 Discharge Plan Discharge Patient Disposition: Home Condition: Stable Prescriptions: Continued amlodipine 5 mg tablet 5 mg PO BID@1000,2200 PRN (Reason: unknown) RF: 0 [id number] [Bpdhsj-Butmf-LZV (with antiox)] 500-500-66.7 mg tablet 1 tab PO DAILY@1000 RF: 0 ascorbic acid (vitamin C) 1,000 mg tablet extended release 1,000 mg PO Q12H RF: 0 hydrocodone-acetaminophen 7.5-325 mg tablet 1 tab PO TID PRN (Reason: pain) 30 Days Qty: 90 RF: 0 methenamine hippurate 1 gram tablet 1 g PO BID Qty: 60 RF: 12 pantoprazole 40 mg tablet,delayed release (DR/EC) 40 mg PO BID@1000,2200 Qty: 60 RF: 5 clonidine HCl 0.1 mg tablet 0.1 mg PO BID PRN (Reason: Systolic BP > 180 mmhg) Qty: 0 RF: 0 aspirin 81 mg Tablet,Delayed Release (Dr/Ec) 81 mg PO DAILY@1000 RF: 0 Neem 1 tab PO DAILY@1000 RF: 0 docusate sodium [Stool Softener] 100 mg capsule 100 mg PO TID@1000,1200,2200 RF: 0 rosuvastatin [Crestor] 10 mg tablet 10 mg PO DAILY@1000 RF: 0 potassium chloride 10 mEq tablet extended release 10 meq PO DAILY@1000 RF: 0 Changed amiodarone 200 mg tablet 100 mg PO DAILY@1000 Qty: 30 RF: 0 fludrocortisone 0.1 mg tablet 0.05 mg PO DAILY@1000 PRN (Reason: unknown) Qty: 0 RF: 0 Discharge Orders: Discharge Order (Routine); Ordered 12/28/20 Ordered By: Jvaier Trejo Other Ambulatory Orders: MR head wo/w con [id number] (Routine) Timeframe: 3 Days Facility: [facility] - Location: Rad[facility] Ordered By: Javier Treoj Referrals: [facility] [Other] Valencia Laureano DO [Primary Care Provider] - 4-7 days ([facility] will contact you to schedule an follow-up appointment in 4 to 7 days. If you haven't heard from them by morning. Please call ) Latesha Urbano MD [Physician] - 2 weeks ([facility] will contact you to schedule an follow-up appointment in 2 weeks. If you haven't heard from them by morning. Please call ) Discharge Diet: Regular and Soft Mechanical Discharge Activity: Increase activity as tolerated and Limit activity as instructed Patient Instructions: Hypotension (DC), Fall Prevention (GEN) Activity Restrictions/Additional Instructions: Please continue to monitor your blood pressures closely at home, both laying down and sitting up and standing. Please avoid blood pressures at any time lower than 80 upper number, lower than 50 lower number. Very low blood pressures can lead to organ injury. Please take fludrocortisone Half tablet, 0.05 mg in the morning. Recheck blood pressures in the evening, the next morning, if blood pressures are elevated, above 150 top number, do not take fludrocortisone again until the next morning. If blood pressures are low either at night or in the morning, take additional 0.05 mg fludrocortisone. Please switch taking amiodarone to the morning. Reduce amiodarone dose to 100 mg. Please note also your amiodarone is decreased in addition because we are seeing it may be affecting your thyroid function. Your TSH is low, 0.01, free T4 elevated at 3.31. Please follow-up with your primary care doctor for thyroid function reassessment after decreasing amiodarone dose. Please discuss with your pharmacy operations specialist as well. Please discuss with your pharmacy operations specialist also regarding noted aortic stenosis on echocardiogram. Please maintain very strict orthostatic precautions, rising slowly from laying to sitting, slowly from sitting to standing, gaining your balance and making sure you are not getting lightheaded before moving off. Please maintain your walker at with you at all times. In case you get lightheaded or weak, please sit down or lie down immediately. Resume follow-up with your orthopedic surgeon. Continue urinary bladder self-catheterization as previously. Continue follow-up with urology. Please discuss with your heart doctor and your primary doctor follow-up regarding incidentally noted small abdominal aortic aneurysm which will need long-term follow-up. Please follow-up with your primary care doctor and discuss regarding chronic kidney disease. Discharge Attestations Time Spent in Discharge Care*: greater than 30 min Quality Metrics Clinical Quality Measures During this hospital stay, did patient experience: None Coding Level of Care Code Acute Joshg FW JEISON note Diagnoses Labile blood pressure R09.89
--- NOTE | 2020-12-28 20:03 | USCV_ITS ---
Cali Turner Age: 65 Gender: M : 1955 Exam Date: 12/28/2020 06:21 Ordering Phys: Javier Trejo MD Technologist: Carole Maradiaga Exam Location: [facility] – [place] Indication: FALLS, BP FLUCTUATION BP: 122 / 86 HR: 37 Rhythm: Sinus Technical Quality: Fair MEASUREMENTS (Male / Female) Normal Values 2D ECHO LV Diastolic Diameter PLAX 4.9 cm 4.2 - 5.9 / 3.9 - 5.3 cm LV Systolic Diameter PLAX 4.1 cm LV Chamber Size 4.9 cm IVS Diastolic Thickness 1.3 cm 0.6 - 1.0 / 0.6 - 0.9 cm IVS Systolic Thickness 1.7 cm LVPW Diastolic Thickness 0.7 cm 0.6 - 1.0 / 0.6 - 0.9 cm LVPW Systolic Thickness 0.9 cm RV Chamber Size 3.3 cm LVOT Diameter 2.0 cm LV Ejection Fraction 2D Teich 30.5 % LV Ejection Fraction MOD 2C 51.8 % LV Ejection Fraction 2C AL 50.7 % LA Diameter 4.2 cm LA Width 3.0 cm LA Height 4.2 cm RA Width 2.4 cm RA Height 4.3 cm Aorta at Sinotubular Diameter 3.2 cm M-MODE LV Diastolic Diameter MM 5.5 cm 4.2 - 5.9 / 3.9 - 5.3 cm LV Systolic Diameter MM 4.2 cm LV Ejection Fraction MM Teich 47.6 % IVS Diastolic Thickness MM 0.8 cm 0.6 - 1.0 / 0.6 - 0.9 cm IVS Systolic Thickness MM 0.7 cm LVPW Diastolic Thickness MM 1.1 cm 0.6 - 1.0 / 0.6 - 0.9 cm LVPW Systolic Thickness MM 1.3 cm Aortic Annulus Diameter 3.1 cm LA Ao Ratio MM 1.6 MV E Point Septal Separation 0.8 cm DOPPLER AV Peak Velocity 237.0 cm/s LVOT Peak Velocity 142.0 cm/s AV Area Cont Eq vti 1.7 cm squared AV Area Cont Eq pk 1.9 cm squared MV Area PHT 2.7 cm squared Mitral E to A Ratio 1.0 MV E' Velocity 59.0 cm/s Mitral E to MV E' Ratio 17.1 Mitral E to LV E' Lateral Ratio 15.1 Mitral E to LV E' Septal Ratio 20.3 TR Peak Velocity 162.2 cm/s TR Peak Gradient 10.5 mmHg TR Mean Velocity 124.8 cm/s TR Mean Gradient 6.6 mmHg TR Velocity Time Integral 41.1 cm Right Atrial Pressure 3.0 mmHg Pulmonary Artery Systolic Pressu 13.5 mmHg PV Peak Velocity 104.0 cm/s RV Acceleration Time 0.1 s RV Ejection Time 0.3 s RV AcT/ET 0.3 FINDINGS Left Ventricle Normal left ventricular size. LV systolic function is normal with EF of 55-60%.No regional wall motion abnormalities. Grade 2 diastolic dysfunction Right Ventricle The right ventricle is normal in size and function. Right Atrium The right atrium is normal in size. Left Atrium The left atrium is normal in size. Mitral Valve Structurally normal mitral valve without significant stenosis or prolapse. There is mild mitral regurgitation. Aortic Valve Aoric valve is thickened. There is mild aortic stenosis with ELLA of 1.49cm2 and mean gradient across the valve of 13.5mmHg. There is no aortic regurgitation. Tricuspid Valve Structurally normal tricuspid valve without significant stenosis or regurgitation. Insufficient TR jet to calculate RVSP Pulmonic Valve Structurally normal pulmonic valve without significant stenosis. There is no pulmonic regurgitation. Pericardium Normal pericardium without effusion. Aorta Normal ascending aorta dimension. CONCLUSIONS LV systolic function is normal with EF of 55-60% Grade 2 diastolic dysfunction Mild aortic stenosis with ELLA of 1.49cm2 and mean gradient across the valve of 13.5mmHg Mild mitral regurgitation. Compared to prior echocardiogram from 05/17/2018, no significant changes are noted Adams Person MD (Electronically Signed) Final Date: 29 December 2020 19:58 S
--- NOTE | 2021-01-03 18:10 | PC.RESP ---
Smoking Cessation information sent to patient.
== END 2020-12-28 19:46 | disposition home or self-care (01) ==
LOC: ER 14:40 → CSU 18:03
PROVIDERS: Admitting Provider Internal Medicine; Emergency Provider Family Medicine; PCP Family Medicine; Visit Provider Internal Medicine
DX: R09.89 Other specified symptoms and signs involving the circulatory and respiratory systems (principal); G90.9 Disorder of the autonomic nervous system, unspecified; K59.09 Other constipation; N31.9 Neuromuscular dysfunction of bladder, unspecified; Z91.81 History of falling; I25.10 Atherosclerotic heart disease of native coronary artery without angina pectoris; Z95.5 Presence of coronary angioplasty implant and graft; Z79.82 Long term (current) use of aspirin; I13.0 Hypertensive heart and chronic kidney disease with heart failure and stage 1 through stage 4 chronic kidney disease, or unspecified chronic kidney disease; N18.30 Chronic kidney disease, stage 3 unspecified; I50.30 Unspecified diastolic (congestive) heart failure; F17.220 Nicotine dependence, chewing tobacco, uncomplicated
CPT/HCPCS: 36415; 51702; 70450; 74177; 80048; 80053; 82550; 83605; 84439; 84443; 84481; 84484; 85025; 93005; 93306; 96360; 99285; G0378; J7030; Q9967

== ENCOUNTER → 2021-01-07 11:23 | Outpatient (BNVA) | payer MEDICAID, SELFPAY | PROVIDERS: PCP Family Medicine; Visit Provider Orthopaedic Surgery | DX: Z01.812 Encounter for preprocedural laboratory examination (principal); Z20.822 Contact with and (suspected) exposure to COVID-19; I10 Essential (primary) hypertension; E78.5 Hyperlipidemia, unspecified; Z79.899 Other long term (current) drug therapy | CPT/HCPCS: 80048; 84439; 84443; 84480; 87635 ==

== ENCOUNTER 2021-01-12 13:38 | Day surgery (SDC) | payer MEDICAID, SELFPAY ==
[2021-01-10 08:37] VITALS: BMI 33.9
--- NOTE | 2021-01-10 08:48 | ECG_ITS ---
[facility] Test Date: 2021-01-10 Pat Name: Cali Turner Department: Room: Gender: Male Special [employer]: : 1955 Requested By: Tracy Henry Order Number: [id number] Fritz MD: Latesha Urbano M.D. Measurements Intervals [place] Rate: 61 P: 22 NE: 184 QRS: -5 QRSD: 106 T: 43 QT: 441 QTc: 444 Interpretive Statements SINUS RHYTHM POSSIBLE LEFT ATRIAL ENLARGEMENT [-0.1mV P WAVE IN V1/V2] NONSPECIFIC ST & T-WAVE ABNORMALITY Compared to ECG 12/27/2020 18:30:26 No significant changes Electronically Signed On 01-11-2021 17:39:16 CDT by Latesha Urbano M.D. [email or web address]
--- NOTE | 2021-01-10 09:08 | ANES.PREANE2 ---
Pre-Anesthetic Assessment Pre-Anesthetic Assessment: Height/Weight: Height 1.68 m Weight 95.254 kg Preop Diagnosis: lumbar stenosis Proposed Procedure: Operation Date: 01/12/21 11:00 Proposed Procedures p Lumbar Spine Decompression L4/5 L5/S1 [id number] M48.062(Not Applicable) - Boyd De Santiago DO Familial anesthetic complications: NOne Social: Social History: Tobacco and No alcohol Exam: Pre-Anes Outpt Exam: alert, oriented x 3, clear to auscultation bilaterally and regular rate & rhythm Airway: Cervical ROM: WNL MP: 2 Dentition: False CV/HEM: CV/HEM: Arrythmia, CAD, CHF, HTN and MA Comments: autonomic labilitiy/orthostatic hypotension, paroxysmal hypertension : : Chronic renal Insufficiency Comments: self-catheterize GI: GI: GERD Metabolic: Metabolic: Thyroid Anesthetic Plan: ASA status: 4 Anesthesia: General Risk of > 500 ml blood loss (7ml/kg in children): No PFSH Anesthesia PFSH: Medical History Aortic embolism or thrombosis Atherosclerosis of coronary artery of [place] with stable angina pectoris Chronic idiopathic constipation CKD (chronic kidney disease), stage III DDD (degenerative disc disease), lumbar Diastolic CHF Dyslipidemia GERD (gastroesophageal reflux disease) Hypertension Labile blood pressure Neurogenic bladder Nocturnal enuresis Orthostatic hypotension Perforated gastric ulcer PVC (premature ventricular contraction) 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, on chronic amiodorone therapy Recurrent UTI Urinary retention Surgical History H/O esophagogastroduodenoscopy H/O exploratory laparotomy History of colonoscopy with polypectomy History of coronary artery stent placement X1 around 2018 in [place] History of heart bypass surgery 2 vessels at [facility] in [place] History of incisional hernia repair History of open heart surgery S/P tonsillectomy and adenoidectomy Status post colonoscopy 2019 Family History Other CAD (coronary artery disease) Cancer Hypertension Social History Smoking and tobacco status: current every day smoker smokeless tobacco Smokeless tobacco user: chewing tobacco Smokeless tobacco details: 1 CAN EVERY 2-3 DAYS Alcohol intake: never Caregiver/support person: No Lives independently: No Household members: family Marital status: Single Current occupational status: disabled History of recent travel: No Current gender identity: Male Data Anesthesia Cardiac Studies: No Data to Display
[2021-01-12] VITALS (7 sets, daily range): BP systolic 98–141; BP diastolic 59–84; PULSE 67–83; RESP 16–18; TEMP 36.2–36.3; O2SAT 93–100
--- NOTE | 2021-01-12 | SCC_ITS ---
Procedure Done: 1. L4/5 Laminectomy and partial facetectomy on left 2. L5/S1 laminectomy and partial facetectomy on left 16.2 seconds of fluoroscopic guidance, for a cumulative dose of 8.13 mGy, was provided to Dr. De Santiago by the radiology department. C-arm images of the lumbar spine were saved for the patient's permanent record. [facility]
--- NOTE | 2021-01-12 13:44 | W.PM.OPSUD ---
Surgery/Procedure H&P Update DATE OF PROCEDURE: January 12, 2021 DATE H&P PERFORMED: 01/12/21 PREOP DIAGNOSIS: lumbar stenosis PLANNED PROCEDURE: Operation Date: 01/12/21 15:25 Proposed Procedures p Lumbar Spine Decompression L4/5 L5/S1 [id number] M48.062(Not Applicable) - Boyd De Santiago DO
--- NOTE | 2021-01-12 13:45 | PM.HP ---
Providers/Chief Complaint Primary Care Provider: Valencia Laureano DO Chief Complaint: lumbar decompression History of Present Illness Cali Turner is a 65 year old male New 65 year old male here for evaluation of low back pain. Chief Complaint: low back pain Onset: years Duration:years Characteristics: sharp, stabbing, constant Severity: 5/10 Location: low back Radiating symptoms: left leg posterior, bilateral hip with the left being worse s Aggravating factors: standing, walking Alleviating factors: sitting Neuro deficits: denies incontinence of bowel/bladder, saddle anesthesia. Prior tx:currently in physical therapy with no improvement, Injection with no relief, Review of Systems Narrative: General: Reports: 10 or more systems reviewed and unremarkable except as noted in History and below Const: Denies: fever(s) or chills Eyes: Denies: change in vision ENMT: Denies: throat pain Card: Denies: chest pain or dyspnea on exertion Resp: Denies: dyspnea, productive cough or wheezing GI: Denies: abdominal pain, nausea or vomiting Musc: Reports: limited range of motion Skin/Breast: Denies: changes in skin color or dry skin Neuro: Reports: numbness in extremities and weakness in extremities Psych: Denies: anxiety Henry/Lymph: Denies: easy bruising or easy bleeding Medications/Allergies Home Medications Medication Instructions Recorded Confirmed Last Taken Type clonidine HCl 0.1 mg PO BID PRN #0 tab 03/11/20 01/10/21 10/03/20 Rx amlodipine 5 mg tablet 5 mg PO BID@1000,2200 PRN tab 04/23/20 01/10/21 Unknown History lavfxjulicd-luf-sqfqmfiax-hrb 1 tab PO DAILY@1000 05/11/20 01/10/21 12/26/20 History 149-hyalur 500 mg-500 mg-66.7 mg tablet ascorbic acid (vitamin C) 1,000 mg 1,000 mg PO Q12H 07/13/20 01/10/21 12/26/20 History tablet,extended release Neem 1 tab PO DAILY@1000 10/04/20 01/10/21 12/26/20 History aspirin 81 mg PO DAILY@1000 10/04/20 01/10/21 12/26/20 History rosuvastatin [Crestor] 10 mg PO DAILY@1000 10/04/20 01/10/21 12/26/20 History pantoprazole 40 mg tablet,delayed 40 mg PO BID@1000,2200 #60 tab 12/07/20 01/10/21 12/26/20 Rx release hydrocodone 7.5 mg-acetaminophen 1 tab PO TID PRN 30 Days #90 tab 12/23/20 01/10/21 12/26/20 Rx 325 mg tablet potassium chloride 10 meq PO DAILY@1000 12/27/20 01/10/21 12/26/20 History amiodarone 100 mg PO DAILY@1000 #30 tab 12/28/20 01/10/21 12/26/20 Rx fludrocortisone 0.05 mg PO DAILY@1000 PRN #0 tab 12/28/20 01/10/21 12/26/20 Rx docusate sodium 100 mg capsule 100 mg PO TID@1000,1200,2200 #90 01/10/21 Unknown Rx cap methenamine hippurate [Hiprex] 1 g PO BID 01/10/21 01/10/21 Unknown History Allergies Allergy/AdvReac Type Severity Reaction Status Date / Time No Known Allergies Allergy Verified 01/07/21 13:24 PFSH Acute PFSH: Medical History Aortic embolism or thrombosis 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 Chronic idiopathic constipation CKD (chronic kidney disease), stage III DDD (degenerative disc disease), lumbar Diastolic CHF Dyslipidemia GERD (gastroesophageal reflux disease) Hypertension Labile blood pressure Neurogenic bladder Nocturnal enuresis Orthostatic hypotension Perforated gastric ulcer PVC (premature ventricular contraction) 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[place], on chronic amiodorone therapy Recurrent UTI Urinary retention Surgical History H/O esophagogastroduodenoscopy H/O exploratory laparotomy History of colonoscopy with polypectomy History of coronary artery stent placement X1 around 2018 in [place] History of heart bypass surgery 2 vessels at [facility] in [place] History of incisional hernia repair History of open heart surgery S/P tonsillectomy and adenoidectomy Status post colonoscopy 2019 Family History Other CAD (coronary artery disease) Cancer Hypertension Social History (Reviewed 01/07/21 @ 13:35 by KHOI Ram Smoking and tobacco status: current every day smoker smokeless tobacco Smokeless tobacco user: chewing tobacco Smokeless tobacco details: 1 CAN EVERY 2-3 DAYS Alcohol intake: never Caregiver/support person: No Lives independently: No Household members: family Marital status: Single Current occupational status: disabled History of recent travel: No Current gender identity: Male Physical Exam Narrative: EXAM NARRATIVE: EXAM NARRATIVE: CONSTITUTIONAL: The patient is normal appearing, well groomed, cooperative and in no apparent distress. GENERAL: Patient in no acute distress. Well nourished. CARDIAC: Regular rate and rhythm. CHEST: Normal inspiratory effort, normal respiratory rate. ABDOMEN: Soft and non-tender. SKIN: Clear, warm and intact. NEURO?PSYCH: The patient is alert and oriented to person, place and time. NEUROVASCULAR: Upper Extremity Sensory - SILT. Motor Strength: Shoulder abduction C5: 5/5; Wrist extension C6: 5/5; Elbow extension C7: 5/5; Hand Centrifugal Station Operator C8: 5/5; Finger abduction T1: 5/5. Radial/ Ulnar/ Median in intact Lower Extremity Sensory - SILT. Motor Strength: Hip flexion L2/3; Ant/inner thigh: 5/5; Hip adduction L2/3: 5/5; Knee extension L4 Lat thigh: 5/5; Toe dorsiflexion L5: 5/5; Ankle dorsiflexion L5/ S1: 5/5; Plantar flexion S1: 5/5. DTR: Triceps 2+; Brachioradialis 2+; Patellar 2+; Achilles 2+. MUSCULOSKELETAL: UPPER EXTREMITIES: The patient had full active ROM in fingers, wrist, elbow, and shoulder. The patient demonstrated ability to fully flex/extend/abduct/adduct fingers, make ok sign, cross 2nd/3rd digits, extend 1st digit fully.. Radial pulse 2+, CR<2 seconds. LOWER EXTREMITIES: Pt has full, active ROM of toes, ankle, knee, and hip. Dorsalis pedis & posterior tibialis pulses 2+, CR<2 seconds. SPINE: Skin warm, dry, intact. 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
--- NOTE | 2021-01-12 14:22 | P.ANESUD_ITS ---
Pre-Anesthetic Update Pre-Anesthetic Assessment: Date of Surgery/Procedure: 01/12/21 Preop Cordelia gnosis: lumbar stenosis Proposed Procedure: Operation Date: 01/12/21 15:25 Proposed Procedures p Lumbar Spine Decompression L4/5 L5/S1 81238 [id number] M48.062(Not Applicable) - Boyd De Sanitago, DO Any changes to Pre-Anesthetic Assessment?: No Last Intake: > 8 hrs Vitals: Temperature 97.1 F L 01/12/21 13:55 Temperature Source Temporal Artery S can 01/12/21 13:55 Pulse Rate 67 01/12/21 13:55 Respiratory Rate 18 01/12/21 13:55 Blood Pressure 140/84 01/12/21 13:55 Blood Pressure Gail n 102 01/12/21 13:55 Pulse Oximetry 99 01/12/21 13:55 Oxygen Delivery Me thod 01/12/21 13:52 Exam: Pre-Anes Outpt Exam: alert, oriented x 3, clear to auscultation bilaterally and regular rate & rhythm Cardiac Studies: No Data to Display
--- NOTE | 2021-01-12 16:06 | XR_ITS ---
WS: [id number] Lumbar spine, C-arm fluoroscopy, 01/12/2021 Clinical Data: LUMBAR DECOMPRESSION Comparison: Lumbar spine, 12/16/2020. Findings: A decompression of L4-L5 is performed by Dr. De Santiago. XR/XR lumbar spine 1V [id number] Impression: Lumbar decompression at L4-L5.
--- NOTE | 2021-01-12 16:11 | PM.OP ---
Operative Report Date of procedure: January 12, 2021 Pre-op Diagnosis: lumbar stenosis Post-op diagnosis: same Procedure Done: 1. L4/5 Laminectomy and partial facetectomy on left 2. L5/S1 laminectomy and partial facetectomy on left Surgeon: Boyd De Santiago Anesthesia: General Estimated blood loss (mL): 20 Condition: stable Disposition: PACU Procedure: 1. L4/5 Laminectomy and partial facetectomy on left 2. L5/S1 laminectomy and partial facetectomy on left Patient is brought to the operative suite. After undergoing anesthesia they are placed in the supine position. All areas of impingement are well padded. Patient is then prepped and draped in the normal sterile fashion. A skin incision is made over the L4/5 level. This is confirmed under c-arm guidance. A series of dilators are passed and the tubular retractor is docked on the L for lamina. A bovie is used to clear the soft tissue off the lamina and the L 4/ 5 facet joint. A high speed mirela is then used to perform the laminectomy and take down the medial aspect of the L 4/ 5 facet joint. A kerrison rongeure was then used to take down the remaining lamina and smooth the edge of the laminectomy up to the point where the ligamentum flavum attaches. Attention was then brought to the medial aspect of the facet joint. The remaining medial aspect of the superior and inferior aspect of the facet joint were taken down with the kerrison from the pedicle of L4 to L 5. The facet joint had significant hypertrophy. Attention was then brought to the Ligamentum Flavum. The ligament was taken down from the lamina of L4 to L5 and out medially to the remaining facet joint. The ligament was thick. The dura was then exposed. The dura was in good repair. The L4 nerve was then traced with a curette out the L4/5 foramen and found to be adequately decompressed. The L5 nerve was traced with a curette around the L5 pedicle. The lateral recess was opened with a kerrison helping to further decompress the L5 nerve. Wound is then irrigated copiously with saline and surgiflo is used to stop any bleeding. The tubular retractor is removed A skin incision is made over the L5/S1 level. This is confirmed under c-arm guidance. A series of dilators are passed and the tubular retractor is docked on the L5 lamina. A bovie is used to clear the soft tissue off the lamina and the L 5/S1 facet joint. A high speed mirela is then used to perform the laminectomy and take down the medial aspect of the L 5/S1 facet joint. A kerrison rongeure was then used to take down the remaining lamina and smooth the edge of the laminectomy up to the point where the ligamentum flavum attaches. Attention was then brought to the medial aspect of the facet joint. The remaining medial aspect of the superior and inferior aspect of the facet joint were taken down with the kerrison from the pedicle of L5 to S1. The facet joint had significant hypertrophy. Attention was then brought to the Ligamentum Flavum. The ligament was taken down from the lamina of L5 to S1 and out medially to the remaining facet joint. The ligament was thick. The dura was then exposed. The dura was in good repair. The L5 nerve was then traced with a curette out the L5/S1 foramen and found to be adequately decompressed. The S1 nerve was traced with a curette around the S1 pedicle. The lateral recess was opened with a kerrison helping to further decompress the S1 nerve. Wound is then irrigated copiously with saline and surgiflo is used to stop any bleeding. The tubular retractor is removed and the wound is closed with vicryl and monocryl suture. Glue is then used to protect the wound. A sterile dressing is then placed. Patient was then placed in the supine position and transferred to the PACU in stable condition.
[2021-01-12] MEDS: HYDROcodone-acetaminophen 5-325 mg Tablet 2 TAB PO (16:49)
--- NOTE | 2021-01-12 18:00 | ANE.PACU2 ---
Inpatient post-anesthesia follow up: Airway intact: Yes Vital signs: Temperature 97.3 F Pulse Rate 79 Respiratory Rate 18 Blood Pressure 141/76 Pulse Oximetry 94 Oxygen Delivery Me thod Room Air Oxygen Flow Rate 6 Fraction of Inspir ed Oxygen Hydration adequate: Yes Nausea and vomiting: No Pain level: 2 Mental status: Baseline
== END 2021-01-12 17:05 | disposition home or self-care (01) ==
PROVIDERS: PCP Family Medicine; Visit Provider Orthopaedic Surgery
PROC: (CPT 63005; principal; 2021-01-12 15:05)
DX: M48.062 Spinal stenosis, lumbar region with neurogenic claudication (principal); I25.10 Atherosclerotic heart disease of native coronary artery without angina pectoris; I25.2 Old myocardial infarction; K21.9 Gastro-esophageal reflux disease without esophagitis; E78.5 Hyperlipidemia, unspecified; I13.0 Hypertensive heart and chronic kidney disease with heart failure and stage 1 through stage 4 chronic kidney disease, or unspecified chronic kidney disease; N18.30 Chronic kidney disease, stage 3 unspecified; I50.30 Unspecified diastolic (congestive) heart failure; F17.210 Nicotine dependence, cigarettes, uncomplicated
CPT/HCPCS: 63047; 63048; 72020; 76000; 93005; J0690; J1100; J2405; J2704; J2710; J3010; J3490

== ENCOUNTER → 2021-02-17 13:00 | Outpatient (BNVA) | payer MEDICAID, SELFPAY | PROVIDERS: PCP Family Medicine; Visit Provider Anesthesiology | DX: M48.062 Spinal stenosis, lumbar region with neurogenic claudication (principal); M51.36 Other intervertebral disc degeneration, lumbar region; K59.09 Other constipation; F17.229 Nicotine dependence, chewing tobacco, with unspecified nicotine-induced disorders; Z79.891 Long term (current) use of opiate analgesic | CPT/HCPCS: 99213 ==

== ENCOUNTER 2021-03-20 13:56 | Inpatient (IN) | payer MEDICAID, SELFPAY ==
[2021-03-20] VITALS (14 sets, daily range): BP systolic 74–141; BP diastolic 45–80; PULSE 67–75; RESP 17–24; TEMP 36.6; O2SAT 2–100; BMI 33.6
--- NOTE | 2021-03-20 14:17 | CTR_ITS ---
PROCEDURE INFORMATION: Exam: CT Abdomen And Pelvis Without Contrast Exam date and time: 03/20/2021 2:17 PM Age: 65 years old Clinical indication: Abdominal pain; Generalized; Prior surgery; Surgery date: 6+ months; Surgery type: Cabg, hernia, ex lap; Patient HX: C/O abd pain w constipation; Additional info: Abd pain/ constipation/ UTI TECHNIQUE: Imaging protocol: Computed tomography of the abdomen and pelvis without contrast. Radiation optimization: All CT scans at this facility use at least one of these dose optimization techniques: automated exposure control; mA and/or kV adjustment per patient size (includes targeted exams where dose is matched to clinical indication); or iterative reconstruction. COMPARISON: CT abdomen pelvis w con* [id number] 12/27/2020 5:02 PM RADIATION DOSE METRICS: Total DLP (mGy-cm): 1853.53 FINDINGS: Liver: Normal. No mass. Gallbladder and bile ducts: Cholecystectomy. Nondilated biliary system. Small calcifications are noted within the mid common bile duct which may represent small stones. Pancreas: Normal. No ductal dilation. Spleen: Normal. No splenomegaly. Adrenal glands: Normal. No mass. Kidneys and ureters: Cortical atrophy of the kidneys. Negative for hydronephrosis. Simple bilateral renal cysts. Stomach and bowel: Moderate fecal volume. Negative for focal bowel mass. No focal bowel wall inflammatory change. Negative for obstruction. Negative for perforation. Increased submucosal fat deposition throughout the large bowel. Appendix: No evidence of appendicitis. Intraperitoneal space: Unremarkable. No free air. No significant fluid collection. Vasculature: Diffuse abdominal aorta atherosclerosis. Mild tortuosity. 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 Negative for periaortic hematoma. Lymph nodes: Unremarkable. No enlarged lymph nodes. Urinary bladder: Dey catheter in the bladder. Bladder decompressed. Reproductive: Unremarkable as visualized. Bones/joints: Severe L5-S1 disc disease. Unremarkable lumbar spine alignment. No fractures. Soft tissues: Unremarkable. CT/CT abdomen pelvis wo con [id number] IMPRESSION: 1. No acute inflammatory changes in the abdomen or pelvis. 2. Constipation. 3. Small biliary duct stones are suspected within common bile duct. The biliary system is nondilated. COMMENTS: Consistent with the [place] [employer]'s Incidental Findings Committee white paper (J Am Quang Radiol 2018): Any incidental renal lesion less than 1 cm or classified as too small to characterize, or any incidental cystic renal lesion characterized as simple-appearing, is likely benign. No follow-up imaging is recommended for these lesions per consensus recommendations based on imaging criteria. Radiation Dose CTDIVOL = (mGy): DLP = 1853.53 (mGy-cm)
--- NOTE | 2021-03-20 14:17 | XRR_ITS ---
PROCEDURE INFORMATION: Exam: XR Chest Exam date and time: 03/20/2021 2:17 PM Age: 65 years old Clinical indication: Shortness of breath; Additional info: Reduced breath sounds TECHNIQUE: Imaging protocol: XR of the chest. Views: 1 view. COMPARISON: CR XR chest 1V portable [id number] 03/08/2020 10:21 PM FINDINGS: Lungs: Interstitial scarring in the lateral left lung. No focal airspace consolidation. Pleural spaces: Unremarkable. No pleural effusion. No pneumothorax. Heart/Mediastinum: Prior CABG. Unremarkable cardiac silhouette. Bones/joints: Unremarkable. XR/XR chest 1V portable [id number] IMPRESSION: 1. No focal acute pulmonary disease. 2. No change from comparison.
--- NOTE | 2021-03-20 14:23 | ECG_ITS ---
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 Measurements Intervals [place] Rate: 68 P: 27 AR: 167 QRS: 32 QRSD: 110 T: 165 QT: 404 QTc: 430 Interpretive Statements SINUS RHYTHM POSSIBLE LEFT ATRIAL ENLARGEMENT [-0.1mV P WAVE IN V1/V2] INFERIOR MYOCARDIAL INFARCTION [40+ ms Q WAVE AND/OR ST/T ABNORMALITY IN II/aVF], PROBABLY OLD MODERATE T-WAVE ABNORMALITY, CONSIDER ANTEROLATERAL ISCHEMIA [-0.1+ mV T WAVE IN V3-V6] Compared to ECG 01/10/2021 09:18:34 Myocardial infarct finding now present Possible ischemia now present T-wave abnormality still present Electronically Signed On 03-20-2021 20:16:30 CDT by Kyle Jones M.D. [id number]
[2021-03-20] MEDS: sodium chloride 0.9% 1,000 ML 999 ML IV (15:08)
[2021-03-20 15:32] LABS: Basophils % 0.2 %; Eosinophils % 0.1 %; Hematocrit 42.6 % (42.0-52.0); Hemoglobin 13.5 g/dL (11.7-16.6); Lymphocytes # 2.4 10^3/uL (0.8-4.8); Mean Corpuscular HGB Conc 31.7 g/dL (30.0-36.0); Mean Corpuscular Hemoglobin 29.2 pg (28.0-34.0); Mean Corpuscular Volume 92.2 fL (80-94); Mean Platelet Volume 10.6 fL (7.4-10.4); Monocytes # 1.8 10^3/uL (0.2-0.9); Monocytes % 12.7 %; Neutrophils # 9.84 10^3/uL (1.8-7.7); Neutrophils % 69.6 %; Nucleated Red Blood Cells % 0 %; Platelet Count 168 10^3/cmm (130-400); Red Blood Count 4.62 10^6/uL (4.1-5.3); Red Cell Distribution Width 13.7 % (12.1-15.1); White Blood Count 14.1 10^3/uL (4.0-10.0)
[2021-03-20 16:09] LABS: Lactate (Lactic Acid level) 1.4 mmol/L (0.5-2.2)
[2021-03-20 16:11] LABS: Troponin(5th) Baseline 60 ng/L (0-15)
[2021-03-20 16:18] LABS: SARS Covid-2 Antigen Negative (Negative)
[2021-03-20 16:18] LABS: Add Urine Microscopic? YES; Bilirubin Urine Neg (Negative); Blood Urine 3+ (Negative); Glucose Urine UA Norm (Normal); Ketones Urine Negative (Negative); Leukocyte Esterase Urine 2+ (Negative); Nitrate Urine Negative (Negative); Protein Urine 1+ (Negative); Urine Appearance Cloudy (CLEAR); Urine Color Dark Yellow (Yellow); Urobilinogen Urine Norm (Negative); pH Urine 6 (5-7)
[2021-03-20 16:19] LABS: Add Urine Culture? Yes; Bacteria Urine 4+ /hpf; WBC Urine TOO NUMEROUS TO CNT /hpf (0-5)
[2021-03-20 16:21] LABS: Alanine Aminotransferase 43 U/L (0-41); Albumin Level 3.6 g/dL (3.5-5.2); Alkaline Phosphatase 80 IU/L (40-130); Anion Gap 16.6 (5-19); Aspartate Amino Transferase 237 U/L (0-40); Blood Urea Nitrogen 37 mg/dL (8-23); Calcium 8.3 mg/dL (8.5-10.5); Carbon Dioxide 22 mmol/L (22-29); Chloride 94 mmol/L (98-107); Glucose 121 mg/dL (65-115); Lipase 14 U/L (13-60); NT Pro B Type Natriuretic Pept 1477 pg/mL (0-125); Osmolality Calculated 276 mOsm/kg (285-295); Potassium 4.6 mmol/L (3.5-5.1); Sodium 128 mmol/L (136-145); Total Bilirubin 0.7 mg/dL (0.15-1.2); Total Protein 5.6 g/dL (6.6-8.7)
--- NOTE | 2021-03-20 16:23 | ECG_ITS ---
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 Measurements Intervals [place] Rate: 72 P: 41 DE: 186 QRS: 40 QRSD: 100 T: 150 QT: 391 QTc: 429 Interpretive Statements SINUS RHYTHM POSSIBLE LEFT ATRIAL ENLARGEMENT [-0.1mV P WAVE IN V1/V2] ST DEVIATION AND MODERATE T-WAVE ABNORMALITY, CONSIDER ANTEROLATERAL ISCHEMIA [-0.1+ mV T WAVE IN V3-V6] Compared to ECG 03/20/2021 15:11:53 Myocardial infarct finding no longer present T-wave abnormality still present Possible ischemia still present Electronically Signed On 03-20-2021 20:22:51 CDT by Kyle Jones M.D. [id number]
[2021-03-20] MEDS: sodium chloride 0.9% 1,000 ML 250 ML IV (17:05)
[2021-03-20] MEDS: cefTRIAXone 1,000 MG in sodium chloride 0.9% (plus) 100 ML 200 MG IV (17:05)
--- NOTE | 2021-03-20 17:32 | W.ED.WEAKNES ---
HPI - Weakness General: Chief complaint: Weakness Stated complaint: WEAKNESS; CONSTIPATED Time Seen by Provider: 03/20/21 14:15 History of Present Illness: HPI Narrative: The patient is a 65-year-old male with past medical history neurogenic bladder who self caths 4 times daily, he comes to the ER complaining of constipation and that he is feeling generally weak for the past couple days. He also has chronic kidney disease and diastolic CHF in his medical history. He gets frequent urinary tract infections related to his self cathing. He says he is retaining urine. He was hypotensive on arrival with blood pressure 74/48. IV and IV fluids were started. Severity: mild Associated symptoms: Reports no associated symptoms; Denies chest pain, confusion or headache(s) Review of Systems General: Reports: 10 or more systems reviewed and unremarkable except in HPI and below Const: Denies: fatigue Eyes: Denies: change in vision, blurry vision or eye redness ENMT: Denies: throat pain, swelling of lips/tongue, ear or mastoid pain or nasal congestion Card: Denies: chest pain, palpitations, irregular heart rhythm, edema, dyspnea on exertion or orthopnea Resp: Denies: dyspnea, productive cough or non-productive cough GI: Reports: constipation; Denies: abdominal pain, diarrhea or GI cramping : Reports: difficulty urinating and other (urinary retention); Denies: flank pain, urinary frequency or urinary urgency Musc: Denies: neck pain, back pain, extremity pain, joint pain, joint redness, limited range of motion or muscle weakness Skin/Breast: Denies: rash, pruritus, erythema, skin pain or skin tenderness Neuro: Denies: headache(s), numbness in extremities, weakness in extremities, sensory changes, difficulty walking, dizziness, confusion or Slurred speech present Psych: Denies: anxiety or depression Endo: Denies: polyuria All/Imm: Denies: urticaria, throat swelling or tongue swelling PFSH ED PFSH: Medical History Aortic embolism or thrombosis Atherosclerosis of coronary artery of [place] heart with stable angina pectoris Chronic idiopathic constipation CKD (chronic kidney disease), stage III DDD (degenerative disc disease), lumbar Diastolic CHF Dyslipidemia GERD (gastroesophageal reflux disease) Hypertension Labile blood pressure Neurogenic bladder Nocturnal enuresis Orthostatic hypotension Perforated gastric ulcer PVC (premature ventricular contraction) 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[place], on chronic amiodorone therapy Recurrent UTI Urinary retention Surgical History H/O esophagogastroduodenoscopy H/O exploratory laparotomy History of colonoscopy with polypectomy History of coronary artery stent placement X1 around 2018 in [place] History of heart bypass surgery 2 vessels at [facility] in [place] History of incisional hernia repair History of open heart surgery S/P tonsillectomy and adenoidectomy Status post colonoscopy 2019 Family History Other CAD (coronary artery disease) Cancer Hypertension Social History Smoking and tobacco status: current every day smoker smokeless tobacco Smokeless tobacco user: chewing tobacco Smokeless tobacco details: 1 CAN EVERY 2-3 DAYS Alcohol intake: never Caregiver/support person: No Lives independently: No Household members: family Marital status: Single Current occupational status: disabled History of recent travel: No Current gender identity: Male Physical Exam Const: COMMON NORMALS: no acute distress, average body habitus, patient oriented x3, no limitations, healthy appearing, alert and well nourished GENERAL APPEARANCE: cooperative, comfortable, well kempt and well developed ORIENTATION/CONSCIOUSNESS: Yes awake, Yes oriented to person, Yes oriented to place and Yes oriented to time HENMT: COMMON NORMALS: normocephalic, external ears normal and Normal external nose present HEAD & SCALP: normal to inspection and normocephalic NOSE: Normal external nose present EXTERNAL EAR: Yes external ears normal MOUTH: Normal oral and palatal mucosa present THROAT: posterior oropharynx normal Eye: COMMON NORMALS: Equal, round and reactive pupils present and EOMs intact bilaterally GENERAL EYE: appearance normal, both eyes and all related structures PUPIL: Yes Equal, round and reactive pupils present Neck/C-Spine: COMMON NORMALS: full ROM, no lymphadenopathy, no meningeal signs and no JVD GENERAL: Yes normal visual inspection Lymph: LYMPHATIC: no lymphadenopathy noted Chest: COMMONS NORMALS: normal inspection of the chest and normal palpation of entire chest wall Resp: COMMON NORMALS: normal respiratory effort, No retractions, No use of accessory muscles, clear to auscultation bilaterally and percussion normal EFFORT & INSPECTION: Yes able to speak in complete sentences AUSCULTATION: clear to auscultation bilaterally PERCUSSION: percussion normal Cardio: COMMON NORMALS: no JVD, regular rate, regular rhythm, S1 normal heart sound present, S2 normal heart sound present and Peripheral pulses 2+ throughout RATE: regular rate RHYTHM: regular rhythm HEART SOUNDS: S1 normal heart sound present and S2 normal heart sound present PERIPHERAL PULSES: Peripheral pulses 2+ throughout GI: COMMON NORMALS: Normal to inspection, nondistended, normoactive bowel sounds present, Soft to palpation, non-tender and no masses INSPECTION: Yes normal to inspection PALPATION: Yes Soft to palpation : COMMON NORMALS: Yes no CVA tenderness BLADDER/KIDNEY EXAM: Yes no CVA tenderness Back/Pelvis: COMMON NORMALS: no CVA tenderness, thoracic and lumbar spine normal to inspection, no thoracic nor lumbar tenderness and thoraco-lumbar ROM normal Extremity: COMMON NORMALS: normal to inspection, full ROM, capillary refill normal, no joint enlargement and no pedal edema GENERAL: Yes normal exam except as noted Neuro: COMMON NORMALS: patient oriented x3, CN's II-XII intact bilaterally, moves all extremities, no focal motor deficits, no sensory deficits noted and gait normal SENSORIUM/ORIENTATION: Yes alert, Yes oriented to person, Yes oriented to place and Yes oriented to time MENINGEAL SIGNS: Yes no meningeal signs Psych: COMMON NORMALS: mental status grossly normal, Normal thought process present, cooperative, normal affect and speech normal APPEARANCE: Yes well kempt ATTITUDE: Yes calm SPEECH: Yes normal speech THOUGHT PROCESS: Normal thought process present Skin: COMMON NORMALS: no rashes or lesions noted GENERAL SKIN EXAM: no rashes or lesions noted Course Vital Signs: Vital signs: Vital Signs Pulse Rate 73 03/20/21 17:00 Respiratory Rate 17 03/20/21 17:00 Blood Pressure 103/56 03/20/21 17:00 Pulse Oximetry 100 03/20/21 17:00 MDM - Weakness MDM Narrative: Medical decision making narrative: The patient came to the ER hypotensive and IV fluids were started. He was complaining of constipation and general weakness. He gets frequent UTIs as he self catheterizes. He again has one here there is lots of white blood cells in his urine and also he has an acute kidney injury with creatinine 2.9 and BUN 37. He was started on IV fluids and levofloxacin IV. Discussed with Dr. Jin who accepts for admission. Lab Data: Labs: Lab Results 03/20/21 03/20/21 03/20/21 Range/Units 14:50 14:50 14:50 WBC 14.1 H (4.0-10.0) 10^3/ uL RBC 4.62 (4.1-5.3) 10^6/u L Hgb 13.5 (11.7-16.6) g/dL Hct 42.6 (42.0-52.0) % MCV 92.2 (80-94) fL MCH 29.2 (28.0-34.0) pg MCHC 31.7 (30.0-36.0) g/dL RDW 13.7 (12.1-15.1) % Plt Count 168 (130-400) 10^3/c mm MPV 10.6 H (7.4-10.4) fL Neut % (Auto) 69.6 % Lymph % (Auto) 17.0 % Garrard % (Auto) 12.7 % Eos % (Auto) 0.1 % Baso % (Auto) 0.2 % Neut # (Auto) 9.84 H (1.8-7.7) 10^3/u L Lymph # (Auto) 2.4 (0.8-4.8) 10^3/u L Garrard # (Auto) 1.8 H (0.2-0.9) 10^3/u L Eos # (Auto) 0.0 (0.0-0.8) 10^3/u L Baso # (Auto) 0.0 (0.0-0.1) 10^3/u L Nucleated RBC % (a uto) 0 % Nucleated RBCs # 0.0 /100WBC Sodium 128 L (136-145) mmol/L Potassium 4.6 (3.5-5.1) mmol/L Chloride 94 L (98-107) mmol/L Carbon Dioxide 22 (22-29) mmol/L Anion Gap 16.6 (5-19) BUN 37 H (8-23) mg/dL Creatinine 2.9 H (0.7-1.2) mg/dL GFR Calculation 22.0 L (90-130) mL/min Glucose 121 H (65-115) mg/dL Calculated Osmolal ity 276 L (285-295) mOsm/k g Lactate 1.4 (0.5-2.2) mmol/L Calcium 8.3 L (8.5-10.5) mg/dL Total Bilirubin 0.7 (0.15-1.2) mg/dL AST 237 H (0-40) U/L ALT 43 H (0-41) U/L Alkaline Phosphata se 80 (40-130) IU/L Troponin T Baselin e (0-15) ng/L NT-Pro-B Natriuret Pep 1477 H (0-125) pg/mL Total Protein 5.6 L (6.6-8.7) g/dL Albumin 3.6 (3.5-5.2) g/dL Globulin 2.0 (1.3-4.6) g/dL Lipase 14 (13-60) U/L Urine Color (Yellow) Urine Appearance (CLEAR) Urine pH (5-7) Ur Specific Gravit y (1.005-1.030) Urine Protein (Negative) Urine Glucose (UA) (Normal) Urine Ketones (Negative) Urine Blood (Negative) Urine Nitrate (Negative) Urine Bilirubin (Negative) Urine Urobilinogen (Negative) mg/dL Ur Leukocyte Lois ase (Negative) Urine RBC (0-2) /hpf Urine WBC (0-5) /hpf Ur Squamous Epith Cells (0-5) /hpf Amorphous Sediment Urine Bacteria (NONE) /hpf SARS-CoV-2 Ag (Rap id) (Negative) 03/20/21 03/20/21 03/20/21 Range/Units 14:50 15:28 15:30 WBC (4.0-10.0) 10^3/ uL RBC (4.1-5.3) 10^6/u L Hgb (11.7-16.6) g/dL Hct (42.0-52.0) % MCV (80-94) fL MCH (28.0-34.0) pg MCHC (30.0-36.0) g/dL RDW (12.1-15.1) % Plt Count (130-400) 10^3/c mm MPV (7.4-10.4) fL Neut % (Auto) % Lymph % (Auto) % Garrard % (Auto) % Eos % (Auto) % Baso % (Auto) % Neut # (Auto) (1.8-7.7) 10^3/u L Lymph # (Auto) (0.8-4.8) 10^3/u L Garrard # (Auto) (0.2-0.9) 10^3/u L Eos # (Auto) (0.0-0.8) 10^3/u L Baso # (Auto) (0.0-0.1) 10^3/u L Nucleated RBC % (a uto) % Nucleated RBCs # /100WBC Sodium (136-145) mmol/L Potassium (3.5-5.1) mmol/L Chloride (98-107) mmol/L Carbon Dioxide (22-29) mmol/L Anion Gap (5-19) BUN (8-23) mg/dL Creatinine (0.7-1.2) mg/dL GFR Calculation (90-130) mL/min Glucose (65-115) mg/dL Calculated Osmolal ity (285-295) mOsm/k g Lactate (0.5-2.2) mmol/L Calcium (8.5-10.5) mg/dL Total Bilirubin (0.15-1.2) mg/dL AST (0-40) U/L ALT (0-41) U/L Alkaline Phosphata se (40-130) IU/L Troponin T Baselin e 60 H (0-15) ng/L NT-Pro-B Natriuret Pep (0-125) pg/mL Total Protein (6.6-8.7) g/dL Albumin (3.5-5.2) g/dL Globulin (1.3-4.6) g/dL Lipase (13-60) U/L Urine Color Dark yellow (Yellow) Urine Appearance Cloudy (CLEAR) Urine pH 6 (5-7) Ur Specific Gravit y 1.010 (1.005-1.030) Urine Protein 1+ H (Negative) Urine Glucose (UA) Norm (Normal) Urine Ketones Negative (Negative) Urine Blood 3+ H (Negative) Urine Nitrate Negative (Negative) Urine Bilirubin Neg (Negative) Urine Urobilinogen Norm (Negative) mg/dL Ur Leukocyte Lois ase 2+ H (Negative) Urine RBC 5-10 H (0-2) /hpf Urine WBC Too numerous to c nt H (0-5) /hpf Ur Squamous Epith Cells None (0-5) /hpf Amorphous Sediment Not Reportable Urine Bacteria 4+ H (NONE) /hpf SARS-CoV-2 Ag (Rap id) Negative (Negative) Discharge Plan Discharge Patient Disposition: Admitted As Inpatient Clinical Impression: Recurrent UTI, Acute kidney injury Condition: Stable Coding Level of Care Code ED [employer] for Nena Morelos
[2021-03-20 17:46] LABS: Troponin 5 2HR 42.11 ng/L (0-15)
--- NOTE | 2021-03-20 17:59 | PM.HP ---
Providers/Chief Complaint Primary Care Provider: Valencia Laureano DO Chief Complaint: WEAKNESS; CONSTIPATED History of Present Illness 65-year-old male with a past medical history significant for coronary artery disease status post CABG x2, hypertension, dyslipidemia, chronic diastolic heart failure, tobacco abuse, perforated duodenal ulcer s/p exp/lap 10/2017, PVC started on amiodarone, orthostatic hypotension on florinef with recent episode of hypotension, neurogenic bladder rq self-catheterization who presented to ER with generalized weakness. Patient stated this was associated with subjective fever, chills and also yellow pus like appearing urine. Noted similar symptoms in the past with UTIs. Upon arrival to ER his initial laboratory workup showed a WBC of 14.1, hemoglobin of 13.5, hematocrit 42.6 and a platelet count of 168. Sodium 128, potassium 4.6, chloride 94, bicarb 22, BUN 37 and creatinine of 2.9. Most recent creatinine of 0.9 in January of 2021. AST of 237, ALT of 43 and alkaline phosphatase of 80. Troponin T of 60 with repeat of 42.1. ProBNP of 1477. Urinalysis showed 2+ leukocyte esterase, negative nitrates and 4+ bacteria initial vitals showed a blood pressure of 74/48, respiratory rate 24, pulse ox of 93%, and heart rate of 75. Dey catherter and Rocephin 1g IV x 1 in ER. Review of Systems General: Reports: 10 or more systems reviewed and unremarkable except in HPI and below Medications/Allergies Home Medications Medication Instructions Recorded Confirmed Last Taken Type clonidine HCl 0.1 mg PO BID PRN #0 tab 03/11/20 03/20/21 10/03/20 Rx amlodipine 5 mg tablet 5 mg PO BID@1000,2200 PRN tab 04/23/20 03/20/21 Unknown History qfydqenvdms-ofu-vllkqmocx-hrb 1 tab PO DAILY@1000 05/11/20 03/20/21 03/20/21 History 149-hyalur 500 mg-500 mg-66.7 mg tablet ascorbic acid (vitamin C) 1,000 mg 1,000 mg PO Q12H 07/13/20 03/20/21 03/20/21 History tablet,extended release Neem 1 tab PO DAILY@1000 10/04/20 03/20/21 03/20/21 History aspirin 81 mg PO DAILY@1000 10/04/20 03/20/21 03/20/21 History pantoprazole 40 mg tablet,delayed 40 mg PO BID@1000,2200 #60 tab 12/07/20 03/20/21 03/20/21 Rx release docusate sodium 100 mg capsule 100 mg PO TID@1000,1200,2200 #90 01/10/21 03/20/21 03/20/21 Rx cap methenamine hippurate [Hiprex] 1 g PO BID 01/10/21 03/20/21 03/20/21 History fludrocortisone 0.1 mg tablet 0.05 mg PO BID PRN #90 tab 01/19/21 03/20/21 Unknown Rx amiodarone 200 mg tablet 100 mg PO DAILY@1000 #30 tab 02/03/21 03/20/21 03/20/21 Rx hydrocodone 7.5 mg-acetaminophen 1 tab PO TID PRN 30 Days #90 tab 02/17/21 03/20/21 Unknown Rx 325 mg tablet hydrocodone 7.5 mg-acetaminophen 1 tab PO TID PRN 30 Days #90 tab 02/17/21 03/20/21 Unknown Rx 325 mg tablet rosuvastatin 10 mg tablet 10 mg PO DAILY@1000 #90 tab 02/21/21 03/20/21 03/20/21 Rx glucosamine sulfate [Glucosamine] 500 mg PO DAILY 03/20/21 03/20/21 03/20/21 History potassium chloride 10 meq PO DAILY@1000 03/20/21 03/20/21 03/19/21 History vit A,C and X-jpucao-clwxpdzy 1 tab PO DAILY 03/20/21 03/20/21 03/20/21 History [Healthy Eyes] Allergies Allergy/AdvReac Type Severity Reaction Status Date / Time No Known Allergies Allergy Verified 03/01/21 14:25 PFSH Acute PFSH: Medical History Aortic embolism or thrombosis Atherosclerosis of coronary artery of [place] heart with stable angina pectoris Chronic idiopathic constipation CKD (chronic kidney disease), stage III DDD (degenerative disc disease), lumbar Diastolic CHF Dyslipidemia GERD (gastroesophageal reflux disease) Hypertension Labile blood pressure Neurogenic bladder Nocturnal enuresis Orthostatic hypotension Perforated gastric ulcer PVC (premature ventricular contraction) 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[place], on chronic amiodorone therapy Recurrent UTI Urinary retention Surgical History H/O esophagogastroduodenoscopy H/O exploratory laparotomy History of colonoscopy with polypectomy History of coronary artery stent placement X1 around 2018 in [place] History of heart bypass surgery 2 vessels at [facility] in [place] History of incisional hernia repair History of open heart surgery S/P tonsillectomy and adenoidectomy Status post colonoscopy 2019 Family History Other CAD (coronary artery disease) Cancer Hypertension Social History Smoking and tobacco status: current every day smoker smokeless tobacco Smokeless tobacco user: chewing tobacco Smokeless tobacco details: 1 CAN EVERY 2-3 DAYS Alcohol intake: never Caregiver/support person: No Lives independently: No Household members: family Marital status: Single Current occupational status: disabled History of recent travel: No Current gender identity: Male Vitals/I&O/Wt Last Vital Signs Pulse 73 03/20/21 17:00 Resp 17 03/20/21 17:00 BP 103/56 03/20/21 17:00 Pulse Ox 100 03/20/21 17:00 Weight last 48 hrs Weight 97.522 kg Physical Exam Narrative: EXAM NARRATIVE: General-awake alert and oriented x3 HEENT -grossly unremarkable CVS -regular rate rhythm Chest-clear to auscultation bilaterally Abdomen-soft nontender nondistended Extremities-no edema Urinary Catheter Management^: Dey: Cath Placed During This Visit: yes Urinary Catheter Date of Insertion: 03/20/21 Urinary Catheter Time of Insertion: 15:30 Data : 03/20/21 14:50 03/20/21 14:50 Micro: Microbiology 03/20/21 16:55 Blood Culture - Preliminary Blood SPECIMEN COLLECTED 03/20/21 14:50 Blood Culture - Preliminary Blood SPECIMEN COLLECTED A&P Assessment and plan (1) Sepsis due to urinary tract infection: Status: Acute (2) Acute kidney injury: Status: Acute (3) Abnormal finding on thyroid function test: Status: Acute (4) Hypotension: Status: Acute (5) PVC (premature ventricular contraction): Status: Chronic Sepsis due to urinary tract infection UA post leuk, WBC, 4+ bacteria, WBC of 14.1 Rocephin 2g IV daily F/u on urine culture Blood culture x 2 Repeat cbc in am Acute Renal Failure / Hyponatremia Creatinine 2.9 NS at 75cc/hr NS bolus in ER Repeat BMP in am Dey placed in ER Amiodarone induced thyroid dysfunction TSH 0.01, FT4-3.06 Amiodarone dose was decreased to 100mg recently Will repeat thyroid studies in am Hypotension Unclear if hx of adrenal insufficiency Resume Florinef Hold antihypertensive Additional Medical Problems Coronary artery disease hx of CABG/PCI/Stent Chronic Diastolic Heart Failure Hx of Perforated ulcer s/p ex.lap in 2018 Hypertension Dyslipidemia Tobacco abuse DVT ppx ? Heparin, SCDs Attestations Medical Necessity Statement*: Will require over 2 midnight stay in hospital for evaluation and treatment of sepsis, UTI requiring IV antibiotics and acute renal insufficiency requiring IV fluids Time Spent in Patient Care: Greater than 35 minutes (>than 50% of time spent in counselling and/or direct pt care on unit). Coding Level of Care Code Acute Director Social Welfare for Joshg Fwd Diagnoses Sepsis due to urinary tract infection A41.9; N39.0 Acute kidney injury N17.9 Abnormal finding on thyroid function test R94.6 Hypotension I95.9 PVC (premature ventricular contraction) I49.3
--- NOTE | 2021-03-20 19:06 | PC.NURSE ---
unable to call report at this time as receiving unit does not answer their phone
[2021-03-20 22:55] LABS: Troponin 5 6HR 34.19 ng/L (0-15)
[2021-03-20] MEDS: sodium chloride 0.9% 1,000 ML 75 ML IV (23:00)
[2021-03-21] VITALS (8 sets, daily range): BP systolic 91–174; BP diastolic 58–83; PULSE 72–83; RESP 17–25; TEMP 36.7–38.2; O2SAT 94–99
[2021-03-21 06:08] LABS: Basophils % 0.2 %; Eosinophils % 0.1 %; Hematocrit 46.7 % (42.0-52.0); Hemoglobin 14.2 g/dL (11.7-16.6); Lymphocytes # 1.5 10^3/uL (0.8-4.8); Mean Corpuscular HGB Conc 30.4 g/dL (30.0-36.0); Mean Corpuscular Hemoglobin 28.9 pg (28.0-34.0); Mean Corpuscular Volume 95.1 fL (80-94); Mean Platelet Volume 10.5 fL (7.4-10.4); Monocytes # 1.3 10^3/uL (0.2-0.9); Monocytes % 9.8 %; Neutrophils # 9.94 10^3/uL (1.8-7.7); Neutrophils % 77.4 %; Nucleated Red Blood Cells % 0 %; Platelet Count 167 10^3/cmm (130-400); Red Blood Count 4.91 10^6/uL (4.1-5.3); Red Cell Distribution Width 13.4 % (12.1-15.1); White Blood Count 12.9 10^3/uL (4.0-10.0)
[2021-03-21 06:39] LABS: Alanine Aminotransferase 54 U/L (0-41); Alkaline Phosphatase 81 IU/L (40-130); Aspartate Amino Transferase 317 U/L (0-40); Blood Urea Nitrogen 28 mg/dL (8-23); Calcium 8.4 mg/dL (8.5-10.5); Carbon Dioxide 22 mmol/L (22-29); Chloride 100 mmol/L (98-107); Free T4 Free Thyroxine 1.26 ng/dL (0.82-1.77); Glomerular Filtration Rate 47.1 mL/min (90-130); Glucose 107 mg/dL (65-115); Magnesium 1.9 mg/dL (1.7-2.3); Osmolality Calculated 284 mOsm/kg (285-295); Sodium 134 mmol/L (136-145); T3 Free 1.5 PG/ML (2.0-4.4); Thyroid Stimulating Hormone 0.65 uIU/mL (0.27-4.20); Total Bilirubin 0.5 mg/dL (0.15-1.2)
[2021-03-21 06:52] LABS: Anion Gap 16.6 (5-19); Potassium 4.6 mmol/L (3.5-5.1)
[2021-03-21] MEDS: aspirin 81 mg EC Tablet PO (11:02)
[2021-03-21] MEDS: fludrocortisone 0.1 mg Tablet 0.05 MG PO ×2 (11:02→18:00)
[2021-03-21] MEDS: atorvastatin 40 mg Tablet PO (11:03)
[2021-03-21] MEDS: heparin 5,000 unit/mL INJ 1 mL 5000 UNIT SUBCUT ×2 (11:03→18:01)
[2021-03-21] MEDS: pantoprazole DR 40 mg Tablet PO (11:03)
[2021-03-21] MEDS: amiodarone 200 mg Tablet 100 MG PO (11:03)
--- NOTE | 2021-03-21 11:31 | CT_ITS ---
WS: [id number] CT HEAD NONCONTRAST HISTORY: Abnormal Gait TECHNIQUE: Contiguous axial imaging performed through the brain in 2.5 mm imaging. Bone and soft tiss ue windows. Sagittal and coronal reformats reviewed. All CT scans at [facility] use at ast one of these dose optimization techniques: automated exposure control; mA and/or kV adjustment pe r patient size (includes targeted exams where dose is matched to clinical indication); or iterative r econstruction. DLP: 903.4 mGy.cm COMPARISON: 12/27/2020 No acute intracranial hemorrhage, midline shift or mass effect. Mild atrophy, no prior infarcts or herniation. . Mild chronic microvascular ischemic changes. No diana or infarct. Ventricles: Normal size with no hydrocephalus. Paranasal sinuses: As visualized are clear. Mastoid air cells: Well pneumatized. Calvarium and scalp: Skull is intact with no soft tissue edema or swelling. CT/CT head wo con* [id number] IMPRESSION: 1. Stable noncontrast head CT. 2. No acute intracranial hemorrhage or edema.
--- NOTE | 2021-03-21 11:49 | PC.NURSE ---
Nurse Notified of Blood pressure:
--- NOTE | 2021-03-21 16:11 | P.PN_ITS ---
Subjective Subjective: Interval history: Patient was seen and examined this morning, complaining of generalized weakness and fatigue. Noted T-max:100.8. Medications: Reviewed: Yes Vitals/I&O/Wt Last Vital Signs Temp 100.8 F H 03/21/21 11:49 Pulse 74 03/21/21 11:49 Resp 18 03/21/21 11:49 BP 91/58 03/21/21 11:49 Pulse Ox 97 03/21/21 11:49 03/21/21 03/21/21 03/21/21 06:59 14:59 22:59 Intake Total 360 / 2460 1300 / 1300 Output Total 1500 / 1500 Balance -1140 / 960 1300 / 1300 Weight last 48 hrs Weight 97.522 kg Physical Exam Const: COMMON NORMALS: patient oriented x3 HENMT: COMMON NORMALS: normocephalic and atraumatic HEAD & SCALP: normocephalic and atraumatic Resp: COMMON NORMALS: clear to auscultation bilaterally EFFORT & INSPECTION: Yes symmetric chest movement AUSCULTATION: clear to auscultation bilaterally Cardio: COMMON NORMALS: regular rate, regular rhythm, S1 normal heart sound present, S2 normal heart sound present, No gallops present (Cardio), No murmurs present (Cardio), No rub (Cardio) and Peripheral pulses 2+ throughout RATE: regular rate RHYTHM: regular rhythm HEART SOUNDS: S1 normal heart sound present and S2 normal heart sound present PERIPHERAL PULSES: Peripheral pulses 2+ throughout GI: COMMON NORMALS: Normal to inspection, nondistended, normoactive bowel sounds present, Soft to palpation, non-tender, No hepatosplenomegaly present and no masses AUSCULTATION: Yes normoactive bowel sounds PALPATION: Yes Soft to palpation and Yes No hepatosplenomegaly present RECTAL EXAM: Yes deferred Extremity: COMMON NORMALS: no clubbing, cyanosis or edema and no pedal edema Neuro: COMMON NORMALS: patient oriented x3 Urinary Catheter Management^: Dey: Cath Placed During This Visit: yes Reason for Continuing Indwelling Catheter: Accurate Measurement of Urinary Output in Critically Ill Patients Urinary Catheter Date of Insertion: 03/20/21 Urinary Catheter Time of Insertion: 15:30 Data : 03/21/21 05:30 03/21/21 05:30 Micro: Microbiology 03/20/21 14:50 Blood Culture - Preliminary Blood NEGATIVE TO DATE 03/20/21 16:55 Blood Culture - Preliminary Blood 03/20/21 15:28 Urine Culture - Preliminary Urine,Clean Catch Gram Negative Rods A&P Assessment and plan (1) Sepsis due to urinary tract infection: Status: Acute (2) Acute kidney injury: Status: Acute (3) Abnormal finding on thyroid function test: Status: Acute (4) Hypotension: Status: Acute (5) PVC (premature ventricular contraction): Status: Chronic Sepsis due to urinary tract infection UA post leuk, WBC, 4+ bacteria, WBC of 14.1 Rocephin 2g IV daily F/u on urine culture Blood culture x 2 Repeat cbc in am Acute Renal Failure / Hyponatremia Creatinine 2.9 NS at 75cc/hr NS bolus in ER Repeat BMP in am Dey placed in ER Amiodarone induced thyroid dysfunction TSH 0.01, FT4-3.06 Amiodarone dose was decreased to 100mg recently Repeat thyroid studies:TSH: 0.6, Free T4: 1.26, Free T3: 1.5 Hypotension Unclear if hx of adrenal insufficiency Resume Florinef Hold antihypertensive Additional Medical Problems Coronary artery disease hx of CABG/PCI/Stent Chronic Diastolic Heart Failure Hx of Perforated ulcer s/p ex.lap in 2018 Hypertension Dyslipidemia Tobacco abuse DVT ppx ? Heparin, SCDs Attestations 2 Medical Necessity Statement*: Patient is to be in hospital for management of sepsis. Coding Level of Care Code Acute Applied Psychology Teacher for Joshg Fwd Diagnoses Sepsis due to urinary tract infection A41.9; N39.0 Acute kidney injury N17.9 Abnormal finding on thyroid function test R94.6 Hypotension I95.9 PVC (premature ventricular contraction) I49.3
--- NOTE | 2021-03-21 18:41 | PC.RESP ---
SMOKING CESSATION INFORMATION SENT TO PATIENT.
[2021-03-21] MEDS: sodium chloride 0.9% 1,000 ML 30 ML IV (22:12)
[2021-03-21] MEDS: cefTRIAXone 2,000 MG in sodium chloride 0.9% (plus) 100 ML 200 MG IV (22:13)
[2021-03-22] VITALS (7 sets, daily range): BP systolic 100–142; BP diastolic 55–89; PULSE 66–77; RESP 16–26; TEMP 36.4–37.6; O2SAT 92–98
[2021-03-22 06:44] LABS: Basophils % 0.2 %; Eosinophils # 0.1 10^3/uL (0.0-0.8); Eosinophils % 0.6 %; Hematocrit 37.1 % (42.0-52.0); Hemoglobin 11.8 g/dL (11.7-16.6); Lymphocytes # 2.7 10^3/uL (0.8-4.8); Mean Corpuscular HGB Conc 31.8 g/dL (30.0-36.0); Mean Corpuscular Hemoglobin 28.9 pg (28.0-34.0); Mean Corpuscular Volume 90.9 fL (80-94); Mean Platelet Volume 10.7 fL (7.4-10.4); Monocytes % 8.9 %; Neutrophils # 7.11 10^3/uL (1.8-7.7); Neutrophils % 64.9 %; Nucleated Red Blood Cells % 0 %; Platelet Count 186 10^3/cmm (130-400); Red Blood Count 4.08 10^6/uL (4.1-5.3); Red Cell Distribution Width 13.4 % (12.1-15.1); White Blood Count 10.9 10^3/uL (4.0-10.0)
[2021-03-22 07:13] LABS: Anion Gap 13.2 (5-19); Blood Urea Nitrogen 21 mg/dL (8-23); Calcium 7.9 mg/dL (8.5-10.5); Carbon Dioxide 23 mmol/L (22-29); Chloride 102 mmol/L (98-107); Glucose 97 mg/dL (65-115); Osmolality Calculated 281 mOsm/kg (285-295); Potassium 4.2 mmol/L (3.5-5.1); Sodium 134 mmol/L (136-145)
[2021-03-22] MEDS: heparin 5,000 unit/mL INJ 1 mL 5000 UNIT SUBCUT ×2 (10:01→18:19)
[2021-03-22] MEDS: fludrocortisone 0.1 mg Tablet 0.05 MG PO ×2 (10:01→18:21)
[2021-03-22] MEDS: amiodarone 200 mg Tablet 100 MG PO (10:02)
[2021-03-22] MEDS: atorvastatin 40 mg Tablet PO (10:02)
[2021-03-22] MEDS: pantoprazole DR 40 mg Tablet PO (10:02)
[2021-03-22] MEDS: aspirin 81 mg EC Tablet PO (10:03)
--- NOTE | 2021-03-22 12:07 | PM.PN ---
Subjective Subjective: Interval history: Patient was seen and examined this morning,says that he is felling little better as compared to yesterday. He is less fatigued. Generalized weakness has improved. Medications: Reviewed: Yes Vitals/I&O/Wt Last Vital Signs Temp 99.7 F H 03/22/21 08:00 Pulse 76 03/22/21 08:00 Resp 17 03/22/21 08:00 BP 100/55 03/22/21 08:00 Pulse Ox 94 03/22/21 08:00 03/21/21 03/22/21 03/22/21 22:59 06:59 14:59 Intake Total 240 / 1540 100 / 1640 240 / 240 Output Total 901 / 901 675 / 1576 Balance -661 / 639 -575 / 64 240 / 240 Weight last 48 hrs Weight 97.522 kg Physical Exam Const: COMMON NORMALS: patient oriented x3 HENMT: COMMON NORMALS: normocephalic and atraumatic HEAD & SCALP: normocephalic and atraumatic Resp: COMMON NORMALS: clear to auscultation bilaterally EFFORT & INSPECTION: Yes symmetric chest movement AUSCULTATION: clear to auscultation bilaterally Cardio: COMMON NORMALS: regular rate, regular rhythm, S1 normal heart sound present, S2 normal heart sound present, No gallops present (Cardio), No murmurs present (Cardio), No rub (Cardio) and Peripheral pulses 2+ throughout RATE: regular rate RHYTHM: regular rhythm HEART SOUNDS: S1 normal heart sound present and S2 normal heart sound present PERIPHERAL PULSES: Peripheral pulses 2+ throughout GI: COMMON NORMALS: Normal to inspection, nondistended, normoactive bowel sounds present, Soft to palpation, non-tender, No hepatosplenomegaly present and no masses AUSCULTATION: Yes normoactive bowel sounds PALPATION: Yes Soft to palpation and Yes No hepatosplenomegaly present RECTAL EXAM: Yes deferred Extremity: COMMON NORMALS: no clubbing, cyanosis or edema and no pedal edema Neuro: COMMON NORMALS: patient oriented x3 Urinary Catheter Management^: Dey: Cath Placed During This Visit: yes Reason for Continuing Indwelling Catheter: Acute Urinary Retention or Obstruction Urinary Catheter Date of Insertion: 03/20/21 Urinary Catheter Time of Insertion: 15:30 Data : 03/22/21 06:10 03/22/21 06:10 Micro: Microbiology 03/20/21 14:50 Blood Culture - Preliminary Blood NEGATIVE TO DATE 03/20/21 16:55 Blood Culture - Preliminary Blood 03/20/21 15:28 Urine Culture - Preliminary Urine,Clean Catch Gram Negative Rods A&P Assessment and plan (1) Sepsis due to urinary tract infection: Status: Acute (2) Acute kidney injury: Status: Acute (3) Abnormal finding on thyroid function test: Status: Acute (4) Hypotension: Status: Acute (5) PVC (premature ventricular contraction): Status: Chronic Sepsis due to urinary tract infection UA post leuk, WBC, 4+ bacteria, WBC of 14.1 Rocephin 2g IV daily urine culture :GNR : E.coli : Blood culture x 2 : 09/06 : Bacillus sp Acute Renal Failure / Hyponatremia: Resolved Admission Serum Creatinine 2.9. Current SCR : 0.9 Initially on NS at 75cc/hr.Currently has been stopped. NS bolus in ER Monitor BMP Dey placed in ER Amiodarone induced thyroid dysfunction TSH 0.01, FT4-3.06 Amiodarone dose was decreased to 100mg recently Repeat thyroid studies:TSH: 0.6, Free T4: 1.26, Free T3: 1.5 Hypotension Unclear if hx of adrenal insufficiency Resume Florinef Hold antihypertensive Additional Medical Problems Coronary artery disease hx of CABG/PCI/Stent Chronic Diastolic Heart Failure Hx of Perforated ulcer s/p ex.lap in 2018 Hypertension Dyslipidemia Tobacco abuse DVT ppx ? Heparin, SCDs Disposition :Likely will need alf placement, given his overall decline in functional status. Attestations Medical Necessity Statement*: Patient needs to be in hospital for the management of sepsis. 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
[2021-03-22] MEDS: cefTRIAXone 2,000 MG in sodium chloride 0.9% (plus) 100 ML 200 MG IV (21:02)
[2021-03-23] VITALS (7 sets, daily range): BP systolic 114–164; BP diastolic 70–97; PULSE 62–75; RESP 17–27; TEMP 36.6–37.2; O2SAT 96–98
[2021-03-23] MEDS: sodium chloride 0.9% 1,000 ML 30 ML IV (05:49)
[2021-03-23 06:15] LABS: Basophils % 0.3 %; Eosinophils # 0.1 10^3/uL (0.0-0.8); Eosinophils % 0.9 %; Hematocrit 37.2 % (42.0-52.0); Hemoglobin 11.9 g/dL (11.7-16.6); Lymphocytes # 2.1 10^3/uL (0.8-4.8); Mean Corpuscular Hemoglobin 28.9 pg (28.0-34.0); Mean Corpuscular Volume 90.3 fL (80-94); Mean Platelet Volume 11.2 fL (7.4-10.4); Monocytes # 0.8 10^3/uL (0.2-0.9); Monocytes % 8.8 %; Neutrophils # 5.83 10^3/uL (1.8-7.7); Neutrophils % 65.6 %; Nucleated Red Blood Cells % 0 %; Platelet Count 206 10^3/cmm (130-400); Red Blood Count 4.12 10^6/uL (4.1-5.3); Red Cell Distribution Width 13.2 % (12.1-15.1); White Blood Count 8.9 10^3/uL (4.0-10.0)
[2021-03-23 06:30] LABS: Anion Gap 14.3 (5-19); Blood Urea Nitrogen 15 mg/dL (8-23); Calcium 8.1 mg/dL (8.5-10.5); Carbon Dioxide 23 mmol/L (22-29); Chloride 102 mmol/L (98-107); Creatinine Clr Calc Pharmacy 118.6276; Glomerular Filtration Rate 113.5 mL/min (90-130); Glucose 96 mg/dL (65-115); Osmolality Calculated 281 mOsm/kg (285-295); Potassium 4.3 mmol/L (3.5-5.1); Sodium 135 mmol/L (136-145)
[2021-03-23] MEDS: amiodarone 200 mg Tablet 100 MG PO (09:01)
[2021-03-23] MEDS: pantoprazole DR 40 mg Tablet PO (09:01)
[2021-03-23] MEDS: aspirin 81 mg EC Tablet PO (09:01)
[2021-03-23] MEDS: heparin 5,000 unit/mL INJ 1 mL 5000 UNIT SUBCUT ×2 (09:01→17:13)
[2021-03-23] MEDS: fludrocortisone 0.1 mg Tablet 0.05 MG PO ×2 (09:01→17:13)
[2021-03-23] MEDS: atorvastatin 40 mg Tablet PO (09:02)
--- NOTE | 2021-03-23 11:55 | PM.PN ---
Subjective Subjective: Interval history: Patient was seen and examined this morning,says that he is felling little better. Has remained afebrile, p.o. intake has improved. Medications: Reviewed: Yes Vitals/I&O/Wt Last Vital Signs Temp 97.8 F 03/23/21 11:35 Pulse 74 03/23/21 11:35 Resp 18 03/23/21 11:35 BP 136/74 03/23/21 11:35 Pulse Ox 97 03/23/21 11:35 03/22/21 03/23/21 03/23/21 22:59 06:59 14:59 Intake Total 240 / 720 1048.5 / 1768.5 240 / 240 Output Total 1050 / 1050 1425 / 2475 800 / 800 Balance -810 / -330 -376.5 / -706.5 -560 / -560 Physical Exam Const: COMMON NORMALS: patient oriented x3 HENMT: COMMON NORMALS: normocephalic and atraumatic HEAD & SCALP: normocephalic and atraumatic Resp: COMMON NORMALS: clear to auscultation bilaterally EFFORT & INSPECTION: Yes symmetric chest movement AUSCULTATION: clear to auscultation bilaterally Cardio: COMMON NORMALS: regular rate, regular rhythm, S1 normal heart sound present, S2 normal heart sound present, No gallops present (Cardio), No murmurs present (Cardio), No rub (Cardio) and Peripheral pulses 2+ throughout RATE: regular rate RHYTHM: regular rhythm HEART SOUNDS: S1 normal heart sound present and S2 normal heart sound present PERIPHERAL PULSES: Peripheral pulses 2+ throughout GI: COMMON NORMALS: Normal to inspection, nondistended, normoactive bowel sounds present, Soft to palpation, non-tender, No hepatosplenomegaly present and no masses AUSCULTATION: Yes normoactive bowel sounds PALPATION: Yes Soft to palpation and Yes No hepatosplenomegaly present RECTAL EXAM: Yes deferred Extremity: COMMON NORMALS: no clubbing, cyanosis or edema and no pedal edema Neuro: COMMON NORMALS: patient oriented x3 Urinary Catheter Management^: Dey: Cath Placed During This Visit: yes Reason for Continuing Indwelling Catheter: Other Urinary Catheter Date of Insertion: 03/20/21 Urinary Catheter Time of Insertion: 15:30 Data : 03/23/21 04:56 03/23/21 04:56 Micro: Microbiology 03/23/21 09:49 Blood Culture - Preliminary Blood SPECIMEN COLLECTED 03/23/21 09:45 Blood Culture - Preliminary Blood SPECIMEN COLLECTED 03/20/21 15:28 Urine Culture - Final Urine,Clean Catch Escherichia coli 03/20/21 16:55 Blood Culture - Preliminary Blood Bacillus sp not b. anthracis A&P Assessment and plan (1) Sepsis due to urinary tract infection: Status: Acute (2) Acute kidney injury: Status: Acute (3) Abnormal finding on thyroid function test: Status: Acute (4) Hypotension: Status: Acute (5) PVC (premature ventricular contraction): Status: Chronic Sepsis due to urinary tract infection UA post leuk, WBC, 4+ bacteria, WBC of 14.1 Rocephin 2g IV daily urine culture :GNR : E.coli : Blood culture x 2 : 09/06 : Bacillus sp Follow repeat blood culture Acute Renal Failure / Hyponatremia: Resolved Admission Serum Creatinine 2.9. Current SCR : 0.9 Initially on NS at 75cc/hr.Currently has been stopped. NS bolus in ER Monitor BMP Dey placed in ER Amiodarone induced thyroid dysfunction TSH 0.01, FT4-3.06 Amiodarone dose was decreased to 100mg recently Repeat thyroid studies:TSH: 0.6, Free T4: 1.26, Free T3: 1.5 Hypotension Unclear if hx of adrenal insufficiency Resume Florinef Hold antihypertensive Additional Medical Problems Coronary artery disease hx of CABG/PCI/Stent Chronic Diastolic Heart Failure Hx of Perforated ulcer s/p ex.lap in 2018 Hypertension Dyslipidemia Tobacco abuse DVT ppx ? Heparin, SCDs Disposition :Likely will need care home placement, given his overall decline in functional status. Attestations Medical Necessity Statement*: Patient needs to be in hospital for management of sepsis. 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
[2021-03-23 17:01] LABS: SARS Covid-2 Antigen Negative (Negative)
[2021-03-23] MEDS: cefTRIAXone 2,000 MG in sodium chloride 0.9% (plus) 100 ML 200 MG IV (20:55)
[2021-03-24 03:25] VITALS: BP 106/67; PULSE 68; RESP 20; TEMP 36.8; O2SAT 94
[2021-03-24 03:26] LABS: Basophils % 0.3 %; Eosinophils # 0.1 10^3/uL (0.0-0.8); Eosinophils % 1.1 %; Hematocrit 36.6 % (42.0-52.0); Hemoglobin 11.6 g/dL (11.7-16.6); Lymphocytes # 2.2 10^3/uL (0.8-4.8); Lymphocytes % 24.9 %; Mean Corpuscular HGB Conc 31.7 g/dL (30.0-36.0); Mean Corpuscular Hemoglobin 28.9 pg (28.0-34.0); Mean Corpuscular Volume 91.3 fL (80-94); Mean Platelet Volume 10.4 fL (7.4-10.4); Monocytes # 0.7 10^3/uL (0.2-0.9); Monocytes % 8.1 %; Neutrophils # 5.78 10^3/uL (1.8-7.7); Nucleated Red Blood Cells % 0 %; Platelet Count 235 10^3/cmm (130-400); Red Blood Count 4.01 10^6/uL (4.1-5.3); Red Cell Distribution Width 13.2 % (12.1-15.1); White Blood Count 8.9 10^3/uL (4.0-10.0)
[2021-03-24 03:44] LABS: Blood Urea Nitrogen 12 mg/dL (8-23); Calcium 7.8 mg/dL (8.5-10.5); Carbon Dioxide 27 mmol/L (22-29); Chloride 103 mmol/L (98-107); Creatinine Clr Calc Pharmacy 118.6276; Glomerular Filtration Rate 113.5 mL/min (90-130); Glucose 100 mg/dL (65-115); Osmolality Calculated 284 mOsm/kg (285-295); Sodium 137 mmol/L (136-145)
[2021-03-24 07:56] VITALS: BP 108/69; PULSE 67; RESP 16; TEMP 36.4; O2SAT 98
[2021-03-24] MEDS: pantoprazole DR 40 mg Tablet PO (09:36)
[2021-03-24] MEDS: fludrocortisone 0.1 mg Tablet 0.05 MG PO (09:36)
[2021-03-24] MEDS: amiodarone 200 mg Tablet 100 MG PO (09:36)
[2021-03-24] MEDS: heparin 5,000 unit/mL INJ 1 mL 5000 UNIT SUBCUT (09:36)
[2021-03-24] MEDS: aspirin 81 mg EC Tablet PO (09:37)
[2021-03-24] MEDS: atorvastatin 40 mg Tablet PO (09:37)
--- NOTE | 2021-03-24 09:37 | PC.NURSE ---
AM medications scanned along with patient wristband. during medication administration computer timed out and scan was not saved.
[2021-03-24 11:12] VITALS: BP 111/69; PULSE 64; RESP 18; TEMP 36.4; O2SAT 95
--- NOTE | 2021-03-24 11:34 | PM.DCS ---
Discharge Providers Date of Admission: 03/20/21 19:39 Date of Discharge: March 24, 2021 Attending Provider at Admission: Silvana Butts MD Attending Provider at Discharge: Mark Qiu MD Primary Care Provider: Valencia Laureano DO Diagnoses at Discharge Discharge Diagnosis (1) Sepsis due to urinary tract infection: Status: Resolved (2) Acute kidney injury: Status: Resolved (3) Abnormal finding on thyroid function test: Status: Acute (4) Hypotension: Status: Resolved (5) PVC (premature ventricular contraction): Status: Chronic Permanent problem details: 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[place], on chronic amiodorone therapy Reason for Visit Reason for Visit: WEAKNESS; CONSTIPATED Hospital Course Hospital Course 65-year-old male with a past medical history significant for coronary artery disease status post CABG x2, hypertension, dyslipidemia, chronic diastolic heart failure, tobacco abuse, perforated duodenal ulcer s/p exp/lap 10/2017, PVC started on amiodarone, orthostatic hypotension on florinef with recent episode of hypotension, neurogenic bladder rq self-catheterization who presented to ER with generalized weakness. Patient stated this was associated with subjective fever, chills and also yellow pus like appearing urine. Noted similar symptoms in the past with UTIs. Upon arrival to ER his initial laboratory workup showed a WBC of 14.1, hemoglobin of 13.5, hematocrit 42.6 and a platelet count of 168. Sodium 128, potassium 4.6, chloride 94, bicarb 22, BUN 37 and creatinine of 2.9. Most recent creatinine of 0.9 in January of 2021. AST of 237, ALT of 43 and alkaline phosphatase of 80. Troponin T of 60 with repeat of 42.1. ProBNP of 1477. Urinalysis showed 2+ leukocyte esterase, negative nitrates and 4+ bacteria initial vitals showed a blood pressure of 74/48, respiratory rate 24, pulse ox of 93%, and heart rate of 75. He was admitted for management of sepsis secondary to complicated UTI. As well as CARY. During the hospital stay he was kept on ceftriaxone 2 g IV daily, to which he responded well, urine culture grew E. coli, blood culture grew, bacillus SP, repeat blood culture have been negative till date.CARY and hyponatremia resolved with adequate IV hydration. At the time of discharge serum creatinine was at baseline.Amiodarone induced thyroid dysfunction: Repeat thyroid function test:TSH: 0.6, Free T4: 1.26, Free T3: 1.5. He was continued on his reduced amiodarone dose of 100 mg p.o. daily. For his chronic orthostatic hypotension: He was kept on compression stocking as well as, optimum hydration was maintained, Florinef was continued. Overall patient responded well to have medical management.At the time of discharge patient was hemodynamically stable , afebrile. Given the overall progressive decline in the functional status of the patient he qualified for SNF placement. Patient is being discharged to [facility]. Physical Exam Const: COMMON NORMALS: patient oriented x3 HENMT: COMMON NORMALS: normocephalic and atraumatic HEAD & SCALP: normocephalic and atraumatic Resp: COMMON NORMALS: clear to auscultation bilaterally EFFORT & INSPECTION: Yes symmetric chest movement AUSCULTATION: clear to auscultation bilaterally Cardio: COMMON NORMALS: regular rate, regular rhythm, S1 normal heart sound present, S2 normal heart sound present, No gallops present (Cardio), No murmurs present (Cardio), No rub (Cardio) and Peripheral pulses 2+ throughout RATE: regular rate RHYTHM: regular rhythm HEART SOUNDS: S1 normal heart sound present and S2 normal heart sound present PERIPHERAL PULSES: Peripheral pulses 2+ throughout GI: COMMON NORMALS: Normal to inspection, nondistended, normoactive bowel sounds present, Soft to palpation, non-tender, No hepatosplenomegaly present and no masses AUSCULTATION: Yes normoactive bowel sounds PALPATION: Yes Soft to palpation and Yes No hepatosplenomegaly present RECTAL EXAM: Yes deferred Extremity: COMMON NORMALS: no clubbing, cyanosis or edema and no pedal edema Neuro: COMMON NORMALS: patient oriented x3 Urinary Catheter Management^: Dey: Cath Placed During This Visit: yes Reason for Continuing Indwelling Catheter: Other Urinary Catheter Date of Insertion: 03/20/21 Urinary Catheter Time of Insertion: 15:30 Discharge Data Data Completed and Pending: Completed Studies During Hospitalization Category Date Time Status CT abdomen pelvis wo con [id number] Urge nt Cat Scan 03/20/21 14:[address] head wo con* 7 0450 Routine Cat Scan 03/21/21 11:31 Completed XR chest 1V miley ble [id number] Urgent Exams 03/20/21 14:17 Completed Pending at discharge Category Date Time Status Blood Culture Rou arabella Lab 03/23/21 09:49 Results Blood Culture Sta t Lab 03/20/21 16:55 Results Labs from last 24 hours 03/24/21 03/24/21 03/23/21 03:05 03:05 Unknown WBC 8.9 RBC 4.01 L Hgb 11.6 L Hct 36.6 L MCV 91.3 MCH 28.9 MCHC 31.7 RDW 13.2 Plt Count 235 MPV 10.4 Neut % (Auto) 65.0 Lymph % (Auto) 24.9 Murray % (Auto) 8.1 Eos % (Auto) 1.1 Baso % (Auto) 0.3 Neut # (Auto) 5.78 Lymph # (Auto) 2.2 Murray # (Auto) 0.7 Eos # (Auto) 0.1 Baso # (Auto) 0.0 Nucleated RBC % (a uto) 0 Nucleated RBCs # 0.0 Sodium 137 Potassium 4.0 Chloride 103 Carbon Dioxide 27 Anion Gap 11.0 BUN 12 Creatinine 0.7 GFR Calculation 113.5 Glucose 100 Calculated Osmolal ity 284 L Calcium 7.8 L SARS-CoV-2 Ag (Rap id) Negative Vitals: Last Vital Signs Temp 97.5 F L 03/24/21 11:12 Pulse 64 03/24/21 11:12 Resp 18 03/24/21 11:12 BP 111/69 03/24/21 11:12 Pulse Ox 95 03/24/21 11:12 Discharge Plan Discharge Patient Disposition: [facility] w Plan Readm Condition: Stable Prescriptions: New levofloxacin 500 mg tablet 500 mg PO DAILY 7 Days RF: 0 Continued amlodipine 5 mg tablet 5 mg PO BID@1000,2200 PRN (Reason: unknown) RF: 0 [id number] [Ueacwk-Zzhts-JJO (with antiox)] 500-500-66.7 mg tablet 1 tab PO DAILY@1000 RF: 0 hydrocodone-acetaminophen 7.5-325 mg tablet 1 tab PO TID PRN (Reason: pain) 30 Days Qty: 90 RF: 0 hydrocodone-acetaminophen 7.5-325 mg tablet 1 tab PO TID PRN (Reason: pain) 30 Days Qty: 90 RF: 0 ascorbic acid (vitamin C) 1,000 mg tablet extended release 1,000 mg PO Q12H RF: 0 fludrocortisone 0.1 mg tablet 0.05 mg PO BID PRN (Reason: unknown) Qty: 90 RF: 3 pantoprazole 40 mg tablet,delayed release (DR/EC) 40 mg PO BID@1000,2200 Qty: 60 RF: 5 docusate sodium [Stool Softener] 100 mg capsule 100 mg PO TID@1000,1200,2200 Qty: 90 RF: 1 amiodarone 200 mg tablet 100 mg PO DAILY@1000 Qty: 30 RF: 0 rosuvastatin [Crestor] 10 mg tablet 10 mg PO DAILY@1000 Qty: 90 RF: 0 clonidine HCl 0.1 mg tablet 0.1 mg PO BID PRN (Reason: Systolic BP > 180 mmhg) Qty: 0 RF: 0 methenamine hippurate [Hiprex] 1 gram tablet 1 g PO BID RF: 0 Glucosamine 500 mg Tablet 500 mg PO DAILY RF: 0 Healthy Eyes 1,000 unit-200 mg-60 unit-2 mg Tablet 1 tab PO DAILY RF: 0 potassium chloride 10 mEq tablet extended release 10 meq PO DAILY@1000 RF: 0 aspirin 81 mg Tablet,Delayed Release (Dr/Ec) 81 mg PO DAILY@1000 RF: 0 Neem 1 tab PO DAILY@1000 RF: 0 Discharge Orders: Discharge Order (Routine); Ordered 03/24/21 Ordered By: Mark Qiu Referrals: Valencia Laureano DO [Primary Care Provider] - 2 weeks (Please call Dr. Laureano's office to schedule an appointment to be seen within 2 weeks.) Latesha Urbano MD [Physician] - 04/05/21 1:40 pm Discharge Diet: Regular Discharge Activity: Resume usual activity Patient Instructions: Levofloxacin (By mouth), Acute Kidney Injury (DC), Urinary Tract Infection in Men (GEN), Opioid Safety Discharge Attestations Time Spent in Discharge Care*: less than 30 min Specific Discharge Activities: educating patient, educating and/or supporting family/caregiver, discussing with pcp/other providers, discussing with case management associate/social workers/dc planners, documenting/other paperwork and evaluating patient/reviewing data Status at Discharge: Cognitive status at discharge: cognitively intact, Behavioral status at discharge: cooperative, Functional status at discharge: other assisted ambulation Overall status at discharge: patient is back to baseline Quality Metrics Clinical Quality Measures During this hospital stay, did patient experience: None Coding Level of Care Code Acute Chg FW DC note Diagnoses Sepsis due to urinary tract infection A41.9; N39.0 Acute kidney injury N17.9 Abnormal finding on thyroid function test R94.6 Hypotension I95.9 PVC (premature ventricular contraction) I49.3
[2021-03-24 15:53] VITALS: BP 175/107; PULSE 67; RESP 18; TEMP 36.4; O2SAT 97
--- NOTE | 2021-03-24 15:54 | PC.NURSE ---
I reported the high bp to the nurse 175/107 177/104
[2021-03-24 16:17] VITALS: PULSE 67; RESP 18; TEMP 36.4; O2SAT 97
== END 2021-03-24 16:18 | disposition skilled nursing facility (03) | DRG 872 ==
LOC: ER 17:56 → MEDSURG 20:02
PROVIDERS: Hospitalist; Admitting Provider Student in an Organized Health Care Education/Training Program; Emergency Provider Family Medicine; PCP Family Medicine; Visit Provider Internal Medicine
DX: A41.9 Sepsis, unspecified organism (principal); N39.0 Urinary tract infection, site not specified; N17.9 Acute kidney failure, unspecified; I13.0 Hypertensive heart and chronic kidney disease with heart failure and stage 1 through stage 4 chronic kidney disease, or unspecified chronic kidney disease; I50.32 Chronic diastolic (congestive) heart failure; I95.9 Hypotension, unspecified; R94.6 Abnormal results of thyroid function studies; I49.3 Ventricular premature depolarization; N31.9 Neuromuscular dysfunction of bladder, unspecified; I25.118 Atherosclerotic heart disease of native coronary artery with other forms of angina pectoris; N18.30 Chronic kidney disease, stage 3 unspecified; E78.5 Hyperlipidemia, unspecified; I25.2 Old myocardial infarction; K21.9 Gastro-esophageal reflux disease without esophagitis; K59.09 Other constipation; M51.36 Other intervertebral disc degeneration, lumbar region; Z95.1 Presence of aortocoronary bypass graft; Z95.5 Presence of coronary angioplasty implant and graft; Z72.0 Tobacco use; Z87.11 Personal history of peptic ulcer disease; Z79.82 Long term (current) use of aspirin; Z79.891 Long term (current) use of opiate analgesic; Z87.440 Personal history of urinary (tract) infections; Z86.718 Personal history of other venous thrombosis and embolism
CPT/HCPCS: 36415; 51702; 70450; 71045; 74176; 80048; 80053; 81001; 83605; 83690; 83735; 83880; 84439; 84443; 84481; 84484; 85025; 87040; 87077; 87086; 87186; 87205; 87426; 93005; 96361; 96365; 96372; 97110; 97162; 97167; 97530; 97535; 99285; J0696; J1644; J7030

== ENCOUNTER → 2021-04-18 15:44 | Outpatient (BNVA) | payer MEDICAID, SELFPAY | PROVIDERS: PCP Family Medicine; Visit Provider Family Medicine | DX: R94.6 Abnormal results of thyroid function studies (principal) | CPT/HCPCS: 84439; 84443; 84480 ==

== ENCOUNTER → 2021-04-22 10:00 | Outpatient (BNVA) | payer MEDICAID, SELFPAY | PROVIDERS: PCP Family Medicine; Visit Provider Orthopaedic Surgery | DX: M48.062 Spinal stenosis, lumbar region with neurogenic claudication (principal) | CPT/HCPCS: 72100 ==

== ENCOUNTER 2021-05-03 06:00 | Outpatient (RCR) | payer MEDICAID, SELFPAY | END 2021-05-03 23:59 | disposition home or self-care (01) | LOC: SPT 06:00 | PROVIDERS: PCP Family Medicine; Referring Provider Orthopaedic Surgery; Visit Provider Orthopaedic Surgery | DX: M54.5 Low back pain (principal); G89.29 Other chronic pain; M48.061 Spinal stenosis, lumbar region without neurogenic claudication | CPT/HCPCS: 97161 ==

== ENCOUNTER 2021-05-04 06:00 | Outpatient (RCR) | payer MEDICAID, SELFPAY | END 2021-06-02 23:59 | disposition home or self-care (01) | LOC: SPT 06:00 | PROVIDERS: PCP Family Medicine; Referring Provider Orthopaedic Surgery; Visit Provider Orthopaedic Surgery | DX: M54.5 Low back pain (principal); G89.29 Other chronic pain; M48.061 Spinal stenosis, lumbar region without neurogenic claudication | CPT/HCPCS: 97110 ==

== ENCOUNTER 2021-05-11 15:23 | Outpatient (CLI) | payer MEDICAID, SELFPAY ==
--- NOTE | 2021-05-11 16:00 | MR_ITS ---
WS: [id number] MRI LUMBAR SPINE NONCONTRAST TECHNIQUE: Sagittal T1, T2 and STIR imaging. Axial T1 and T2 imaging. CLINICAL INFORMATION: M48.062 - Spinal stenosis, lumbar region with neurogenic ... COMPARISON: MRI December 06, 2020 FINDINGS: Mild lumbar curve. No acute compression. Interval postoperative changes L4-5 and L5-S1 left hemilamin ectomy new from previous. L1-L2: Normal. L2-L3: Mild annular bulging. Mild facet arthropathy. Mild bilateral foraminal narrowing. L3-L4: Mild annular bulging. Mild facet arthropathy. Mild bilateral foraminal narrowing. L4-L5: Mild annular bulging with slight effacement of ventral thecal sac. Left hemilaminectomy. Mild left greater than right foraminal narrowing. Interval left hemilaminectomy. Mild facet arthropathy wi th small facet effusions. L5-S1: Interval left hemilaminectomy. Mild disc bulging with osteophytic ridging. Slight narrowing of the left subarticular recess improved from previous. Spinal canal is patent. Mild facet arthropathy. Mild bilateral foraminal narrowing. Partially evaluated infrarenal abdominal aortic aneurysm measuring 4.2 x 3.6 cm appears unchanged fro m previous. Associated mural thrombus. Visualized pelvic bony structures: Normal. Paravertebral soft tissues: Normal. MR/MR lumbar spine wo con* [id number] IMPRESSION: 1. Mild lumbar curve. No acute compression. 2. Postoperative left L4-5 and left L5-S1 hemilaminectomy new from previous. Improved narrowing of the L4-5 central canal and L5-S1 left subarticular recess . Mild residual encroachment on the left S1 nerve root. 3. No high-grade central canal stenosis. 4. Mild bilateral foraminal narrowing bilateral L4-L5 and bilateral L5-S1 unch anged from previous. 5. Mild facet arthropathy L4-L5 and L5-S1 with small facet effusions L4-5. 6. Partially evaluated infrarenal abdominal aortic aneurysm measuring 4.2 x 3. 6 cm appears unchanged from previous. Associated mural thrombus.
== END 2021-05-11 15:24 | disposition home or self-care (01) ==
LOC: RADSHAW 15:26
PROVIDERS: PCP Family Medicine; Visit Provider Orthopaedic Surgery
DX: M48.062 Spinal stenosis, lumbar region with neurogenic claudication (principal); I71.4 Abdominal aortic aneurysm, without rupture; M47.816 Spondylosis without myelopathy or radiculopathy, lumbar region; M47.817 Spondylosis without myelopathy or radiculopathy, lumbosacral region
CPT/HCPCS: 72148

== ENCOUNTER 2021-05-18 07:18 | Outpatient (CLI) | payer MEDICAID, SELFPAY ==
--- NOTE | 2021-05-18 08:00 | USCV_ITS ---
Cali Turner Age: 65 Gender: M : 1955 Exam Date: 05/18/2021 07:47 Ordering Phys: Valencia Laurenao DO Technologist: Rae Gibson [place] [facility] [place] AAA HISTORY: Diameter (cm) AP x Transverse x Length Velocity (cm/s) Waveform Prox Aorta: 2.58 x 2.74 x 40.80 Mid Aorta: 3.75 x 4.09 x 22.30 Distal Aorta: 2.68 x 3.30 x 27.70 Right Iliac Prox: 1.04 x 0.93 x 57.70 Left Iliac Prox: 1.03 x 1.14 x 60.80 Stent Prox Landing x x Aneurysmal Sac Max x x Lt Lat Sac Dim Rt Lat Sac Dim Stent Dist Landing x x Right Iliac Stent x x Left Iliac Stent x x Right Renal Art Left Renal Art FINDINGS: Comparison: none available. The abdominal aortic aneurysm involves the infrarenal aorta. A fusiform abdominal aortic aneurysm is noted with a maximal diameter of 4.1 cm. Mild eccentric thrombus in the aorta. There is no evidence of a right common iliac artery aneurysm. There is no evidence of a left common iliac artery aneurysm. CONCLUSIONS AAA, maximum diameter of 4.[address] Minnie Estes DO (Electronically Signed) Final Date: 18 May 2021 08:24 S
== END 2021-05-18 07:19 | disposition home or self-care (01) ==
LOC: US 07:21
PROVIDERS: PCP Family Medicine; Visit Provider Family Medicine
DX: I71.4 Abdominal aortic aneurysm, without rupture (principal)
CPT/HCPCS: 93978

== ENCOUNTER 2021-05-29 13:50 | Emergency (ER) | payer MEDICAID, SELFPAY ==
[2021-05-29 13:59] VITALS: PULSE 80; RESP 20; TEMP 36.6; O2SAT 97; BMI 33.9
--- NOTE | 2021-05-29 14:06 | ED_ITS ---
HPI - Male Genitourinary General: Chief complaint: Urogenital-Male Stated complaint: pt thinks he has bladder infection Time Seen by Provider: 05/29/21 14:06 Source: patient Mode of arrival: ambulatory Limitations: no limitations History of Present Illness: HPI Narrative: 65-year-old male presents to the ER today for possible bladder infection. Patient reports he has had issues with urinating for years and self caths. He reports he started seeing some pus in his catheter over the last couple of days and has also noticed that he has weakness and has fallen more than normal. Patient reports in the past when this happens he usually has a UTI and will let it get too bad before getting help. Patient denies any fever or chills. Denies any nausea, vomiting, diarrhea, cons tipation. Patient reports he has had multiple abdominal surgeries but denies BPH or bladder cancers. MD Complaint: other (pus in urine when cathing) Onset (ago): day(s) (2) Duration: intermittent Severity: moderate Associated symptoms: Reports other (falling and weakness); Deny nausea or vomiting Review of Systems Const: Reports: fatigue and other (weakness); Denies: fever(s) or chills ENMT: Denies: throat pain, nasal discharge or nasal congestion Card: Denies: chest pain or palpitations Resp: Denies: dyspnea, productive cough or wheezing GI: Denies: abdominal pain, nausea, vomiting or diarrhea : Reports: other (pus in urine/cath) Musc: Reports: muscle weakness; Denies: extremity pain Skin/Breast: Denies: rash Neuro: Denies: headache(s) PFSH ED PFSH: Medical History Abnormal finding on thyroid function test Acute kidney injury Aortic embolism or thrombosis Atherosclerosis of coronary artery of [place] heart with stable angina pectoris Chronic idiopathic constipation CKD (chronic kidney disease), stage III DDD (degenerative disc disease), lumbar Diastolic CHF Dyslipidemia GERD (gastroesophageal reflux disease) Hypertension Hypotension Labile blood pressure Neurogenic bladder Nocturnal enuresis Orthostatic hypotension Perforated gastric ulcer PVC (premature ventricular contraction) 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, on chronic amiodorone therapy Recurrent UTI Sepsis due to urinary tract infection Urinary retention Surgical History H/O esophagogastroduodenoscopy H/O exploratory laparotomy History of colonoscopy with polypectomy History of coronary artery stent placement X1 around 2018 in [place] History of heart bypass surgery 2 vessels at [facility] in [place] History of incisional hernia repair History of open heart surgery S/P tonsillectomy and adenoidectomy Status post colonoscopy 2019 Family History Other CAD (coronary artery disease) Cancer Hypertension Social History Alcohol intake: never Caregiver/support person: No Lives independently: No Household members: family Marital status: Single Current occupational status: disabled History of recent travel: No Current gender identity: Male Physical Exam Const: COMMON NORMALS: no acute distress and patient oriented x3 GENERAL APPEARANCE: cooperative, comfortable and frail appearing Lymph: LYMPHATIC: no lymphadenopathy noted Resp: COMMON NORMALS: normal respiratory effort, No retractions and clear to auscultation bilaterally AUSCULTATION: clear to auscultation bilaterally Cardio: COMMON NORMALS: regular rate, regular rhythm and No murmurs present (Cardio) RATE: regular rate RHYTHM: regular rhythm GI: COMMON NORMALS: Normal to inspection, nondistended, normoactive bowel sounds present and Soft to palpation PALPATION: Yes Soft to palpation, Yes Tenderness to palpation present (GI) (mild suprapubic tenderness) and No Guarding due to palpation present (GI) : COMMON NORMALS: Yes no CVA tenderness, Yes normal external exam and Yes no scrotal swelling BLADDER/KIDNEY EXAM: Yes catheter in place Catheter type (Male): other (pt self caths), Yes bladder normal to palpation and Yes no CVA tenderness PENIS: normal penis MEATUS: meatus normal Back/Pelvis: COMMON NORMALS: no CVA tenderness Extremity: COMMON NORMALS: normal to inspection Neuro: COMMON NORMALS: patient oriented x3 Psych: COMMON NORMALS: Normal thought process present THOUGHT PROCESS: Normal thought process present Skin: COMMON NORMALS: no rashes or lesions noted GENERAL SKIN EXAM: no rashes or lesions noted Course ED course: Patient presents to the ER today for possible UTI. Patient reports recurrent UTIs. Patient does self cath and has noticed pus in his catheter over the last couple of days in addition to increased falls and weakness. Will get UA in addition to lab work. Vitals otherwise stable Vital Signs: Vital signs: Vital Signs Temperature 97.9 F 05/29/21 13:59 Pulse Rate 80 05/29/21 13:59 Respiratory Rate 20 H 05/29/21 13:59 Pulse Oximetry 97 05/29/21 13:59 MDM - Male MDM Narrative: Medical decision making narrative: Patient presents to the ER today for pus in his catheter when doing self caths in addition to weakness and falls more frequent than normal. Patient does appear to have a UTI. White count is slightly bumped at this time also. We will do a Rocephin injection in the ER and also start patient on Cipro at this time. Discussed findings with patient who was in agreement with the treatment plan. He will follow up with his PCP in 3 to 5 days. Take medication as prescribed and increase fluid intake. Lab Data: Attestation: I reviewed the patient's lab results. Lab results narrative: Slighty elevated WBC otherwise unremarkable CBC, CMP. Labs: Lab Results 05/29/21 05/29/21 05/29/21 14:25 14:35 14:35 WBC 11.5 10^3/uL H 10 ^3/uL (4.0-10.0) RBC 4.68 10^6/uL 10^6 /uL (4.1-5.3) Hgb 14.0 g/dL g/dL (11.7-16.6) Hct 44.2 % % (42.0-52.0) MCV 94.4 fl H fl (80-94) MCH 29.9 pg pg (28.0-34.0) MCHC 31.7 g/dL g/dL (30.0-36.0) RDW 14.1 % % (12.1-15.1) Plt Count 187 10^3/cmm 10^3 /cmm (130-400) MPV 9.8 fL fL (7.4-10.4) Neut % (Auto) 69.8 % % Lymph % (Auto) 20.9 % % [place] % (Auto) 8.2 % % Eos % (Auto) 0.6 % % Baso % (Auto) 0.2 % % Neut # (Auto) 8.00 10^3/uL H 10 ^3/uL (1.8-7.7) Lymph # (Auto) 2.4 10^3/uL 10^3/ uL (0.8-4.8) [place] # (Auto) 0.9 10^3/uL 10^3/ uL (0.2-0.9) Eos # (Auto) 0.1 10^3/uL 10^3/ uL (0.0-0.8) Baso # (Auto) 0.0 10^3/uL 10^3/ uL (0.0-0.1) Nucleated RBC % (a uto) 0 % % Nucleated RBCs # 0.0 /100WBC /100W BC Sodium 136 mmol/L mmol/L (136-145) Potassium 4.6 mmol/L mmol/L (3.5-5.1) Chloride 101 mmol/L mmol/L (98-107) Carbon Dioxide 27 mmol/L mmol/L (22-29) Anion Gap 12.6 (5-19) BUN 23 mg/dL mg/dL (8-23) Creatinine 1.1 mg/dL mg/dL (0.7-1.2) GFR Calculation 67.4 mL/min L mL/ min (90-130) Glucose 98 mg/dL mg/dL (65-115) Calculated Osmolal ity 286 mOsm/kg mOsm/ kg (285-295) Calcium 8.7 mg/dL mg/dL (8.5-10.5) Total Bilirubin 0.3 mg/dL mg/dL (0.15-1.2) AST 11 U/L U/L (0-40) ALT 10 U/L U/L (0-41) Alkaline Phosphata se 83 IU/L IU/L (40-130) Total Protein 6.5 g/dL L g/dL (6.6-8.7) Albumin 3.7 g/dL g/dL (3.5-5.2) Globulin 2.8 g/dL g/dL (1.3-4.6) Urine Color Yellow (Yellow) Urine Appearance Hazy A (CLEAR) Urine pH 6 (5-7) Ur Specific Gravit y 1.015 (1.005-1.030) Urine Protein Neg (Negative) Urine Glucose (UA) Norm (Normal) Urine Ketones Negative (Negative) Urine Blood 2+ H (Negative) Urine Nitrate Negative (Negative) Urine Bilirubin Neg (Negative) Urine Urobilinogen Norm mg/dL mg/dL (Negative) Ur Leukocyte Lois ase 2+ H (Negative) Urine RBC 15-25 /hpf H /hpf (0-2) Urine WBC Too numerous to c nt /hpf H /hpf (0-5) Ur Squamous Epith Cells Rare /hpf /hpf (0-5) Amorphous Sediment Not Reportable Urine Bacteria 2+ /hpf H /hpf (NONE) UA indicates infection with 2+ leukocytes 2+ blood and too numerous to count white cells. Critical Care Time Critical Care Time: Critical Care Time: No Discharge Plan Discharge Patient Disposition: Home Clinical Impression: Urinary tract infection in male Condition: Stable Prescriptions: New Cipro 500 mg tablet 500 mg PO BID Qty: 10 RF: 0 No Action amlodipine 5 mg tablet 5 mg PO BID@1000,2200 PRN (Reason: unknown) RF: 0 [id number] [[id number] (with antiox)] 500-500-66.7 mg tablet 1 tab PO DAILY@1000 RF: 0 hydrocodone-acetaminophen 7.5-325 mg tablet 1 tab PO TID PRN (Reason: pain) 30 Days Qty: 90 RF: 0 ascorbic acid (vitamin C) 1,000 mg tablet extended release 1,000 mg PO Q12H RF: 0 fludrocortisone 0.1 mg tablet 0.05 mg PO BID PRN (Reason: unknown) Qty: 90 RF: 3 pantoprazole 40 mg tablet,delayed release (DR/EC) 40 mg PO BID@1000,2200 Qty: 180 RF: 1 potassium chloride 10 mEq tablet extended release See Rx Instructions .ROUTE .COMPLEX Qty: 90 RF: 0 rosuvastatin 10 mg tablet See Rx Instructions .ROUTE .COMPLEX Qty: 90 RF: 0 amiodarone 200 mg tablet 100 mg PO DAILY@1000 Qty: 90 RF: 0 docusate sodium [Stool Softener] 100 mg capsule 100 mg PO TID@1000,1200,2200 Qty: 90 RF: 0 methenamine hippurate 1 gram tablet See Rx Instructions .ROUTE .COMPLEX Qty: 60 RF: 2 clonidine HCl 0.1 mg tablet 0.1 mg PO BID PRN (Reason: Systolic BP > 180 mmhg) Qty: 0 RF: 0 Glucosamine 500 mg Tablet 500 mg PO DAILY RF: 0 Healthy Eyes 1,000 unit-200 mg-60 unit-2 mg Tablet 1 tab PO DAILY RF: 0 aspirin 81 mg Tablet,Delayed Release (Dr/Ec) 81 mg PO DAILY@1000 RF: 0 Neem 1 tab PO DAILY@1000 RF: 0 Discharge Orders: Discharge ED (Routine); Ordered 05/29/21 Ordered By: Lucy Barrett Referrals: Valencia Laureano DO [Primary Care Provider] - Discharge Diet: Usual diet Discharge Activity: Resume usual activity Patient Instructions: Opioid Safety Activity Restrictions/Additional Instructions: Take Cipro as prescribed. Increase fluid intake. Follow-up with PCP in 3 to 5 days. Return to the ER with any new or worsening symptoms. Coding Level of Care Code ED Recycle Coordinator for Nena Fwd Exam Comprehensive
[2021-05-29 14:50] LABS: Basophils % 0.2 %; Eosinophils # 0.1 10^3/uL (0.0-0.8); Eosinophils % 0.6 %; Hematocrit 44.2 % (42.0-52.0); Lymphocytes # 2.4 10^3/uL (0.8-4.8); Lymphocytes % 20.9 %; Mean Corpuscular HGB Conc 31.7 g/dL (30.0-36.0); Mean Corpuscular Hemoglobin 29.9 pg (28.0-34.0); Mean Corpuscular Volume 94.4 fl (80-94); Mean Platelet Volume 9.8 fL (7.4-10.4); Monocytes # 0.9 10^3/uL (0.2-0.9); Monocytes % 8.2 %; Neutrophils % 69.8 %; Nucleated Red Blood Cells % 0 %; Platelet Count 187 10^3/cmm (130-400); Red Blood Count 4.68 10^6/uL (4.1-5.3); Red Cell Distribution Width 14.1 % (12.1-15.1); White Blood Count 11.5 10^3/uL (4.0-10.0)
[2021-05-29 15:07] LABS: Alanine Aminotransferase 10 U/L (0-41); Albumin Level 3.7 g/dL (3.5-5.2); Alkaline Phosphatase 83 IU/L (40-130); Anion Gap 12.6 (5-19); Aspartate Amino Transferase 11 U/L (0-40); Blood Urea Nitrogen 23 mg/dL (8-23); Calcium 8.7 mg/dL (8.5-10.5); Carbon Dioxide 27 mmol/L (22-29); Chloride 101 mmol/L (98-107); Globulin 2.8 g/dL (1.3-4.6); Glomerular Filtration Rate 67.4 mL/min (90-130); Glucose 98 mg/dL (65-115); Osmolality Calculated 286 mOsm/kg (285-295); Potassium 4.6 mmol/L (3.5-5.1); Sodium 136 mmol/L (136-145); Total Bilirubin 0.3 mg/dL (0.15-1.2); Total Protein 6.5 g/dL (6.6-8.7)
[2021-05-29 15:15] LABS: Add Urine Microscopic? YES; Bilirubin Urine Neg (Negative); Blood Urine 2+ (Negative); Glucose Urine UA Norm (Normal); Ketones Urine Negative (Negative); Leukocyte Esterase Urine 2+ (Negative); Nitrate Urine Negative (Negative); Protein Urine Neg (Negative); Specific Gravity, Urine 1.015 (1.005-1.030); Urine Appearance Hazy (CLEAR); Urine Color Yellow (Yellow); Urobilinogen Urine Norm (Negative); pH Urine 6 (5-7)
[2021-05-29 15:16] LABS: RBC Urine 15-25 /hpf (0-2); Squamous Epithelial Cell Urine RARE /hpf (0-5); WBC Urine TOO NUMEROUS TO CNT /hpf (0-5)
[2021-05-29 15:17] LABS: Add Urine Culture? Yes; Bacteria Urine 2+ /hpf
[2021-05-29] MEDS: ciprofloxacin 500 mg Tablet PO (15:36)
[2021-05-29] MEDS: cefTRIAXone 1,000 MG in lidocaine 1% 2.1 ML 2.1 MG IM (15:37)
== END 2021-05-29 15:45 | disposition home or self-care (01) ==
PROVIDERS: Emergency Provider Physician Assistant; PCP Family Medicine
DX: N39.0 Urinary tract infection, site not specified (principal); Z79.82 Long term (current) use of aspirin; I25.10 Atherosclerotic heart disease of native coronary artery without angina pectoris; I13.0 Hypertensive heart and chronic kidney disease with heart failure and stage 1 through stage 4 chronic kidney disease, or unspecified chronic kidney disease; N18.30 Chronic kidney disease, stage 3 unspecified; I50.30 Unspecified diastolic (congestive) heart failure; E78.5 Hyperlipidemia, unspecified
CPT/HCPCS: 80053; 81001; 85025; 87077; 87086; 87186; 96372; 99283; J0696

== ENCOUNTER 2021-06-03 06:00 | Outpatient (RCR) | payer MEDICAID, SELFPAY | END 2021-07-03 23:59 | disposition home or self-care (01) | LOC: SPT 06:00 | PROVIDERS: PCP Family Medicine; Referring Provider Orthopaedic Surgery; Visit Provider Orthopaedic Surgery | DX: G89.29 Other chronic pain (principal); M54.50 Low back pain, unspecified | CPT/HCPCS: 97110 ==

== ENCOUNTER 2021-07-04 06:00 | Outpatient (RCR) | payer MEDICAID, SELFPAY | END 2021-07-14 23:00 | disposition home or self-care (01) | LOC: SPT 06:00 | PROVIDERS: PCP Family Medicine; Visit Provider Orthopaedic Surgery | DX: G89.29 Other chronic pain (principal); M48.061 Spinal stenosis, lumbar region without neurogenic claudication | CPT/HCPCS: 97110 ==